=== PATIENT | female | born 1960 | race Caucasian/White ===

== ENCOUNTER 2016-04-29 11:43 | Inpatient (IN) ==
[2016-04-29] MEDS ORDERED: ASPIRIN PO ONE (11:50)
[2016-04-29] MEDS ORDERED: ASPIRIN ONE (11:54)
[2016-04-29 12:12] LABS: MANUAL DIFF NEEDED? NO
[2016-04-29 12:21] LABS: BASO% 0.2 % (0.0-0.8); EOS# 0.16 X1000 (0.0-0.7); HEMATOCRIT 45.3 % (37.0-47.0); HEMOGLOBIN 15.2 g/dL (12.0-16.0); IMM GRAN# 0.02 X1000 (0.0-0.04); IMM GRAN% 0.2 % (0.0-0.5); LYMPH% 28.4 % (20.5-51.1); MCH 27.8 PG (27-31); MCHC 33.6 g/dL (33-37); MONO# 0.71 X1000 (0.11-0.59); MONO% 8.8 % (1.7-9.3); MPV 11.4 FL (7.4-10.4); NEUT% 60.4 % (42.2-75.2); PLT 244 X1000 (130-400); RBC 5.46 XMIL (4.2-5.4)
[2016-04-29 12:32] LABS: CALCIUM 9.3 mg/dL (8.8-10.2); MAGNESIUM 1.9 mg/dL (1.5-2.7); POTASSIUM 3.2 mmol/L (3.5-5.1); TOTAL BILIRUBIN 0.3 mg/dL (0.20-1.00); TOTAL PROTEIN 7.2 g/dL (6.3-8.3)
--- NOTE | 2016-04-29 12:35 | ED EKG INTERP ---
EKG Interpretation - EKG Time of EKG reading by physician:: 11:47 EKG Read and Signed by:: Tio Hoskins EKG Interpretation (*Must complete 3 of following elements*): Normal Rate: 94 Rhythm: normal sinus rhythm Comments: normal ECG Attestation - Scribe Verification/Attestation Scribe:: Julianne Stout Acting as Scribe for:: Tio Hoskins Scribe documention review:: This chart was documented by a scribe and accurately reflects the service the provider performed and the decisions made by the provider.
[2016-04-29 12:51] LABS: INR 1.04 (0.86-1.15); PROTIME 13.9 Seconds (12.1-15.5)
--- NOTE | 2016-04-29 12:53 | EKG Report ---
Test Performed on : 04/29/2016 11:47:05 AM Test Reason : chest Blood Pressure : / mmHG Vent. Rate : 094 BPM Atrial Rate : 094 BPM P-R Int : 136 ms QRS Dur : 082 ms QT Int : 362 ms P-R-T Axes : 048 006 028 degrees QTc Int : 452 ms Normal sinus rhythm. Normal ECG When compared with ECG of 28-JUN-2015 22:50, ST elevation now present in Lateral leads Unconfirmed Result
--- NOTE | 2016-04-29 13:09 | PROVIDER DOCUMENTATION ---
Addendum entered and electronically signed by Julianne Stout Scribe 04/29/16 18:05 : Progress - CONSULTS/PCP/HOSPITALIST Notification #1 *Consult/PCP/Hospitalist*: Dr. Shepard Time Discussed: 18:00 (Dr. Shepard states will consulted for cardiology ) Reason/Comments: Dr. Hoskins consulted with Dr. Shepard about Pt Consult Disposition: other (Dr. Shepard states consult with hospitialist about admit of Pt. Dr. Shepard states make PT NPO at midnight and will cath tomorrow.) #2 Consult: Brenda Lora Hospitalist Time Discussed: 18:02 (Hospitalist accepted admit ) Reason/Comments: Dr. Hoskins consults with Brenda Lora Hospitalist about admit of PT Consult Disposition: Admit Addendum entered and electronically signed by Julianne Stout Scribe 04/29/16 17:47 : EKG Interpretation - EKG Time of EKG reading by physician:: 17:17 EKG Read and Signed by:: Tio Hoskisn EKG Interpretation (*Must complete 3 of following elements*): Abnormal Rate: 85 Rhythm: normal sinus rhythm Comments: nonspecific ST and T wave abnormality Addendum entered and electronically signed by Tio Hoskins MD 04/29/16 16:48: Physician Attestation - Physician Attestation I, the provider, attest to the following statement:: Tio Hoskins Physician documentation Attestation:: This documentation recorded by the scribe accurately reflects the service I personally performed and the decisions made by me. Original Note: HPI-Chest Pain - General Source: patient, family - History of Present Illness-CP Location: reports: central Chest Pain Radiation: reports: arms (R armpit), neck (anterior) Quality of Pain: reports: pressure Severity in ED: mild Onset/Duration: this morning (1000) Timing: still present, improving Context/Activities at Onset: reports: light activity Modifying Factors: improves with: nothing Associated Symptoms: reports: diaphoresis, headache, nausea, shortness of breath , weakness. denies: abdominal pain, back pain, dizziness, edema, fatigue, fever /chills, heartburn, rash, swelling/lump in chest, syncope, vomiting Nitro Today/Relief: no nitro taken today Aspirin Treatment Today: no aspirin today Prior Chest Pain/Cardiac Workup: reports: cardiac cath Similar Symptoms Previously?: Yes Recently Seen Here or By Another Healthcare Provider: No <Julianne Stout - Last Filed: 04/29/16 16:14> <Tio Hoskins - Last Filed: 04/29/16 16:47> - General Chief Complaint: Chest Pain Stated Complaint: CHEST PAIN Time Seen by Provider: 04/29/16 11:58 Allergies/Adverse Reactions: Patient Allergies Allergy/AdvReac Type Severity Reaction Status Date / Time codeine Allergy HIVES Verified 11/10/14 00:20 Home Medications: Home Medication List Medication Instructions Recorded Confirmed Last Taken Type Levothyroxine Sodium [Synthroid] 150 microgm PO DAILY 09/03/13 06/28/15 07:00 History Lisinopril 20 mg PO BID 09/03/13 06/28/15 11/09/14 08:00 History Sitagliptin [Januvia] 50 mg PO DAILY 09/03/13 06/28/15 11/09/14 08:00 History Cyclosporine 0.05% Oph Drops 1 each BOTH EYES BID 11/10/14 06/28/15 11/09/14 20: 00 History [Restasis 0.05% Oph Drops] Gatifloxacin 0.3% Oph Soln [Zymar 1 drop BOTH EYES BID 11/10/14 06/28/15 20:00 History 0.3% Oph Soln] Morphine VEGETABLE VENDOR 30 mg IV DIRECTED 11/10/14 06/28/15 Unknown History Pantoprazole [Protonix] 40 mg PO DAILY@0700 #30 tablet 11/10/14 06/28/15 Unknown Rx Hydrocodone/APAP 5 mg/325 mg 1 tab PO PRN PRN 06/28/15 06/28/15 Unknown History [Weston-5] Promethazine [Phenergan] 25 mg PO Q6H PRN PRN #60 tablet 06/30/15 Unknown Rx Sucralfate [Carafate] 1 gm PO 4XDAY #180 tablet 06/30/15 Unknown Rx - History of Present Illness-CP Nature of Presenting Problem: Pt is 55 y/o F presents to the ED with chest pain. Pt states CP started at 1000 this am. Pt states she was just sitting in a doctors office when pain started. Pt states then going to PCP's walk in clinic and then decided to come to the ED. Pt states CP feels like someone is putting bricks on her chest. Pt states having SOB. Pt states mild MARMOLEJO. Pt states heart feels like it is racing. Pt states pain radiates to anterior neck and R armpit. Pt states recently having a stomach virus and could not hold anything down but water until last night. Pt states both parents of a [place]. Pt states having a cardiac cath done 8 years ago. (Julianne Stout) Review of Systems - Adult - REVIEW OF SYSTEMS - ADULT Constitutional: denies: chills, fever Eyes: denies: blurred vision, double vision Ears, Nose, Mouth & Throat: denies: ear pain, nose pain, throat pain Cardiovascular: reports: chest pain (central). denies: heart murmur, irregular heart rate Respiratory: reports: shortness of breath. denies: cough, wheezing Gastrointestinal: reports: nausea. denies: abdominal pain, diarrhea, vomiting Genitourinary: denies: dysuria, hematuria Musculoskeletal: reports: neck pain (anterior), other (R armpit). denies: bone pain, joint pain Integumentary: denies: hives, itching Neurological: reports: headache/migraines (MARMOLEJO). denies: dizziness/vertigo Psychiatric: reports: no symptoms reported Endocrine: reports: no symptoms reported Hematologic/Lymphatic: reports: no symptoms reported Allergic/Immunologic: reports: no symptoms reported All Other Systems: Reviewed and Negative <Julianne Stout - Last Filed: 04/29/16 16:14> Past History - Adult - PAST MEDICAL HISTORY-ADULT Review of Records: reports: Nursing Assessment Review, Medications Reviewed, Social history reviewed & non-contributory. Major Childhood Illnesses: reports: denies history Cardiovascular: reports: HTN Respiratory: reports: denies history Gastrointestinal: reports: denies history Obstetrical/Gynecological: reports: denies history Genitourinary: reports: denies history Musculoskeletal: reports: chronic pain Neurological: reports: denies history Endocrine/Immune: reports: Diabetes, thyroid disorder Other Conditions: reports: denies history - PRIOR SURGERIES/PROCEDURES Surgical/Procedure History: reports: BTL, back/neck (4 times ), other (internal pain pump) - PRIOR HOSPITALIZATIONS Prior Hospitalizations: reports: none - IMMUNIZATION STATUS Childhood Immunizations: See Nurse Assessment Flu Vaccine: See Nurse Assessment - FAMILY HISTORY Family History: CAD under 55yo - SOCIAL HISTORY Smoking: denies Substance Use: denies Living Situation: family <Julianne Stout - Last Filed: 04/29/16 16:14> Physical Exam-General - PHYSICAL EXAM-ADULT Initial Vital Signs Reviewed: Yes - CONSTITUTIONAL General Appearance: appears well, alert, no apparent distress, anxious - EYES Eyes: PERRL/EOMI, pink conjunctivae, fundi clear, no AV nicking - HEAD, EARS, NOSE, MOUTH & THROAT HENMT: normocephalic/atraumatic, moist mucous membranes, normal ENT inspection, TMs normal, pharynx normal - NECK Neck: non-tender, full range of motion, supple, normal inspection - RESPIRATORY Respiratory: chest non-tender, lungs clear, normal breath sounds, no pleuratic chest pain, no respiratory distress, no accessory muscle use - CARDIOVASCULAR Cardiovascular: normal peripheral pulses, regular rate, rhythm, no edema, no gallop, no JVD, no murmur - GASTROINTESTINAL (ABDOMEN) Abdominal Exam: normal bowel sounds, soft, no organomegaly, no pulsatile mass, tenderness (RUQ and epigastric) - LYMPHATIC Lymphatic: no adenopathy - MUSCULOSKELETAL Back Exam: normal inspection, no CVA tenderness, no vertebral tenderness Extremity: normal range of motion, non-tender, normal gait, normal inspection, no pedal edema, no calf tenderness, normal capillary refill - SKIN Integumentary: normal color, normal turgor, warm/dry - NEUROLOGIC Neurologic: grossly normal - PSYCHIATRIC Psych/Mental Status: normal mood/affect, oriented x 3 <Bradley Stouti - Last Filed: 04/29/16 16:14> Progress - XRAY 1 XRAY: Bilateral XRAY Study: Chest Impression: Normal XRAY Interpretation: no acute disease - CT/MRI 1 CT Study: Angiogram Impression: Abnormal ( ARTIS ground glass opacity, possible minimal pneumonia) CT Results: no pe, LAD calcifications. - CONSULTS/PCP/HOSPITALIST Notification #1 *Consult/PCP/Hospitalist*: Dr. Crow Time Discussed: 16:15 (Dr. Crow accepted admit ) Reason/Comments: Dr. Hoskins consulted with Dr. Crow about admit of PT Consult Disposition: Admit <GirishJulianne - Last Filed: 04/29/16 16:14> <Tio Hoskins - Last Filed: 04/29/16 16:47> - PLAN OF CARE/RESULTS Progress/Plan/Lab Results: Laboratory Tests 04/29/16 04/29/16 04/29/16 12:06 12:06 12:06 WBC RBC Hgb Hct MCV MCH MCHC RDW Std Deviation Plt Count MPV Immature Gran % (Auto) Neut % (Auto) Lymph % (Auto) Drew % (Auto) Eos % (Auto) Baso % (Auto) Immature Gran # (Auto) Neut # (Auto) Lymph # (Auto) Drew # (Auto) Eos # (Auto) Baso # (Auto) PT INR D-Dimer Sodium 139 Potassium 3.2 L Chloride 103 Carbon Dioxide 24 L Anion Gap 12 BUN 20 Creatinine 1.1 H Estimated GFR/1.73 m2 51 BUN/Creatinine Ratio 18 Glucose 186 H Calculated Osmolality 285 Calcium 9.3 Magnesium 1.9 Total Bilirubin 0.30 AST 57 H ALT 68 H Alkaline Phosphatase 71 Creatine Kinase 74 Troponin T 0.064 Adw-Q-Xdxlmtsdjrd Pept 301 H Total Protein 7.2 Albumin 4.0 Globulin 3.0 Albumin/Globulin Ratio 1.0 04/29/16 04/29/16 12:06 12:06 WBC 8.11 RBC 5.46 H Hgb 15.2 Hct 45.3 MCV 83.0 MCH 27.8 MCHC 33.6 RDW Std Deviation 13.7 Plt Count 244 MPV 11.4 H Immature Gran % (Auto) 0.2 Neut % (Auto) 60.4 Lymph % (Auto) 28.4 Drew % (Auto) 8.8 Eos % (Auto) 2.0 Baso % (Auto) 0.2 Immature Gran # (Auto) 0.02 Neut # (Auto) 4.90 Lymph # (Auto) 2.30 Drew # (Auto) 0.71 H Eos # (Auto) 0.16 Baso # (Auto) 0.02 PT 13.9 INR 1.04 D-Dimer 1.03 H Sodium Potassium Chloride Carbon Dioxide Anion Gap BUN Creatinine Estimated GFR/1.73 m2 BUN/Creatinine Ratio Glucose Calculated Osmolality Calcium Magnesium Total Bilirubin AST ALT Alkaline Phosphatase Creatine Kinase Troponin T Yda-L-Ojebtrzhtra Pept Total Protein Albumin Globulin Albumin/Globulin Ratio Orders Category Date Time Status Cardiac Monitoring DIRECTED Care 04/29/16 11:50 Active CHEST-2 VIEWS [RAD] Stat Exams 04/29/16 11:[address] THORAX W/CONTRAST [CT] Stat Exams 04/29/16 13:05 Ordered CBC WITH DIFF [HEME] Stat Lab 04/29/16 12:06 Completed CK PROFILE [SP CHEM] Stat Lab 04/29/16 12:06 Completed COMPREHENSIVE METABOLIC PANEL [CHEM] Stat Lab 04/29/16 12:06 Com[address] D-DIMER [address] [COAG] Stat Lab 04/29/16 12:06 Completed MAGNESIUM [CHEM] Stat Lab 04/29/16 12:06 Completed PRO B-NATRIURETIC PEPTIDE Stat Lab 04/29/16 12:06 Completed [address]IME WITH INR PL [COAG] Stat Lab 04/29/16 12:06 Completed TROPONIN T Stat Lab 04/29/16 12:06 Completed Aspirin Med 04/29/16 11:54 Discontinued 325 mg .ROUTE .STK-MED ONE Aspirin Med 04/29/16 11:50 Discontinued 325 mg PO NOW ONE EKG [EKG] Stat Ther 04/29/16 11:51 Draft Vital Signs - 24 hr 04/29/16 04/29/16 11:44 12:46 Temperature 98 F Pulse Rate 98 H 86 Respiratory 18 18 Rate Blood Pressure 166/103 137/99 O2 Sat by Pulse 99 98 Oximetry (Julianne Stout) Departure <Julianne Stout - Last Filed: 04/29/16 16:14> - Departure Time of Disposition Order: 16:41 Certified Medical Emergency: Emergent <Tio Hoskins - Last Filed: 04/29/16 16:47> - Departure DIAGNOSIS: Chest pain Qualifiers: Chest pain type: precordial pain Qualified Code(s): R07.2 - Precordial pain Disposition: ADMITTED INPATIENT 09 Condition: Good Additional Instructions: ED Follow Up Instructions: You have been treated by a care provider in the Emergency Department. These instructions are being provided to you so you can have an understanding of how to care for yourself upon discharge. Upon discharge from the Emergency Department, you are responsible for making arrangements for follow-up care by a physician of your choice. Take all prescribed medications as directed. Return to the Emergency Department immediately for any new or worsening symptoms. You may call the Physician Referral phone number at [phone] to obtain a list of Physicians who are taking new patients. Referrals: Irving Crow MD [Primary Care Provider] - Attestation - Scribe Verification/Attestation Scribe:: Julianne Stout Acting as Scribe for:: Tio Hoskins Scribe documention review:: This chart was documented by a scribe and accurately reflects the service the provider performed and the decisions made by the provider. <Julianne Stout - Last Filed: 04/29/16 16:14> Physician Attestation
--- NOTE | 2016-04-29 13:11 | Diag Imaging Result Document ---
PROCEDURE NAME: CHEST-2 VIEWS - 04/29/2016 CHEST X-RAY, 2 VIEWS: COMPARISON: 06/28/2015. FINDINGS: Stable right hemidiaphragm elevation. No focal infiltrates, pneumothorax, or pleural effusion. Heart size is normal. IMPRESSION: No acute disease or change from prior.
--- NOTE | 2016-04-29 15:29 | Diag Imaging Result Document ---
PROCEDURE NAME: ANGIOGRAM/PULMONARY ARTERIES - 04/29/2016 CT OF THE CHEST WITH INTRAVENOUS CONTRAST AND CLARITY: FINDINGS: There are no filling defects in the pulmonary arteries. The aorta is not distended and there is no evidence of aortic dissection. There are calcifications in the left anterior descending artery. There is some atelectasis or fibrosis in the left posterior costophrenic sulcus. There are some patchy ground-glass opacities present in the left upper lobe particularly around image 64. There are no previous studies. There is no evidence of significant adenopathy or abnormal fluid collections. IMPRESSION: 1. Coronary calcification in the left anterior descending artery. 2. No evidence of pulmonary emboli. 3. Minimal pneumonia left upper lobe.
[2016-04-29] MEDS ORDERED: ZOFRAN IV ONE (15:45)
[2016-04-29] MEDS ORDERED: MORPHINE IV PRN (16:50)
[2016-04-29] MEDS ORDERED: TYLENOL PO PRN ×2 (16:50→21:54)
[2016-04-29] MEDS ORDERED: ZOFRAN PO PRN (16:50)
[2016-04-29] MEDS ORDERED: NS 1,000 ML IV SCH ×2 (17:00→22:00)
[2016-04-29] MEDS ORDERED: NITROGLYCERIN TOP SCH (17:00)
[2016-04-29] MEDS ORDERED: ZOFRAN ODT PO PRN (17:18)
--- NOTE | 2016-04-29 17:34 | EKG Report ---
Test Performed on : 04/29/2016 5:17:23 PM Test Reason : serial for CP Blood Pressure : / mmHG Vent. Rate : 085 BPM Atrial Rate : 085 BPM P-R Int : 140 ms QRS Dur : 078 ms QT Int : 370 ms P-R-T Axes : 055 052 057 degrees QTc Int : 440 ms Normal sinus rhythm. Nonspecific ST and T wave abnormality Abnormal ECG When compared with ECG of 29-APR-2016 11:47, (Unconfirmed) ST elevation now present in Inferior leads Nonspecific T wave abnormality now evident in Lateral leads Unconfirmed Result
[2016-04-29] MEDS ORDERED: LOVENOX 1 MG/KG SUBQ ONE (17:59)
[2016-04-29] MEDS ORDERED: LOVENOX SUBQ ONE (18:15)
[2016-04-29] MEDS ORDERED: LOVENOX ONE (18:19)
[2016-04-29] MEDS ORDERED: LOVENOX 1 MG/KG SUBQ SCH (18:30)
[2016-04-29] MEDS: MORPHINE IV PRN ×3 (19:40→23:33)
[2016-04-29] MEDS ORDERED: HUMULIN R DOSE (PARKWAY) SUBQ SCH (21:00)
[2016-04-29] MEDS ORDERED: TOPROL XL PO ONE (21:00)
[2016-04-29 21:18] LABS: CK INDEX 12.3 (0.0-2.5); CK-MB 21.75 ng/mL (0.0-5.0)
--- NOTE | 2016-04-29 22:11 | HISTORY AND PHYSICAL ---
CHIEF COMPLAINT: Chest pain. HISTORY OF PRESENT ILLNESS: The patient is a 55-year-old female who notes that she has not had a stress test in multiple years. She was at home in her usual state of health and started having sudden onset of chest pain that continued to worsen. It began to make her nervous and, therefore, she came to the emergency department. She notes that she was having some shortness of breath. It almost felt like an elephant was sitting on her chest. She denies any previous coronary disease history. She states the pain started in her left mid chest and went to her right armpit and then to her left neck and left arm. She denied any abdominal pain or nausea. She denied any dysuria or frequency. She did have some shortness of breath and felt sweaty with the pain. ALLERGIES: Codeine. 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 REVIEW OF SYSTEMS: As noted above. Denies any fevers, chills. Denies any current nausea. Denies any vomiting. She states the pain started abruptly at 10 a.m. this morning. She was sitting in my office actually waiting for an appointment. She noted that the pain became so severe that she left and immediately went to the ER. She felt as though someone was putting bricks on her chest. She also felt that at times her heart was racing. She notes that she recently had a stomach virus and has not been able to hold anything down. She became very concerned noting that both parents of SC's. She denies any fevers, chills. Denies any dysuria, frequency, or urgency. Denies any hesitancy, polyuria, polydipsia. Denies any skin rashes, weight loss, weight gain. PAST MEDICAL HISTORY: Hypertension, chronic pain, diabetes, hypothyroidism. She had a BTL, neck and back surgery x4. She had internal pain pump placement. FAMILY HISTORY: Both parents passed of coronary artery disease and MIs. SOCIAL HISTORY: Patient lives at home. Does not smoke or drink. She is . PHYSICAL EXAMINATION: VITAL SIGNS: Reviewed. Temperature 98 degrees, pulse 98, respiratory BP 166/103, current 137/98, sat 90% on room air. GENERAL: Patient is well-developed, well-nourished. She is an overweight female who is currently in no real respiratory distress. She is awake, alert. NECK: Supple. CARDIOVASCULAR: Regular rate. CHEST: Relatively clear. ABDOMEN: Soft. EXTREMITIES: Moves all extremities. NEUROLOGIC: No changes. LABS: CBC normal. Potassium 3.2. First set of cardiac enzymes were negative. Troponin on her 2nd set however went from 0.064 to 0.411. ASSESSMENT: 1. Chest pain with acute elevation of her troponin certainly makes this more likely to be cardiac given her family history as well as her current risk factors of female, overweight, high blood pressure, diabetes. 2. Diabetes. 3. Hypothyroidism. 4. Chronic pain. PLAN: We will admit patient to the hospital. Dr. Shepard, Cardiology, has been consulted and desires that she be transferred over to [facility] for further evaluation and treatment. We will transfer her over to [facility]. We will continue Lovenox, nitroglycerin, aspirin. We will add Toprol as her heart rate and blood pressure both are elevated. Otherwise we will continue to follow. We will hold her MANSI inhibitor currently. We will continue her Synthroid. Continue her pain pump.
[2016-04-29] MEDS ORDERED: PATIENT'S OWN MED INJ SCH (22:15)
[2016-04-29] MEDS ORDERED: D50W SYRINGE IV PRN (22:17)
[2016-04-29] MEDS ORDERED: LOPRESSOR PO ONE (23:07)
[2016-04-29] MEDS ORDERED: MAGNESIUM SULFATE 2 GM/S.W.I. 50 ML IV ONE (23:07)
[2016-04-29] MEDS: NS 1,000 ML IV SCH (23:22)
[2016-04-29] MEDS: PROTONIX IV SCH (23:33)
[2016-04-29] MEDS: SODIUM CHLORIDE 0.9% INJ SCH (23:33)
[2016-04-29] MEDS: POTASSIUM CHLORIDE 20 MEQ/SWI 100 ML IV SCH (23:34)
--- NOTE | 2016-04-29 23:49 | HISTORY AND PHYSICAL ---
CHIEF COMPLAINT: Chest pain. HISTORY OF PRESENT ILLNESS: This is a 55-year-old female with history of hypertension, diabetes, hypothyroidism, presenting with chest pain starting around 10 o'clock this morning. Patient was pressure-like on the left side of her chest radiating to her back associated with shortness of breath, palpitations. Also radiated to the neck and armpit mostly on the right side. The patient recently had a gut bug and could not hold anything down up until yesterday. Patient does report family history of CAD. She has had a cardiac catheterization previously. She was waiting to see Dr. Crow and then I think was sent over to the ER for evaluation. EKG showed normal sinus, nonspecific ST changes but her cardiac markers are positive consistent with a [id number] myocardial infarction and she was admitted as such. PAST MEDICAL HISTORY: 1. Hypertension. 2. Diabetes. 3. Hypothyroidism. 4. Chronic pain disorder. PAST SURGICAL HISTORY: Reviewed and noncontributory. SOCIAL HISTORY: No tobacco or ethanol. FAMILY HISTORY: CAD in mother and father. Mother had her OH at 48, father at 62. ALLERGIES: Codeine. MEDICATIONS: She takes Januvia 100 daily, Synthroid 150 daily, morphine TURNER MACHINE, Jardiance 10 daily, lisinopril/hydrochlorothiazide 20/12.5 daily, and Victoza 1.2 mg subcu daily. REVIEW OF SYSTEMS: Otherwise negative times a 10 point review of systems. PHYSICAL EXAMINATION: VITAL SIGNS: Blood pressure 154/117, heart rate of 95, respiratory rate of 19, temperature 97.6 degrees, 96% saturation on 2 L. CARDIOVASCULAR: Regular rate and rhythm. No murmurs, gallops, or rubs. GENERAL: A well-developed female in no acute distress. HEAD: Normocephalic, atraumatic. EYES: Pupils equal, round, reactive to light. Extraocular movements were intact. EAR/NOSE/THROAT: She had moist mucous membranes. NECK: Supple. PULMONARY: Bilateral breath sounds. Clear to auscultation. GASTROINTESTINAL: Soft, nontender, nondistended. Bowel sounds are positive. EXTREMITIES: No clubbing or cyanosis. LYMPHATICS: No peripheral edema. NEUROLOGICAL: Nonfocal. LABORATORY DATA: Initial troponin 0.064, repeat was 0.485 with a positive MB. Repeat after that was 0.428 which has come down. PROBLEM LIST: 1. Pdi-[id number] myocardial infarction. We will continue to trend enzymes. She is on aspirin and Lovenox. Cardiology is been consulted. Anticipate cardiac cath tomorrow. We will make NPO. Defer to Cardiology about echo. 2. Hypothyroidism. Continue her thyroid medications. Follow TSH. 3. Hypokalemia. We will supplement. 4. Diabetes. Follow blood sugars closely. On sliding scale insulin. Check hemoglobin A1c.
[2016-04-30] MEDS ORDERED: LOPRESSOR PO SCH (02:00)
[2016-04-30] MEDS: MORPHINE IV PRN ×5 (02:31→23:59)
[2016-04-30] MEDS: POTASSIUM CHLORIDE 20 MEQ/SWI 100 ML IV SCH (03:20)
[2016-04-30] MEDS: NITROGLYCERIN TOP SCH ×4 (03:23→21:53)
[2016-04-30] MEDS ORDERED: NITROGLYCERIN TOP SCH (03:30)
[2016-04-30 03:47] LABS: HEMATOCRIT 40.1 % (37.0-47.0); HEMOGLOBIN 13.5 g/dL (12.0-16.0); MCH 28.4 PG (27-31); MCHC 33.7 g/dL (33-37); MCV 84.4 FL (81-99); MPV 11.4 FL (7.4-10.4); RBC 4.75 XMIL (4.2-5.4)
[2016-04-30] MEDS ORDERED: LOVENOX SUBQ SCH ×2 (06:00)
[2016-04-30] MEDS: HUMULIN R SUBQ SCH ×4 (06:27→21:56)
--- NOTE | 2016-04-30 07:03 | EKG Report ---
Test Performed on : 04/30/2016 06:28:20 AM Test Reason : serial for CP Blood Pressure : / mmHG Vent. Rate : 070 BPM Atrial Rate : 070 BPM P-R Int : 152 ms QRS Dur : 078 ms QT Int : 432 ms P-R-T Axes : 026 043 -01 degrees QTc Int : 466 ms Normal sinus rhythm. Nonspecific T wave abnormality Abnormal ECG When compared with ECG of 29-APR-2016 17:17, (Unconfirmed) Nonspecific T wave abnormality now evident in Inferior leads Confirmed by [place], Jose Ramon Larsen ([id number]) on 04/30/2016 9:31:30 AM
[2016-04-30] MEDS: SYNTHROID PO SCH (08:59)
[2016-04-30] MEDS: TOPROL XL PO SCH (08:59)
[2016-04-30] MEDS: ASPIRIN PO SCH (08:59)
[2016-04-30] MEDS ORDERED: SYNTHROID PO SCH (09:00)
[2016-04-30] MEDS ORDERED: ASPIRIN PO SCH (09:00)
--- NOTE | 2016-04-30 09:01 | CONSULTATION ---
DATE OF CONSULTATION: 04/30/2016 IMPRESSION: 1. Acute coronary syndrome. 2. Hypertension. 3. Type 2 diabetes mellitus. 4. Hypothyroidism. RECOMMENDATIONS: 1. Left heart catheterization, selective coronary angiography and possible coronary intervention to follow. Rationale for this approach along with potential hazards were reviewed with the patient, and she wished to proceed. 2. Reassess lipid profile. HISTORY: This 55-year-old white female with a past history of hypertension, type 2 diabetes mellitus, and hypothyroidism was admitted to the emergency room at [facility] for further evaluation of acute coronary syndrome. She has been under a lot of emotional stress of late, as her 38-year- old son who has what sounds like alcoholism has moved back into the home with her and her . She was seeing a counselor yesterday in regards to this and was under a lot of emotional stress. She started to experience progressive chest pressure that ultimately intensified and felt like a fist in her chest. She left the counselor's office, and after seeing her primary care physician's office not available, she went to the urgent care center. Her chest discomfort was ongoing and progressively intensifying. She started to get shortness of breath and a sensation that her throat was closing in. She also started to feel cold and clammy. She left the urgent care center and drove herself to the emergency room at [facility]. Her chest symptoms were relieved after treatment in the emergency room and lasted perhaps an hour. She has not had recurrence. ECG was nonspecific, and troponin was abnormal. She was subsequently given subcutaneous Lovenox and aspirin and transferred here for further care. She has not had any recurrence of chest discomfort. She recalls a previous cardiac catheterization about [address] Villarreal that was negative for any significant blockage. She has not had any chest symptoms of this nature prior to yesterday. She did have a "stomach bug" 4 days ago consisting of nausea and some vomiting in the evening. PAST MEDICAL HISTORY: 1. Hypertension. 2. Type 2 diabetes mellitus. 3. Hypothyroidism. 4. History of previous negative coronary angiography 8 years ago. 5. She is allergic or intolerant to codeine. MEDICATIONS PRIOR TO ADMISSION: As listed. SOCIAL HISTORY: Her first committed suicide. She has remarried. She is under a fair amount of stress related to her son who has what sounds like alcoholism who has returned to the home. She does not smoke or use alcohol. FAMILY HISTORY: Family history is positive for premature coronary disease. Her mother at age 48 from myocardial infarction. Her father also suffered a myocardial infarction and at age 64. REVIEW OF SYSTEMS: Pulmonary: Negative beyond history of present illness. Gastrointestinal: Negative beyond history of present illness. Negative. Constitutional: Negative beyond history of present illness. Remainder of review of systems negative beyond history of present illness with 14 total systems reviewed. PHYSICAL EXAMINATION: General: The patient is an overweight middle-aged female in no distress. Vital signs: Blood pressure 116/88, heart rate 72 and regular. HEENT: Extraocular movements appear intact. Mucous membranes are moist. Neck: Supple without jugular venous distention. There are no carotid bruits. Chest: Clear to auscultation bilaterally. Cardiac: Exam reveals a regular rate and rhythm without appreciable murmur or gallop. Abdomen: Soft, nontender. Bowel sounds are normal. Extremities: Without edema. Neurologic: Exam reveals her to be alert and fully oriented. Speech is fluent. She moves all 4 extremities equally well. Skin: Warm and dry. Psychiatric: Exam reveals her mood to be appropriate. ECG: ECG demonstrates sinus rhythm and nonspecific T-wave abnormality. LABORATORY DATA: Remarkable for a troponin of 0.428 peak.
[2016-04-30 09:16] LABS: AGAP 11; BUN 16 mg/dL (8-22); CALCIUM 8.2 mg/dL (8.8-10.2); CHLORIDE 105 mmol/L (98-107); COSMO 282; HDL 19 mg/dL (45-65); LDL 69 mg/dL; POTASSIUM 3.9 mmol/L (3.5-5.1); SODIUM 139 mmol/L (136-145); TCO2 23 mmol/L (25-35); TRIGLYCERIDES 129 mg/dL (35-135); VLDL 26 mg/dL
[2016-04-30] MEDS: ZOFRAN ODT PO PRN (10:51)
--- NOTE | 2016-04-30 11:05 | PROGRESS NOTE ---
DATE: 04/30/2016 SUBJECTIVE: This patient states that she is feeling better. She is still complaining of mild chest discomfort but otherwise she is fine. She denies nausea, vomiting, diarrhea, constipation. No fever. No chills. She feels anxious because of the procedure that will be done today. OBJECTIVE: Vital Signs: Temperature 97.8 degrees, pulse 74, respiratory rate 19, blood pressure 88/56, oxygen saturation of 96 on room air. HEENT: Head normocephalic. No trauma. PERRLA. Neck: Supple. No JVD. No masses. Central trachea. Chest: Clear to auscultation. No wheezing. No rales. Cardiovascular: RRR. No murmurs. Abdomen: Soft, nondistended. No hepatosplenomegaly. Obese. Extremities: No edema. No clubbing. No cyanosis. Neurological Examination: The patient is alert and oriented x3. No focal neurological deficits. Laboratory: WBC 9.5, hemoglobin 13.5, hematocrit 40.1, platelets 245,000. Sodium 139, potassium 3.9, chloride 105, bicarbonate 23, BUN 16, creatinine 0.9, glucose 156, hemoglobin A1c is 7, calcium 8.2. Troponins 0.485, 0.28, 0.302, 0.242. ASSESSMENT AND PLAN: 1. Chest pain, likely related to acute coronary syndrome/non-ST elevation myocardial infarction. This patient is not complaining of severe chest pain at this moment, just mild discomfort. She will have a left heart catheterization today. We will continue with the same treatment and anticoagulation. 2. Hypothyroidism. TSH is elevated. I asked for a T4. For now, we will continue with the same management. 3. Hypokalemia, resolved. 4. Type 2 diabetes. Her hemoglobin A1c is around 7. Glucose is 156. We will continue to monitor. CRITICAL CARE TIME: 35 minutes.
[2016-04-30] MEDS ORDERED: SODIUM CHLORIDE 0.9% 20 ML ONE (11:38)
[2016-04-30] MEDS ORDERED: NITROGLYCERIN ONE (11:38)
[2016-04-30] MEDS ORDERED: HEPARIN 1000 UNITS/NS 1,000 ML ONE (11:38)
[2016-04-30] MEDS ORDERED: VERSED ONE (13:04)
[2016-04-30] MEDS ORDERED: DILAUDID ONE (13:04)
[2016-04-30] MEDS: NS 1,000 ML IV SCH (14:17)
--- NOTE | 2016-04-30 14:18 | CARDIAC CATH REPORT ---
PROCEDURE NAME: - INDICATION FOR THE PROCEDURE: Patient with a troponin elevation consistent with non-ST elevation NV as well as symptoms concerning for angina. PROCEDURES PERFORMED: 1. Left heart catheterization. 2. Selective coronary angiography. 3. Left ventriculogram. PROCEDURE IN DETAIL: Ms. Orellana was brought to the catheterization laboratory in fasting state. Informed consent was obtained. Prepped in usual fashion. She was anesthetized over the right radial artery after Jose Ramon's test was proved adequate. A 5-Lithuanian sheath was placed via true Seldinger technique. Radial cocktail was administered. Catheters were introduced. Hemodynamic measurements made in the ascending thoracic aorta. Coronary angiography was performed in multiple views using a 4.5 radial T catheter for the left. We were unable to gauge the right coronary with this and used a 4-Lithuanian JR4. Left heart catheterization and left ventriculogram were performed using the JR4. At conclusion of procedure, all sheaths and catheters were removed. TR band was left inflated at 8 mL of air with good hemostasis. Good capillary refill. No apparent complications. There was 5 mL of blood loss. FINDINGS: 1. The left main originates from left coronary cusp. It appears normal. 2. Left anterior descending originates from the left main. It appears to have scant luminal irregularities in the proximal vessel but the remainder of the vessel appears normal. 3. Circumflex originates from the left main. It appears normal throughout its course. 4. Right coronary is a dominant vessel and originates from the right coronary cusp. There is 30% proximal lesion as well as a 20-30% midvessel lesion. Distal minor luminal irregularities. 5. Aortic blood pressure is 106/57 with a left ventricle pressure 105/10 with an LVEDP of 14. 6. Left ventriculogram was difficult secondary to using a 4-Lithuanian catheter. The estimated EF is around 25%. There did appear to be basilar hyperkinesis with hypokinesis of the more distal segments diffusely. ASSESSMENT: Ms. Orellana is a 55-year-old white female who presented with symptoms concerning for ACS. She had a troponin elevation consistent with non-ST elevation NV. PLAN: She does not have any flow-limiting coronary lesions to identify a potential culprit lesion. Her left ventriculogram as well as her clinical history seem most consistent with a takotsubo type cardiomyopathy. At this point, we would recommend continued medical therapy of her reduced ejection fraction. She will return to the ICU for usual postprocedure convalescence. I have conveyed the results of this test to her primary die sizer, Dr. Shepard.
[2016-04-30] MEDS: SODIUM CHLORIDE 0.9% INJ SCH (23:55)
[2016-04-30] MEDS: PROTONIX IV SCH (23:55)
[2016-05-01] MEDS: MORPHINE IV PRN ×5 (05:36→21:33)
[2016-05-01] MEDS: NITROGLYCERIN TOP SCH ×3 (05:41→15:33)
[2016-05-01] MEDS: HUMULIN R SUBQ SCH ×4 (06:19→21:32)
[2016-05-01] MEDS: SYNTHROID PO SCH (08:00)
[2016-05-01] MEDS: TOPROL XL PO SCH (08:00)
[2016-05-01] MEDS: ASPIRIN PO SCH (08:00)
[2016-05-01] MEDS: ZOFRAN ODT PO PRN (08:52)
[2016-05-01 08:57] LABS: MANUAL DIFF NEEDED? NO
[2016-05-01 09:02] LABS: BASO% 0.7 % (0.0-0.8); EOS# 0.21 X1000 (0.0-0.7); EOS% 2.4 % (0.0-10.0); HEMATOCRIT 40.2 % (37.0-47.0); HEMOGLOBIN 13.5 g/dL (12.0-16.0); IMM GRAN# 0.03 X1000 (0.0-0.04); IMM GRAN% 0.3 % (0.0-0.5); LYMPH# 2.04 X1000 (1.2-3.4); LYMPH% 23.5 % (20.5-51.1); MCH 28.4 PG (27-31); MCHC 33.6 g/dL (33-37); MCV 84.5 FL (81-99); MONO# 0.66 X1000 (0.11-0.59); MONO% 7.6 % (1.7-9.3); MPV 11.5 FL (7.4-10.4); NEUT% 65.5 % (42.2-75.2); PLT 214 X1000 (130-400); RBC 4.76 XMIL (4.2-5.4)
[2016-05-01 09:31] LABS: AGAP 8; ALKALINE PHOSPHATASE 54 U/L (32-104); BUN 12 mg/dL (8-22); CHLORIDE 101 mmol/L (98-107); COSMO 276; GOT 24 U/L (10-30); GPT 32 U/L (10-36); HDL 24 mg/dL (45-65); LDL 76 mg/dL; POTASSIUM 3.6 mmol/L (3.5-5.1); SODIUM 137 mmol/L (136-145); TCO2 28 mmol/L (25-35); TOTAL BILIRUBIN 0.53 mg/dL (0.20-1.00); TOTAL PROTEIN 5.9 g/dL (6.3-8.3); TRIGLYCERIDES 102 mg/dL (35-135); VLDL 20 mg/dL
--- NOTE | 2016-05-01 15:19 | PROGRESS NOTE ---
DATE: 05/01/2016 SUBJECTIVE: This patient states that she is feeling better. She is not complaining of chest pain today, she is complaining of back pain. OBJECTIVE: Vital Signs: Temperature 98.0 degrees, pulse 79, respiratory rate 16, blood pressure 131/80, O2 saturation 97% on room air. HEENT: Head normocephalic. No trauma. PERRLA. Neck: Supple. No JVD. No masses. Central trachea. Chest: Clear to auscultation. No wheezing. No rales. Cardiovascular: RRR. No murmurs. No gallops. No rubs. Abdomen: Soft, nontender, nondistended. No hepatosplenomegaly. Extremities: No edema. No clubbing. No cyanosis. Neurological: Patient is alert and oriented x3. No focal neurological deficits. LABORATORY: WBC 8.6, hemoglobin 13.5, hematocrit 40.2, platelets 214,000. Sodium 137, potassium 3.6, chloride 101, bicarbonate 28, BUN 12, creatinine 0.7, glucose 144, calcium 8, albumin 3. ASSESSMENT AND PLAN: 1. Chest pain. This patient had a left heart catheterization that is consistent with takotsubo type cardiomyopathy, she has been transferred from the ICU to the medical floor and this patient has been placed on metoprolol succinate 25 mg p.o. daily, and we will continue with telemetry. Hopefully tomorrow we will be able to discharge this patient home. 2. Hypothyroidism. TSH is elevated but T4 is normal. In the future we need to ask for a new TSH and T4 as an outpatient. 3. Type 2 diabetes. The hemoglobin A1c is 7. We will continue with the same treatment and monitoring. 4. Hypokalemia. Resolved.
--- NOTE | 2016-05-01 17:04 | ECHO REPORT ---
ORDER DATE: 04/30/2016 INTERPRETING PHYSICIAN: Dr. Fernandez REQUESTING PHYSICIAN: CLINICAL INDICATIONS: This is a 55-year-old female with takotsubo syndrome, morbidly obese. M-MODE MEASUREMENTS: Right ventricle: 2.3 cm. Left ventricle end diastole: 4.4 cm. Left ventricle end systole: 2.8 cm. Posterior wall: 1.2 cm. Interventricular septum: 1.1 cm. Left atrium: 4.3 cm. Aortic root: 3.1 cm. SUMMARY OF 2-DIMENSIONAL IMAGIN. The left ventricular chamber appears to be mildly enlarged. 2. There is significant impairment of the distal interventricular septum, distal inferior wall, distal anterior wall, distal lateral wall and apex of the left ventricle consistent with a clinical suspicion of takotsubo cardiomyopathy. 3. The basal segments showed hyperdynamic contractility. 4. The global ejection fraction appears to be somewhere in the range of 45% to 50%. 5. This study is somewhat difficult. 6. The right ventricle is normal. 7. Pulmonic valve shows mild degree of regurgitation. 8. The tricuspid valve shows also mild degree of regurgitation. 9. The pulmonary pressure is somewhere in the range of 32 to 37 mmHg. 10.Mitral valve shows mild to moderate degree of regurgitation. 11.The pulse wave Doppler of mitral inflow is normal. 12.Tissue Doppler of septal and lateral mitral annulus averages 9 cm. 13.The pulmonary venous flow shows normal pattern. 14.The aortic valve looks normal. Color flow mapping is unremarkable. 15.There is no pericardial effusion, masses or thrombus. CONCLUSIONS: 1. Mildly enlarged left ventricle with significant impairment of the mid to apical segments of all the kraft including the septum, the lateral wall, the inferior wall, the anterior wall and the true apex, consistent with a clinical suspicion of takotsubo cardiomyopathy. The global ejection fraction appears to be in the range of 45% to 50%. 2. Mild to moderate degree of mitral regurgitation. 3. No diastolic dysfunction. 4. Pulmonary pressure in the range of 32 to 37 mmHg. Clinical correlation is recommended.
[2016-05-01] MEDS ORDERED: VASOTEC PO ONE (18:40)
[2016-05-01] MEDS: SODIUM CHLORIDE 0.9% INJ SCH (21:33)
[2016-05-01] MEDS: PROTONIX IV SCH (21:33)
[2016-05-02] MEDS: MORPHINE IV PRN ×3 (03:29→10:20)
[2016-05-02] MEDS: HUMULIN R SUBQ SCH ×2 (06:43→11:45)
[2016-05-02 07:32] LABS: AGAP 12; BUN 11 mg/dL (8-22); CALCIUM 8.5 mg/dL (8.8-10.2); CHLORIDE 102 mmol/L (98-107); COSMO 279; POTASSIUM 3.2 mmol/L (3.5-5.1); SODIUM 138 mmol/L (136-145); TCO2 24 mmol/L (25-35)
[2016-05-02] MEDS ORDERED: KLOR-CON PO ONE (08:04)
[2016-05-02] MEDS ORDERED: VASOTEC PO SCH (09:00)
[2016-05-02] MEDS: SYNTHROID PO SCH (09:57)
[2016-05-02] MEDS: ASPIRIN PO SCH (09:57)
[2016-05-02] MEDS: TOPROL XL PO SCH ×2 (09:57→10:00)
[2016-05-02 11:19] VITALS: BP 117/72
[2016-05-02] MEDS ORDERED: MIRALAX PO ONE (12:03)
--- NOTE | 2016-05-03 07:51 | DISCHARGE SUMMARY ---
ADMISSION DATE: 04/29/2016 DISCHARGE DATE: 05/02/2016 DISCHARGE DIAGNOSES: 1. Chest pain related with Takotsubo type cardiomyopathy. 2. Hypothyroidism. 3. Type 2 diabetes. 4. Systolic heart failure with an ejection fraction of 25%. CONSULTS: Cardiology department. PROCEDURES PERFORMED: CT angiogram of the thorax. Impression: Coronary calcification in the left anterior descending artery, no evidence of pulmonary emboli, minimal pneumonia of the left upper lobe. Cardiac catheterization dated 04/30/2016. Findings: Estimated ejection fraction is around 25% and left ventriculogram as well as her clinical history seem most consistent with a Takotsubo type cardiomyopathy. Echocardiogram dated 04/30/2016. Conclusion: Mild enlargement of the left ventricular area with significant impairment of the mid to apical segment. The ejection fraction appears to be 45%. Mild to moderate mitral regurgitation. No diastolic dysfunction. HOSPITAL COURSE: A 55-year-old female with a history of hypertension, diabetes, and hypothyroidism who presented with chest pain. It started on 04/29/2016, starting around 10 a.m. that day. She described the chest pain as pressure-like on the left side of her chest, radiating to the back and neck, and associated with shortness of breath and palpitations. This patient has a strong family history of coronary artery disease and actually apparently she has had a cardiac catheterization previously. This patient was evaluated at [facility] and they decided to transfer this patient to for further evaluation by cardiology. We decided to go ahead and do a cardiac catheterization that showed an ejection fraction of 25 and also changes consistent with Takotsubo type cardiomyopathy. This patient was improving on a daily basis. No obstructions were found during the procedure. Today, 05/02/2016, this patient has no complaints. This patient is feeling much better. This is why we decided to discharge this patient with strict followup by her primary care doctor and also by Dr. Paul Shepard. PHYSICAL EXAMINATION: Vital Signs: Temperature 98.4 degrees, pulse 75, respiratory rate 20, blood pressure 117/72, oxygen saturation 98 on room air. HEENT: Head normocephalic. No trauma. PERRLA. Neck: Supple. No JVD. No masses. Central trachea. Cardiovascular: RRR. No murmurs. Chest: Clear to auscultation. No wheezing. No rales. Abdomen: Soft, nontender, nondistended. No hepatosplenomegaly. Extremities: No edema. No clubbing. No cyanosis. Neurological Examination: Patient is alert and oriented x3. No focal neurological deficits. LABORATORY DATA: Sodium 138, potassium 3.2, chloride 102, bicarbonate 24, BUN 11, creatinine 0.7, glucose 173, calcium 8.5. FOLLOWUP: Followup by her primary care physician in 1 week and also followup by Dr. Paul Shepard, she needs to call next Wednesday to set up an appointment. DISCHARGE MEDICATION: Victoza 1.2 mg subcutaneous daily, Januvia 100 mg p.o. daily, morphine [employer] 30 mg IV as directed, levothyroxine 150 mcg p.o. daily, Jardiance 10 mg p.o. daily, metoprolol succinate ER 25 mg p.o. daily, enalapril 2.5 mg p.o. daily, aspirin 81 mg p.o. daily.
== END 2016-05-02 15:18 | disposition home or self-care (01) | DRG 287 ==
LOC: P.ED 11:43 → P.MEDSURG 11:44 → ICU 21:04 → 4N 05-01 11:47
PROVIDERS: ATTEND Internal Medicine
PROC: 4A023N7 Measurement of Cardiac Sampling and Pressure, Left Heart, Percutaneous Approach (ICD-10-PCS; principal; 2016-04-29)
PROC: B2111ZZ Fluoroscopy of Multiple Coronary Arteries using Low Osmolar Contrast (ICD-10-PCS; 2016-04-29)
PROC: B2151ZZ Fluoroscopy of Left Heart using Low Osmolar Contrast (ICD-10-PCS; 2016-04-29)
DX: I51.81 Takotsubo syndrome (principal); I50.20 Unspecified systolic (congestive) heart failure; I24.9 Acute ischemic heart disease, unspecified; E11.9 Type 2 diabetes mellitus without complications; Z82.49 Family history of ischemic heart disease and other diseases of the circulatory system; E66.3 Overweight; G89.4 Chronic pain syndrome; E87.6 Hypokalemia; E03.9 Hypothyroidism, unspecified; I34.0 Nonrheumatic mitral (valve) insufficiency; I10 Essential (primary) hypertension; Z79.891 Long term (current) use of opiate analgesic; Z79.84 Long term (current) use of oral hypoglycemic drugs; Z79.899 Other long term (current) drug therapy
CPT/HCPCS: 36415; 71020; 71275; 80048; 80053; 80061; 82550; 82553; 82948; 83036; 83735; 83880; 84439; 84443; 84484; 85025; 85027; 85379; 85610; 93005; 93010; 93306; 93458; 96372; 96374; 96375; C9113; J1170; J1644; J1650; J2250; J2270; J2405; J3475; J3480; J7030; Q9967; S0164

== ENCOUNTER 2019-02-02 19:40 | Inpatient (IN) ==
[2019-02-02] MEDS ORDERED: TORADOL IV ONE (21:25)
[2019-02-02] MEDS ORDERED: NS 1,000 ML IV ONE (21:26)
[2019-02-02 23:34] LABS: BASO# 0.04 X1000 (0.0-0.2); BASO% 0.2 % (0.0-0.8); EOS# 0.05 X1000 (0.0-0.7); EOS% 0.2 % (0.0-10.0); HEMATOCRIT 47.9 % (37.0-47.0); HEMOGLOBIN 15.7 g/dL (12.0-16.0); IMM GRAN# 0.07 X1000 (0.0-0.04); IMM GRAN% 0.3 % (0.0-0.5); LYMPH# 2.89 X1000 (1.2-3.4); LYMPH% 13.3 % (20.5-51.1); MCH 27.9 PG (27-31); MCHC 32.8 g/dL (33-37); MCV 85.2 FL (81-99); MONO# 1.38 X1000 (0.11-0.59); MONO% 6.3 % (1.7-9.3); MPV 12.1 FL (7.4-10.4); NEUT# 17.36 X1000 (1.4-6.5); NEUT% 79.7 % (42.2-75.2); PLT 274 X1000 (130-400); RBC 5.62 XMIL (4.2-5.4); WBC 21.79 X1000 (4.8-10.8)
[2019-02-02 23:41] LABS: AGAP 14; ALB/GLOB RATIO 1.2; ALBUMIN 3.7 g/dL (3.5-5.0); ALKALINE PHOSPHATASE 105 U/L (32-104); BUN 10 mg/dL (8-22); CALCIUM 9.3 mg/dL (8.8-10.2); CHLORIDE 94 mmol/L (98-107); COSMO 270; CREATININE 0.8 mg/dL (0.5-0.9); ESTIMATED GFR > 60; GLUCOSE 182 mg/dL (70-104); GOT 28 U/L (10-30); GPT 50 U/L (10-36); POTASSIUM 3.8 mmol/L (3.5-5.1); SODIUM 133 mmol/L (136-145); TCO2 25 mmol/L (25-35); TOTAL BILIRUBIN 1.06 mg/dL (0.20-1.00); TOTAL PROTEIN 6.9 g/dL (6.3-8.3)
[2019-02-03] MEDS ORDERED: ZOFRAN IV ONE (00:06)
--- NOTE | 2019-02-03 00:08 | PROVIDER DOCUMENTATION ---
HPI-Abdominal Pain/GI Problem - General Chief Complaint: Return/Recheck Stated Complaint: FOR INFUSION Time Seen by Provider: 02/02/19 20:43 Source: patient, family Allergies/Adverse Reactions: Patient Allergies Allergy/AdvReac Type Severity Reaction Status Date / Time codeine Allergy HIVES Verified 02/02/19 21:51 Home Medications: Home Medication List Medication Instructions Recorded Confirmed Last Taken Type Levothyroxine Sodium [Synthroid] 150 microgm PO DAILY 09/03/13 02/03/19 02/17/18 History Sitagliptin [Januvia] 100 mg PO DAILY 09/03/13 02/03/19 02/17/18 History Empagliflozin [Jardiance] 10 mg PO DAILY 04/29/16 02/03/19 02/17/18 History Liraglutide [Victoza] 1.2 mg SQ DAILY 04/29/16 02/03/19 02/17/18 History Aspirin 81 mg PO DAILY #0 chewtab 05/02/16 02/03/19 02/17/18 Rx ENALApril [Vasotec] 2.5 mg PO DAILY #90 tablet 05/02/16 02/03/19 02/17/18 Rx Metoprolol Succinate E.r. [Toprol 25 mg PO DAILY #90 tablet 05/02/16 02/03/19 02/17/18 Rx Xl] Levofloxacin [Levaquin] 750 mg PO DAILY #4 tab 02/03/19 Unknown Rx Polyethylene Glycol 3350 [Miralax] 17 gm PO DAILY powder, packet 02/03/19 Unknown Rx - History of Present Illness-ABD Nature of Presenting Problems: Patient was evaluated here in the ED yesterday for lower abdominal pain. She has elevated wbc and ct revealed diverticulosis and constipation. Patient followed up with pcp today who gave her a short of abx at the clinic and discharged pt home on levaquine. Patient got a call from the ER regard a postive blood cx g rowing gram pos cocci. She presently reports moderate and persistent lower abdominal pain. No vomiting or diarrhea,. Abdominal Pain Onset Location: reports: RLQ, LLQ Pain Radiation: reports: no radiation Quality of Pain: reports: throbbing Timing: reports: still present Activities at Onset: reports: none Modifying Factors: improves with: nothing Associated Symptoms: reports: denies symptoms Last BM: unsure Review of Systems - Adult - REVIEW OF SYSTEMS - ADULT Constitutional: reports: no symptoms reported Eyes: reports: no symptoms reported Ears, Nose, Mouth & Throat: reports: no symptoms reported Cardiovascular: reports: no symptoms reported Respiratory: reports: no symptoms reported Gastrointestinal: reports: see HPI Genitourinary: reports: no symptoms reported Musculoskeletal: reports: no symptoms reported Integumentary: reports: no symptoms reported Neurological: reports: no symptoms reported Psychiatric: reports: no symptoms reported Endocrine: reports: no symptoms reported Hematologic/Lymphatic: reports: no symptoms reported Past History - Adult - PAST MEDICAL HISTORY-ADULT Review of Records: reports: Nursing Assessment Review, Medications Reviewed, Social history reviewed & non-contributory. Major Childhood Illnesses: reports: denies history Cardiovascular: reports: HTN, hyperlipidemia, DC Respiratory: reports: denies history Gastrointestinal: reports: denies history Obstetrical/Gynecological: reports: denies history Genitourinary: reports: denies history Musculoskeletal: reports: chronic pain Neurological: reports: denies history Endocrine/Immune: reports: Diabetes, thyroid disorder Other Conditions: reports: denies history - PRIOR SURGERIES/PROCEDURES Surgical/Procedure History: reports: BTL, back/neck (4 times ), other (internal pain pump) - PRIOR HOSPITALIZATIONS Prior Hospitalizations: reports: none - IMMUNIZATION STATUS Childhood Immunizations: See Nurse Assessment Flu Vaccine: See Nurse Assessment - FAMILY HISTORY Family History: CAD under 55yo - SOCIAL HISTORY Smoking: denies Substance Use: none/never Alcohol Use Frequency: never Living Situation: family Physical Exam-General - PHYSICAL EXAM-ADULT Initial Vital Signs Reviewed: Yes - CONSTITUTIONAL General Appearance: appears well, alert, moderate distress (due to pain) - EYES Eyes: PERRL/EOMI - HEAD, EARS, NOSE, MOUTH & THROAT HENMT: normocephalic/atraumatic, moist mucous membranes - NECK Neck: non-tender, full range of motion, supple - RESPIRATORY Respiratory: chest non-tender, lungs clear, normal breath sounds - CARDIOVASCULAR Cardiovascular: regular rate, rhythm, no edema - GASTROINTESTINAL (ABDOMEN) Abdominal Exam: tenderness (lower abd without guarding or rigidity) - MUSCULOSKELETAL Back Exam: normal inspection, no CVA tenderness Extremity: normal range of motion, non-tender - SKIN Integumentary: normal color - NEUROLOGIC Neurologic: no motor/sensory deficits - PSYCHIATRIC Psych/Mental Status: oriented x 3 Progress - PLAN OF CARE/RESULTS Progress/Plan/Lab Results: Vital Signs - 8 hr 02/02/19 19:43 Temperature 97.5 F L Pulse Rate 104 H Respiratory Rate 18 Blood Pressure 127/86 O2 Sat by Pulse Oximetry 96 Laboratory Results - last 24 hr 02/02/19 02/02/19 22:38 22:38 WBC 21.79 H RBC 5.62 H Hgb 15.7 Hct 47.9 H MCV 85.2 MCH 27.9 MCHC 32.8 L RDW Std Deviation 14.0 Plt Count 274 MPV 12.1 H Immature Gran % (Auto) 0.3 Neut % (Auto) 79.7 H Lymph % (Auto) 13.3 L [place] % (Auto) 6.3 Eos % (Auto) 0.2 Baso % (Auto) 0.2 Immature Gran # (Auto) 0.07 H Neut # (Auto) 17.36 H Lymph # (Auto) 2.89 [place] # (Auto) 1.38 H Eos # (Auto) 0.05 Baso # (Auto) 0.04 Sodium 133 L Potassium 3.8 Chloride 94 L Carbon Dioxide 25 Anion Gap 14 BUN 10 Creatinine 0.8 Estimated GFR/1.73 m2 > 60 BUN/Creatinine Ratio 13 Glucose 182 H Calculated Osmolality 270 Calcium 9.3 Total Bilirubin 1.06 H AST 28 ALT 50 H Alkaline Phosphatase 105 H Total Protein 6.9 Albumin 3.7 Globulin 3.2 Albumin/Globulin Ratio 1.2 Orders Category Date Time Status CBC WITH DIFF [HEME] Stat Lab 02/02/19 22:38 Completed CMP [COMPREHENSIVE METABOLIC PANEL] [CHEM] Stat Lab 02/02/19 22:38 Completed UA [URINALYSIS W/POSS RFLX CULT] [URINALYSIS] Stat Lab 02/03/19 00:05 Uncollected 0.9% Sodium Chloride Inj [Ns] 1,000 ml Med 02/02/19 21:26 Discontinued IV 999 mls/hr Ketorolac [Toradol] Med 02/02/19 21:25 Discontinued 30 mg IV NOW ONE Ondansetron [Zofran] Med 02/03/19 00:06 Once 4 mg IV NOW ONE Result Diagrams: 02/03/19 11:40 02/03/19 11:40 Departure - Departure Date of Disposition Decision: 02/03/19 Time of Disposition Decision: 00:07 DIAGNOSIS: Diverticulitis Constipation Qualifiers: Constipation type: other constipation type Qualified Code(s): K59.09 - Other constipation Leukocytosis Qualifiers: Leukocytosis type: unspecified Qualified Code(s): D72.829 - Elevated white blood cell count, unspecified Disposition: ADMITTED INPATIENT 09 Certified Medical Emergency: Emergent Condition: Stable - Critical Care Note This patient required my direct & personal management of CC.: No Attestation - Physician/ ANG Attestation Patient care was provided by Advanced Practice Provider:: No The physician spent face to face time with patient:: Yes Advanced Practice Provider documentation review:: Supervising physician onsite and consulted in the evaluation and care of this patient. The physician did have a face to face encounter with the patient.
[2019-02-03] MEDS ORDERED: MORPHINE IV ONE ×2 (01:35→06:34)
[2019-02-03 04:34] LABS: URINE SOURCE CLEAN CATCH
[2019-02-03 04:41] LABS: BILIRUBIN URINE NEGATIVE (NEGATIVE); BLOOD URINE LARGE (NEGATIVE); COLOR ORANGE; GLUCOSE URINE >1000 mg/dL (NEGATIVE); KETONE URINE 60 mg/dL (NEGATIVE); LEUKOCYTES URINE LARGE (NEGATIVE); NITRITE URINE NEGATIVE (NEGATIVE); PROTEIN URINE 50 mg/dL (NEGATIVE); TURBIDITY URINE TURBID (CLEAR); UR EPITHELIAL CELLS >10 /HPF (<10); URINE BACTERIA NEGATIVE /HPF; URINE RBC TNTC /HPF (<10); URINE WBC TNTC /HPF (<10); UROBILINOGEN URINE 2 mg/dL (NORMAL)
[2019-02-03 04:41] LABS: INR 1.3; PROTIME 16.4 Seconds (11.0-16.0)
[2019-02-03 04:42] LABS: PTT 31.8 Seconds (22.3-41.8)
[2019-02-03] MEDS ORDERED: VANCOMYCIN IV PER PHARMACY MISC SCH (06:15)
--- NOTE | 2019-02-03 07:20 | Diag Imaging Result Doc PS360 ---
EXAM: CHEST-PORTABLE HISTORY: Chest Pain TECHNIQUE: Single view COMPARISON: 01/31/2019 FINDINGS: The lungs are well expanded. The heart is not enlarged. The vessels are not distended. There are no infiltrates. No effusion identified. There is a left lower granuloma. IMPRESSION: Negative exam. Electronically signed by Cheng Mtathew 02/03/2019 7:18 AM
--- NOTE | 2019-02-03 07:34 | EKG Report ---
Test Performed on : 02/03/2019 06:53:45 AM Test Reason : Chest Pain Blood Pressure : / mmHG Vent. Rate : 090 BPM Atrial Rate : 090 BPM P-R Int : 128 ms QRS Dur : 082 ms QT Int : 378 ms P-R-T Axes : 018 004 021 degrees QTc Int : 462 ms Normal sinus rhythm. Normal ECG When compared with ECG of 31-JAN-2019 18:22, Previous ECG has undetermined rhythm, needs review T wave inversion no longer evident in Anterolateral leads Unconfirmed Result
[2019-02-03] MEDS ORDERED: VANCOMYCIN 2 GM in NS 500 ML IV ONE (08:00)
[2019-02-03] MEDS ORDERED: ZOFRAN IV PRN (09:41)
[2019-02-03] MEDS ORDERED: COLACE PO SCH (09:45)
[2019-02-03] MEDS ORDERED: MIRALAX PO SCH (09:45)
[2019-02-03] MEDS ORDERED: LEVAQUIN 750 MG in NS 150 ML IV SCH (09:45)
[2019-02-03] MEDS ORDERED: TYLENOL PO PRN (10:14)
[2019-02-03] MEDS ORDERED: HUMULIN R SUBQ SCH (11:00)
[2019-02-03 11:33] VITALS: BP 141/68
[2019-02-03] MEDS ORDERED: NS 1,000 ML IV ONE ×2 (12:00→12:15)
[2019-02-03 12:04] LABS: BASO# 0.03 X1000 (0.0-0.2); BASO% 0.2 % (0.0-0.8); EOS# 0.06 X1000 (0.0-0.7); EOS% 0.3 % (0.0-10.0); HEMATOCRIT 44.9 % (37.0-47.0); HEMOGLOBIN 14.6 g/dL (12.0-16.0); IMM GRAN# 0.05 X1000 (0.0-0.04); IMM GRAN% 0.3 % (0.0-0.5); LYMPH% 11.5 % (20.5-51.1); MCH 28.5 PG (27-31); MCHC 32.5 g/dL (33-37); MCV 87.5 FL (81-99); MONO# 0.78 X1000 (0.11-0.59); MONO% 4.5 % (1.7-9.3); MPV 12.3 FL (7.4-10.4); NEUT# 14.49 X1000 (1.4-6.5); NEUT% 83.2 % (42.2-75.2); PLT 216 X1000 (130-400); RBC 5.13 XMIL (4.2-5.4); RDW 14.5 % (11.5-14.5); WBC 17.41 X1000 (4.8-10.8)
[2019-02-03 12:34] LABS: AGAP 15; BUN 11 mg/dL (8-22); CALCIUM 8.7 mg/dL (8.8-10.2); CHLORIDE 98 mmol/L (98-107); COSMO 279; CREATININE 0.8 mg/dL (0.5-0.9); ESTIMATED GFR > 60; GLUCOSE 235 mg/dL (70-104); POTASSIUM 4.2 mmol/L (3.5-5.1); SODIUM 136 mmol/L (136-145); TCO2 23 mmol/L (25-35)
[2019-02-04] MEDS ORDERED: VANCOMYCIN 2 GM in NS 500 ML IV SCH (08:00)
--- NOTE | 2019-02-04 10:01 | HISTORY AND PHYSICAL ---
PRIMARY CARE PROVIDER: Dr. Hinson. DATE AND TIME: 02/03/2019 at 0500. CHIEF COMPLAINT: Abdominal pain and return recheck. HISTORY OF PRESENT ILLNESS: Ms Orellana is a 58-year-old female who was seen in the ER previously 2 days ago on January 31. She at that time was reporting chest pain and had also been reporting some lower abdominal pain as well. They did perform a chest x- ray which did not show any acute abnormalities. They also performed a CT abdomen and pelvis without contrast which showed constipation, colonic diverticulosis, though no evidence of diverticulitis. They did perform 2 sets of cardiac enzymes which were both noted to be negative. At that time, they did do a urinalysis. It did show ketones and moderate blood though was negative for nitrites, leukocytes, or bacteria. The patient was discharged home. She did go home though she reports that her chest pain has improved, it only intermittently hurts occasionally when her abdominal pain becomes worse. She is denying any type chest pain like she was feeling when she was seen in the ER 2 days ago, though she has reported that she has had continued lower abdominal pain and is still having some dysuria. She did present to Dr. Hinson's office. They did recheck a urine urinalysis and she was told that she had a urinary tract infection and if she did not feel better, to come to the ER for further treatment and possible fluids. The patient states that she went home, still had not really felt better, though was contacted by the ER at [facility] and was told that she needed to come back to the hospital for possible IV antibiotics. At that time, the patient had results of 2 separate sets of blood cultures that were positive for gram-positive cocci. She did present back to the ER. Though she still is having leukocytosis that was present on January 31 as well, her white blood cell count had slightly increased. It was [id number], is now [id number]. Though she is not reporting any fever, body aches, or chills. Her electrolytes today are within normal limits. Her glucose was slightly elevated at 182, though given that she still reported that she had occasionally had an episode or 2 at home of chest pain when her abdominal pain became worse, we did go ahead and do another set of cardiac enzymes which were negative. CK was 56. Troponin was less than 0.01. Her urinalysis today though did show large blood, large leukocytes, too numerous to count white blood cells, and she was reporting dysuria as well and does have leukocytosis. Given that she did just have a CT abdomen and pelvis 2 days ago and was negative for any acute abnormalities other than constipation, we did not repeat this at this time. We will go ahead and admit her and treat her for her urinary tract infection as well as her positive blood cultures. We are awaiting a sensitivity at this time. We have gone ahead and repeated a set of blood cultures as well to rule out any possible contamination. At this time, she is denying any headache, dizziness, shortness of breath or cough. She is reporting the lower abdominal pain that is a pressure-type soreness in nature that is constant. She has reported some nausea though denies any vomiting. She reports that she had her last bowel movement yesterday morning. She denies any hematochezia or melena. She did report that the chest pain that she has had a few times when her abdominal pain has become worse is left center in her chest and is a dull type pain. She denies any other pain, numbness, tingling, or swelling in extremities. The patient does have chronic back pain due to having 4 previous back surgeries. She has have an implanted continuous morphine pump, though she could not remember the basal rate at this time. She will be admitted to the medical floor for further treatment and evaluation. REVIEW OF SYSTEMS: A 14 point review of systems was conducted with the patient and all were negative except for pertinent positives mentioned in the above HPI. PAST MEDICAL HISTORY: 1. Hypertension. 2. Diabetes mellitus. 3. Hyperlipidemia. 4. Hypothyroidism. 5. Chronic pain disorder secondary to back pain. 6. Restless legs syndrome. 7. History of history of takotsubo cardiomyopathy. At that time in 2016, she was noted to have a systolic heart failure with an ejection fraction of 25%, though this has since resolved. The patient's last cardiac study was a myocardial perfusion scan in April 2018, which did show her to have a calculated left ventricular ejection fraction of 70%. The patient states that she has not had any further episodes of heart failure exacerbations. PAST SURGICAL HISTORY: 1. Tubal ligation. 2. Implantation of pain pump. 3. Back surgery x4. SOCIAL HISTORY: The patient has no known history of tobacco, alcohol or illicit drug use. FAMILY HISTORY: Her mother and father both did have a history of coronary artery disease. Her mother at a young age of 48 with a myocardial infarction and her father at age 62 with a myocardial infarction. ALLERGIES: Patient reports allergies to codeine. HOME MEDICATIONS: We are waiting for the patient's home medication list to be updated and verified. Once done so, we will continue appropriate medicines. DIAGNOSTIC DATA/LABORATORY [place]ULTS: [place] [address], hemoglobin 15.7, hematocrit 47.9, platelet count is 274,000. PT 16.4, INR 1.3, PTT is 31.8. Sodium is 133, potassium 3.8, chloride 94, serum bicarbonate is 25, BUN 10, creatinine 0.8 with a GFR greater than 60, glucose 182, calcium 9.3. Magnesium is 2. Total bilirubin is 1.06, AST 28, ALT 50, alkaline phosphatase is 105. CK 56, troponin less than 0.01. Urinalysis was obtained via clean catch, was noted to have protein, greater than 1000 glucose, ketones, large blood, large leukocytes, too numerous to count white blood cells though was negative for nitrites and bacteria. She did have blood cultures that were collected on 01/31/2019, which did have a preliminary result of having gram-positive cocci in both sets. We have collected 2 new blood culture sets as well as we do have a pending urine culture also. IMAGING: She did have a chest x-ray performed which showed no acute abnormalities. She also did have a CT abdomen and pelvis without contrast that was performed on January 31 which showed constipation, colonic diverticulosis, though there was no evidence of diverticulitis or bowel obstruction or abscess. There was no free air either. There was noted to be fatty infiltration of the liver, and the appendix was unremarkable. EKG was performed in the ER at 6:53 a.m. this morning on February 03, showed normal sinus rhythm at a rate of 90 with a QTc of 462. PHYSICAL EXAMINATION: VITAL SIGNS: Temperature 97.5 degrees, heart rate 78, respirations 18, blood pressure 127/82, oxygen saturation is 97% on room air. GENERAL: Ms. Orellana is a pleasant 58-year-old female. She was resting on the ER stretcher. She was in no acute distress. She was awake, alert, and able to answer questions appropriately. HEENT: Head is atraumatic, normocephalic. Pupils are equal, round, reactive to light, were 3 mm bilaterally and brisk. Oral mucosa was moist. Oropharynx is clear. NECK: Supple. Trachea midline. CARDIOVASCULAR: Patient has S1, S2 present. No murmurs, gallops, or rubs appreciated with a regular rate and rhythm. PULMONARY: Patient has symmetrical chest expansion bilaterally. Lung sounds are clear to auscultation in bilateral full colilns. ABDOMEN: Soft. Does not appear to be distended though she has a protuberant abdomen noted. She did report some generalized soreness upon palpation in her right and left lower quadrants though no rebound tenderness noted. In her right lower quadrant, you could palpate her implanted pain pump. Bowel sounds were present. There were slightly hypoactive. EXTREMITIES: No cyanosis or edema noted. Pulse, motor, and sensory were intact in all extremities. Radial and pedal pulses are 2+ bilaterally. INTEGUMENTARY: Skin is pink, warm, and dry. NEUROLOGICAL: Patient is alert and oriented to person, place, time, and situation. She was able move all extremities. There were no focal neurological deficits noted. ASSESSMENT AND PLAN: 1. Urinary tract infection. The patient has had a urine culture obtained. We also have re- collected blood cultures, though 1 her blood cultures sensitivity has come back, it was positive for Staphylococcus epidermidis. This is likely a contaminant. After further discussion with Dr. Salazar, who will be our attending physician, he did recommend to discontinue vancomycin and place the patient with antibiotic of IV Levaquin for treatment of her urinary tract infection. We are awaiting culture results from the second set of the 1st blood cultures as well as the second set of blood cultures and her urine culture. 2. Constipation. We have placed the patient with a bowel regimen of Colace twice daily as well as MiraLAX daily. 3. Abdominal pain. This is likely a combination of her pain from urinary tract infection as well as constipation. We will continue with treatment as mentioned above. The patient does have an implanted pain pump. We did provide her with a total of 2 separate IV pain medicine doses in the ER. We will try to hold off on any additional opioid pain medicines given her constipation. We have placed orders for p.r.n. Tylenol as well. 4. Leukocytosis. This is likely secondary to her urinary tract infection. We will continue treatment as mentioned above for #1. 5. Diabetes mellitus. We are awaiting the patient's home medication list to be verified. We have placed her with a sliding scale insulin per low-dose protocol. We will do pattern fingerstick blood sugars. 6. Chronic pain syndrome secondary to back pain. The patient does have an implanted morphine pain pump. At this time, we are waiting for her to bring to the hospital her list of medicines as well as what her basal rate her morphine is set at. We will continue this once this is obtained. 7. Deep vein thrombosis prophylaxis will be provided with sequential compression devices. She has been placed on the medical floor with telemetry. We will do vital signs q.4 hours, strict intake and output. We will repeat a CBC and BMP later on this morning. Further orders and recommendations pending hospital course, diagnostic studies, and physician evaluation. Dictated by SUDHAKAR Ferrari for Adonis Jewell MD cc: Adonis Jewell MD Patient presenting with abdominal pain. UA shows a picture of possible UTI. 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 Dr. Jewell. DEISY
--- NOTE | 2019-02-04 20:18 | DISCHARGE SUMMARY ---
ADMISSION DATE: 02/02/2019 DISCHARGE DATE: 02/03/2019 Brief Discharge Note: INTERVAL SUMMARY: The patient was called to return to care because of positive blood cultures from her previous admission. At that time, they were showing gram-positive cocci in both bottles. The patient also had UTI symptoms and malaise, which she had just started antibiotics from her PCP for. She did not have fever, chills, chest pain, dyspnea, cough. After laying in hospital bed overnight, the patient had some very low back pain, but no CVA tenderness. After patient's admission, previous blood cultures finalized as Staphylococcus epidermidis which was favored to be a contaminant. The patient had no central lines, no immunocompromising conditions, no recent hardware insertion to suggest a source for a true Staph epidermidis infection. The patient's pain pump was recently refilled, but this was assessed. The site looks good. There is no erythema, induration, fluctuance, or other sign of infection of the pain pump or the immediately adjacent area. The patient had just been started on Levaquin for her UTI by her PCP, which seems appropriate. In the extremely unlikely event that this Staph epidermidis culture represents true infection, it was extremely sensitive to Levaquin as well. Given Levaquin's excellent bioavailability, it should also treat this, but again this is thought to be extremely unlikely to be a true infection. The patient's vitals remains stable with no fever, no tachycardia. The patient did have a bit of a white count at 21, but this was on admission, but this came down to 17 prior to discharge. Lactate was negative. There were no other signs of systemic or uncontrolled infection. Blood culture and urine culture was repeated and was no growth at the time of discharge. She was discharged to continue course of Levaquin for a total of 10 days. The patient was instructed to return to care if she developed fever, chills, mid back pain, or other concerning signs or symptoms. Patient discharged to follow up with her PCP. The patient's other chronic medical conditions were stable over the course of this hospitalization. Chest x-ray on this hospitalization and recent CT abdomen and pelvis showed no acute process. [facility]
== END 2019-02-03 15:50 | disposition home or self-care (01) | DRG 690 ==
LOC: ED 19:40 → 4N 19:41 → SUATTDRO 19:41
PROVIDERS: ATTEND Internal Medicine

== ENCOUNTER 2019-02-13 02:10 | Inpatient (IN) ==
[2019-02-13] MEDS ORDERED: MORPHINE IV ONE (02:26)
[2019-02-13] MEDS ORDERED: NS 1,000 ML IV ONE ×4 (02:26→04:29)
[2019-02-13] MEDS ORDERED: ZOFRAN IV ONE (02:26)
[2019-02-13] MEDS ORDERED: NITROGLYCERIN SL ONE (02:27)
[2019-02-13] MEDS ORDERED: ASPIRIN PO ONE (02:30)
--- NOTE | 2019-02-13 02:38 | PROVIDER DOCUMENTATION ---
HPI-Chest Pain - General Chief Complaint: SEPSIS ALERT - D Stated Complaint: uti Time Seen by Provider: 02/13/19 02:11 Source: patient, EMS Allergies/Adverse Reactions: Patient Allergies Allergy/AdvReac Type Severity Reaction Status Date / Time codeine Allergy HIVES Verified 02/02/19 21:51 Home Medications: Home Medication List Medication Instructions Recorded Confirmed Last Taken Type Sitagliptin [Januvia] 100 mg PO DAILY 09/03/13 02/13/19 02/17/18 History Empagliflozin [Jardiance] 25 mg PO DAILY 04/29/16 02/13/19 02/17/18 History Aspirin 81 mg PO DAILY #0 chewtab 05/02/16 02/13/19 02/17/18 Rx ATORVAstatin [Lipitor] 20 mg PO DAILY 02/13/19 02/13/19 Unknown History ATORVAstatin [Lipitor] 40 mg PO DAILY 02/13/19 02/13/19 Unknown History Ciprofloxacin [Cipro] 500 mg PO DAILY 02/13/19 02/13/19 Unknown History Duloxetine HCl 60 mg PO DAILY 02/13/19 02/13/19 Unknown History Ergocalciferol (Vitamin D2) 1.25 mg PO BID 02/13/19 02/13/19 Unknown History [Vitamin D2] Levothyroxine Sodium [Synthroid] 137 mcg PO EVERY OTHER DAY 02/13/19 02/13/19 Unknown History Levothyroxine [Synthroid] 150 mcg PO EVERY OTHER DAY 02/13/19 02/13/19 Unknown History Losartan Potassium 50 mg PO DAILY 02/13/19 02/13/19 Unknown History Multivitamins/Minerals [Centrum 1 tab PO DAILY 02/13/19 02/13/19 Unknown History Silver] Pantoprazole Sodium 40 mg PO DAILY 02/13/19 02/13/19 Unknown History Pramipexole Di-HCl [Pramipexole 0.5 mg PO DAILY 02/13/19 02/13/19 Unknown History Dihydrochloride] - History of Present Illness-CP Nature of Presenting Problem: Patient was said to have had a UTI infection for weeks now. she could not tolerate levaquine, bactrim that much and she was started on cipro x 2 weeks . She does have fews pills left but has been having suprapubic pain in spite of treatment . Also having progressive fatigue. Report chest pain x 3 days but now radiating to the jaw without sob. Admits to nausea with few episodes of emesis and also subjective fever. Location: reports: other (retrosternal) Chest Pain Radiation: reports: no radiation Quality of Pain: reports: sharp Severity in ED: mild, moderate Onset/Duration: 3 days ago (getting worse) Timing: still present Context/Activities at Onset: reports: none Modifying Factors: improves with: nothing Associated Symptoms: reports: fatigue Nitro Today/Relief: no nitro taken today Aspirin Treatment Today: 81 mg x 1 Prior Chest Pain/Cardiac Workup: reports: no prior chest pain Review of Systems - Adult - REVIEW OF SYSTEMS - ADULT Constitutional: reports: fever (sunjective), fatique Eyes: reports: no symptoms reported Ears, Nose, Mouth & Throat: reports: no symptoms reported Cardiovascular: reports: chest pain Respiratory: reports: no symptoms reported Gastrointestinal: reports: see HPI, nausea Genitourinary: reports: see HPI Musculoskeletal: reports: no symptoms reported Integumentary: reports: no symptoms reported Neurological: reports: no symptoms reported Psychiatric: reports: no symptoms reported Endocrine: reports: no symptoms reported Hematologic/Lymphatic: reports: no symptoms reported Allergic/Immunologic: reports: no symptoms reported All Other Systems: Reviewed and Negative Past History - Adult - PAST MEDICAL HISTORY-ADULT Review of Records: reports: Nursing Assessment Review, Medications Reviewed, Social history reviewed & non-contributory. Major Childhood Illnesses: reports: denies history Cardiovascular: reports: HTN, hyperlipidemia, [place] Respiratory: reports: denies history Gastrointestinal: reports: denies history Obstetrical/Gynecological: reports: denies history Genitourinary: reports: denies history Musculoskeletal: reports: chronic pain Neurological: reports: denies history Endocrine/Immune: reports: Diabetes, thyroid disorder Other Conditions: reports: denies history - PRIOR SURGERIES/PROCEDURES Surgical/Procedure History: reports: BTL, back/neck (4 times ), other (internal pain pump) - PRIOR HOSPITALIZATIONS Prior Hospitalizations: reports: none - IMMUNIZATION STATUS Childhood Immunizations: See Nurse Assessment Flu Vaccine: See Nurse Assessment - FAMILY HISTORY Family History: CAD under 55yo Physical Exam-General - PHYSICAL EXAM-ADULT Initial Vital Signs Reviewed: Yes - CONSTITUTIONAL General Appearance: mild distress, lethargic - EYES Eyes: PERRL/EOMI - HEAD, EARS, NOSE, MOUTH & THROAT HENMT: normocephalic/atraumatic, moist mucous membranes, other (dry oral mucosa) - NECK Neck: non-tender, full range of motion, supple - RESPIRATORY Respiratory: chest non-tender, lungs clear, normal breath sounds - CARDIOVASCULAR Cardiovascular: tachycardia, other (skip beats) - GASTROINTESTINAL (ABDOMEN) Abdominal Exam: normal bowel sounds, soft, no organomegaly, no pulsatile mass, tenderness (suprapubic) - LYMPHATIC Lymphatic: no adenopathy - MUSCULOSKELETAL Back Exam: normal inspection, no vertebral tenderness Extremity: non-tender, no pedal edema - SKIN Integumentary: normal color, normal turgor - NEUROLOGIC Neurologic: entry level chemist II-XII nml as tested, grossly normal, no motor/sensory deficits - PSYCHIATRIC Psych/Mental Status: oriented x 3 - HEART Score HEART Score: History: Slightly Suspicious HEART Score: ECG: Non-Specific Repolarization Disturbance/LBBB/PM HEART Score: Age: 45-65 Years HEART Score: Risk Factors for Atherosclerotic Disease: > or = 3 Risk Factors or History of Atherosclerotic Disease HEART Score: Troponin: < or = Normal Limit Total HEART Score:: 4 Progress - PLAN OF CARE/RESULTS Progress/Plan/Lab Results: Vital Signs - 8 hr 02/13/19 02:15 02/13/19 03:06 02/13/19 04:00 Temperature 98.5 F Pulse Rate 126 H Respiratory Rate 18 Blood Pressure 152/96 152/96 O2 Sat by Pulse Oximetry 94 L 95 90 L Laboratory Results - last 24 hr 02/13/19 02/13/19 02/13/19 02:20 02:20 02:20 WBC 22.14 H RBC 5.50 H Hgb 15.4 Hct 46.3 MCV 84.2 MCH 28.0 MCHC 33.3 RDW Std Deviation 14.2 Plt Count 309 MPV 11.5 H Immature Gran % (Auto) 0.4 Neut % (Auto) 96.4 H Lymph % (Auto) 2.6 L [place] % (Auto) 0.5 L Eos % (Auto) 0.0 Baso % (Auto) 0.1 Immature Gran # (Auto) 0.08 H Neut # (Auto) 21.35 H Lymph # (Auto) 0.57 L [place] # (Auto) 0.12 Eos # (Auto) 0.00 Baso # (Auto) 0.02 PT 15.8 INR 1.24 PTT (Actin FS) 27.8 Sodium 132 L Potassium 3.7 Chloride 91 L Carbon Dioxide 20 L Anion Gap 21 BUN 12 Creatinine 1.0 H Estimated GFR/1.73 m2 57 BUN/Creatinine Ratio 12 Glucose 340 H POC Glucose Calculated Osmolality 278 Calcium 9.3 Total Bilirubin 0.73 AST 41 H ALT 39 H Alkaline Phosphatase 189 H Creatine Kinase 47 Troponin T Total Protein 6.8 Albumin 3.6 Globulin 3.2 Albumin/Globulin Ratio 1.1 Plasma Lactate Urine Source Urine Color Urine Turbidity Urine pH Ur Specific [place] Urine Protein Ur Glucose (Stick) Ur Ketones (Stick) Urine Blood Urine Nitrite Urine Bilirubin Urobilinogen Dipstick Urine Leukocytes Urine WBC (Auto) Urine RBC (Auto) U Epithel Cells (Auto) Urine Bacteria (Auto) 02/13/19 02/13/19 02/13/19 02:20 02:20 02:25 WBC RBC Hgb Hct MCV MCH MCHC RDW Std Deviation Plt Count MPV Immature Gran % (Auto) Neut % (Auto) Lymph % (Auto) [place] % (Auto) Eos % (Auto) Baso % (Auto) Immature Gran # (Auto) Neut # (Auto) Lymph # (Auto) [place] # (Auto) Eos # (Auto) Baso # (Auto) PT INR PTT (Actin FS) Sodium Potassium Chloride Carbon Dioxide Anion Gap BUN Creatinine Estimated GFR/1.73 m2 BUN/Creatinine Ratio Glucose POC Glucose 303 H D Calculated Osmolality Calcium Total Bilirubin AST ALT Alkaline Phosphatase Creatine Kinase Troponin T < 0.010 Total Protein Albumin Globulin Albumin/Globulin Ratio Plasma Lactate 4.0 H* Urine Source Urine Color Urine Turbidity Urine pH Ur Specific [place] Urine Protein Ur Glucose (Stick) Ur Ketones (Stick) Urine Blood Urine Nitrite Urine Bilirubin Urobilinogen Dipstick Urine Leukocytes Urine WBC (Auto) Urine RBC (Auto) U Epithel Cells (Auto) Urine Bacteria (Auto) 02/13/19 02/13/19 02/13/19 02:41 04:41 05:02 WBC RBC Hgb Hct MCV MCH MCHC RDW Std Deviation Plt Count MPV Immature Gran % (Auto) Neut % (Auto) Lymph % (Auto) [place] % (Auto) Eos % (Auto) Baso % (Auto) Immature Gran # (Auto) Neut # (Auto) Lymph # (Auto) [place] # (Auto) Eos # (Auto) Baso # (Auto) PT INR PTT (Actin FS) Sodium Potassium Chloride Carbon Dioxide Anion Gap BUN Creatinine Estimated GFR/1.73 m2 BUN/Creatinine Ratio Glucose POC Glucose 274 H Calculated Osmolality Calcium Total Bilirubin AST ALT Alkaline Phosphatase Creatine Kinase Troponin T Total Protein Albumin Globulin Albumin/Globulin Ratio Plasma Lactate 2.4 H Urine Source CLEAN CATCH Urine Color STRAW Urine Turbidity CLEAR Urine pH 6.0 Ur Specific [place] 1.022 Urine Protein TRACE A Ur Glucose (Stick) >1000 A Ur Ketones (Stick) TRACE A Urine Blood LARGE A Urine Nitrite NEGATIVE Urine Bilirubin NEGATIVE Urobilinogen Dipstick NORMAL Urine Leukocytes TRACE A Urine WBC (Auto) 20-40 A Urine RBC (Auto) TNTC A U Epithel Cells (Auto) <10 Urine Bacteria (Auto) 1+ 02/13/19 05:39 WBC RBC Hgb Hct MCV MCH MCHC RDW Std Deviation Plt Count MPV Immature Gran % (Auto) Neut % (Auto) Lymph % (Auto) [place] % (Auto) Eos % (Auto) Baso % (Auto) Immature Gran # (Auto) Neut # (Auto) Lymph # (Auto) [place] # (Auto) Eos # (Auto) Baso # (Auto) PT INR PTT (Actin FS) Sodium Potassium Chloride Carbon Dioxide Anion Gap BUN Creatinine Estimated GFR/1.73 m2 BUN/Creatinine Ratio Glucose POC Glucose 259 H Calculated Osmolality Calcium Total Bilirubin AST ALT Alkaline Phosphatase Creatine Kinase Troponin T Total Protein Albumin Globulin Albumin/Globulin Ratio Plasma Lactate Urine Source Urine Color Urine Turbidity Urine pH Ur Specific [place] Urine Protein Ur Glucose (Stick) Ur Ketones (Stick) Urine Blood Urine Nitrite Urine Bilirubin Urobilinogen Dipstick Urine Leukocytes Urine WBC (Auto) Urine RBC (Auto) U Epithel Cells (Auto) Urine Bacteria (Auto) Orders Category Date Time Status Cardiac Monitoring DIRECTED Care 02/13/19 02:14 Active IV Insertion ORDERED Care 02/13/19 02:14 Completed Notify MD of + Sepsis Screen NOW Care 02/13/19 02:14 Active Notify Physician As Ordered Care 02/13/19 02:14 Active CHEST-1 VIEW [RAD] Stat Exams 02/13/19 02:[address] ABD/PELVIS W/IV CONT ONLY [CT] Stat Exams 02/13/19 05:55 Ordered BLOOD CULTURE [BLDCUL] Stat Lab 02/13/19 02:20 Results CBC WITH DIFF [HEME] Stat Lab 02/13/19 02:20 Completed CK PROFILE [SP CHEM] Stat Lab 02/13/19 02:20 Completed COMPREHENSIVE METABOLIC PANEL [CHEM] Stat Lab 02/13/19 02:20 Completed LACTATE, PLASMA [CHEM] Lab 02/13/19 05:02 Completed LACTATE, PLASMA [CHEM] Lab 02/13/19 08:15 Uncollected LACTATE, PLASMA [CHEM] Q3H Lab 02/13/19 02:20 Completed PROTIME WITH INR [COAG] Stat Lab 02/13/19 02:20 Completed PTT [COAG] Stat Lab 02/13/19 02:20 Completed TROPONIN T Stat Lab 02/13/19 02:20 Completed UA [URINALYSIS W/POSS RFLX CULT] [URINALYSIS] Stat Lab 02/13/19 02:41 Completed URINE CULTURE [RM] Routine Lab 02/13/19 05:48 Ordered 0.9% Sodium Chloride Inj [Ns] 1,000 ml Med 02/13/19 04:29 Active IV 125 mls/hr 0.9% Sodium Chloride Inj [Ns] 1,000 ml Med 02/13/19 02:26 Discontinued IV 999 mls/hr 0.9% Sodium Chloride Inj [Ns] 1,000 ml Med 02/13/19 03:20 Discontinued IV 999 mls/hr 0.9% Sodium Chloride Inj [Ns] 1,000 ml Med 02/13/19 04:28 Discontinued IV 999 mls/hr 0.9% Sodium Chloride Inj [Ns] 250 ml Med 02/13/19 04:30 Active IV 125 mls/hr 0.9% Sodium Chloride Inj [Ns] 250 ml Med 02/13/19 04:28 Discontinued IV 999 mls/hr Aspirin Med 02/13/19 02:30 Discontinued 81 mg PO NOW ONE Hydromorphone [Dilaudid] Med 02/13/19 05:15 Discontinued 0.5 mg IV NOW ONE Insulin Human Regular [Humulin R] Med 02/13/19 04:27 Discontinued 10 unit IV NOW ONE Morphine Med 02/13/19 02:26 Discontinued 4 mg IV NOW ONE Nitroglycerin Sl [Nitroglycerin] Med 02/13/19 02:27 Discontinued 0.4 mg SL NOW ONE Ondansetron [Zofran] Med 02/13/19 02:26 Discontinued 8 mg IV NOW ONE Piperacillin/Tazobactam [Zosyn] 3.375 gm Med 02/13/19 03:18 Discontinued 0.9% Sodium Chloride Inj [Ns] 50 ml IV NOW Oxygen Device Stat Oth 02/13/19 02:14 Active Result Diagrams: 02/13/19 02:20 02/13/19 02:20 - CONSULTS/PCP/HOSPITALIST Notification #1 *Consult/PCP/Hospitalist*: Dr Esteban Time Discussed: 06:05 Consult Disposition: Will see in ED, Admit Departure - Departure Date of Disposition Decision: 02/13/19 Time of Disposition Decision: 06:23 DIAGNOSIS: Chest pain, Leukocytosis, Hypokalemia, UTI (urinary tract infection), Uncontr olled diabetes mellitus, Sepsis Disposition: ADMITTED INPATIENT 09 Certified Medical Emergency: Emergent Condition: Fair Referrals and Follow-Ups: Maame Hinson MD [Primary Care Provider] - - Critical Care Note This patient required my direct & personal management of CC.: No Attestation - Physician/ ANG Attestation Patient care was provided by Advanced Practice Provider:: No The physician spent face to face time with patient:: Yes Advanced Practice Provider documentation review:: Supervising physician onsite and consulted in the evaluation and care of this patient. The physician did have a face to face encounter with the patient. Sepsis: Tissue Perfusion Assmt - Physical Exam Assessment Date: 02/13/19 Time Assessment Initialized: 04:19 Vital Signs: Last Vital Signs Temp 98.5 F 02/13/19 03:06 Pulse 126 H 02/13/19 03:06 Resp 18 02/13/19 03:06 BP 152/96 02/13/19 03:06 Pulse Ox 90 L 02/13/19 04:00 Height 5 ft 3 in Weight 104.326 kg 02/13/19 04:19 See chart Lung Sounds:: lungs clear Heart Sounds:: Regular Capillary Refill Time: Less Than 2 Seconds Peripheral Pulse Evaluation:: radial (R): 4+, radial (L): 4+, dorsalis-pedis (R): 4+, dorsalis-pedis (L): 4+ Skin Exam:: flushed - Impression Impression:: Tissue Perfusion Adequate - Plan Plan:: See Orders
[2019-02-13 02:50] LABS: BASO# 0.02 X1000 (0.0-0.2); BASO% 0.1 % (0.0-0.8); HEMATOCRIT 46.3 % (37.0-47.0); HEMOGLOBIN 15.4 g/dL (12.0-16.0); IMM GRAN# 0.08 X1000 (0.0-0.04); IMM GRAN% 0.4 % (0.0-0.5); LYMPH# 0.57 X1000 (1.2-3.4); LYMPH% 2.6 % (20.5-51.1); MCHC 33.3 g/dL (33-37); MCV 84.2 FL (81-99); MONO# 0.12 X1000 (0.11-0.59); MONO% 0.5 % (1.7-9.3); MPV 11.5 FL (7.4-10.4); NEUT# 21.35 X1000 (1.4-6.5); NEUT% 96.4 % (42.2-75.2); PLT 309 X1000 (130-400); RDW 14.2 % (11.5-14.5); WBC 22.14 X1000 (4.8-10.8)
[2019-02-13 03:18] LABS: URINE SOURCE CLEAN CATCH
[2019-02-13] MEDS ORDERED: ZOSYN 3.375 GM in NS 50 ML IV ONE (03:18)
[2019-02-13 03:20] LABS: BILIRUBIN URINE NEGATIVE (NEGATIVE); BLOOD URINE LARGE (NEGATIVE); COLOR STRAW; GLUCOSE URINE >1000 mg/dL (NEGATIVE); KETONE URINE TRACE mg/dL (NEGATIVE); LEUKOCYTES URINE TRACE (NEGATIVE); NITRITE URINE NEGATIVE (NEGATIVE); PROTEIN URINE TRACE mg/dL (NEGATIVE); SP GRAVITY URINE 1.022; TURBIDITY URINE CLEAR (CLEAR); UROBILINOGEN URINE NORMAL (NORMAL)
[2019-02-13 03:21] LABS: ALB/GLOB RATIO 1.1; ALBUMIN 3.6 g/dL (3.5-5.0); CALCIUM 9.3 mg/dL (8.8-10.2); INR 1.24; POTASSIUM 3.7 mmol/L (3.5-5.1); PROTIME 15.8 Seconds (11.0-16.0); PTT 27.8 Seconds (22.3-41.8); TOTAL BILIRUBIN 0.73 mg/dL (0.20-1.00); TOTAL PROTEIN 6.8 g/dL (6.3-8.3)
[2019-02-13 03:21] LABS: UR EPITHELIAL CELLS <10 /HPF (<10); URINE BACTERIA 1+ /HPF; URINE RBC TNTC /HPF (<10); URINE WBC 20-40 /HPF (<10)
[2019-02-13] MEDS ORDERED: HUMULIN R IV ONE (04:27)
[2019-02-13] MEDS ORDERED: NS 250 ML IV ONE ×2 (04:28→04:30)
[2019-02-13] MEDS ORDERED: DILAUDID IV ONE (05:15)
--- NOTE | 2019-02-13 06:49 | Diag Imaging Result Doc PS360 ---
CT ABD/PELVIS W/IV CONT ONLY - 02/13/2019 INDICATION: abdo pain, sepsis COMPARISON: 01/31/2019 FINDINGS: The lung bases are clear and the heart size is normal. There is stable fatty change of the liver. The gallbladder, pancreas, spleen, adrenals, and kidneys are normal. There is some wall thickening of the sigmoid colon in a region of numerous diverticula. There is a very small air-fluid collection the left pelvic side wall in this region. This measures 2.4 cm. No free air or free fluid. Urinary bladder, uterus, and rectum are normal. Stable implanted device in the right pelvis. Stable surgical changes to the lumbar spine. No acute bony lesions. IMPRESSION: Acute diverticulitis of the sigmoid colon. Very small adjacent abscess at the left pelvic sidewall. This exam was performed using automated exposure control, adjustment of mA or kV according to patient size, and/or use of iterative reconstruction technique Electronically signed by Vikram Herman 02/13/2019 6:47 AM
--- NOTE | 2019-02-13 06:53 | Diag Imaging Result Doc PS360 ---
CHEST-1 VIEW - 02/13/2019 INDICATION: possible sepsis COMPARISON: 02/03/2019 FINDINGS: The lungs are normally expanded and clear. Heart size and mediastinal contours are normal. No pneumothorax or pleural effusion. Stable calcified granuloma in the left lung base. IMPRESSION: Negative exam. Electronically signed by Vikram Herman 02/13/2019 6:51 AM
--- NOTE | 2019-02-13 07:08 | EKG Report ---
Test Performed on : 02/13/2019 02:22:26 AM Test Reason : UTI Blood Pressure : / mmHG Vent. Rate : 136 BPM Atrial Rate : 136 BPM P-R Int : 124 ms QRS Dur : 074 ms QT Int : 292 ms P-R-T Axes : 072 -02 085 degrees QTc Int : 439 ms Sinus tachycardia. with occasional premature ventricular complexes. Nonspecific ST abnormality Abnormal ECG When compared with ECG of 03-FEB-2019 06:53, (Unconfirmed) premature ventricular complexes. are now present Vent. rate has increased BY [address] now depressed in Lateral leads Nonspecific T wave abnormality no longer evident in Inferior leads Unconfirmed Result
[2019-02-13] MEDS ORDERED: ROCEPHIN 1 GM in NS 50 ML IV SCH (08:00)
[2019-02-13] MEDS ORDERED: FLAGYL 500 MG/NS 500 MG/100 ML IVPB IV SCH (08:00)
[2019-02-13 08:58] LABS: AGAP 16; ALB/GLOB RATIO 0.9; ALBUMIN 2.9 g/dL (3.5-5.0); ALKALINE PHOSPHATASE 96 U/L (32-104); BUN 10 mg/dL (8-22); CALCIUM 8.2 mg/dL (8.8-10.2); CHLORIDE 95 mmol/L (98-107); COSMO 276; CREATININE 0.9 mg/dL (0.5-0.9); ESTIMATED GFR > 60; GLUCOSE 323 mg/dL (70-104); GOT 31 U/L (10-30); GPT 33 U/L (10-36); MAGNESIUM 1.6 mg/dL (1.5-2.7); PHOSPHORUS 3.3 mg/dL (2.7-4.5); POTASSIUM 3.7 mmol/L (3.5-5.1); SODIUM 132 mmol/L (136-145); TCO2 21 mmol/L (25-35); TOTAL BILIRUBIN 0.65 mg/dL (0.20-1.00); TOTAL PROTEIN 6.1 g/dL (6.3-8.3)
[2019-02-13] MEDS: DIFLUCAN 100 MG/NS 100 MG/50 ML IVPB IV SCH (09:46)
[2019-02-13] MEDS ORDERED: SODIUM CHLORIDE 0.9% INJ SCH (10:17)
[2019-02-13] MEDS: PROTONIX IV SCH (10:35)
[2019-02-13] MEDS: DILAUDID IV PRN ×4 (10:40→22:59)
[2019-02-13] MEDS ORDERED: HUMALOG SUBQ SCH (11:00)
[2019-02-13] MEDS: ZOSYN 3.375 GM in NS 50 ML IV SCH ×2 (11:10→16:05)
[2019-02-13] MEDS: ZOFRAN IV PRN ×2 (12:45→21:16)
[2019-02-13] MEDS: HUMALOG SUBQ SCH ×3 (12:45→21:16)
--- NOTE | 2019-02-13 13:07 | GENERAL SURGERY CONSULTATION ---
DATE: 02/13/2019 HISTORY OF PRESENT ILLNESS: She is a pleasant, 58-year-old, who has really been sick for about 5 weeks. Last week, she seemed to worsen, contacted Dr. Hinson's office. He tried Levaquin on her as an outpatient. She could not take it. She got worse, came to the hospital Wednesday, was admitted overnight, and got apparently an IV antibiotic, was discharged again, and then simply was worse today, and came back in this morning because she has had a fever and a chill last night. PAST MEDICAL HISTORY: Chronic low back pain, for which she really has had a pain pump for 15 years. She also has a history of hypertension, hyperlipidemia, possible myocardial infarction in the past. She reports some diabetes and thyroid disorders as well. PAST SURGICAL HISTORY: Previous surgery includes tubal ligation, back surgery multiple times. HOME MEDICATIONS: Include Januvia 100 mg daily, Jardiance 25 mg daily, aspirin 81 mg daily, Lipitor 20 mg daily, she was sent on Cipro at home, duloxetine 60 mg daily, vitamin D2 at 1.25 mg p.o. b.i.d., Synthroid 137 mcg every other day alternating with 150 mcg, losartan 50 mg daily, multivitamins 1 daily, Protonix 40 mg daily, and pramipexole 0.5 mg daily. ALLERGIES: She is allergic to codeine, which causes hives. SOCIAL HISTORY: Denies alcohol or tobacco usage. FAMILY HISTORY: Pertinent for coronary artery disease. PHYSICAL EXAMINATION: Vital Signs: She is afebrile, heart rate 105, respiratory rate 18, blood pressure 144/74. Neck: No cervical adenopathy. No carotid bruits. Lungs: Bilateral breath sounds. Heart: Regular rate and rhythm. Abdomen: Soft. Pain pump was noted on the right. She is mildly tender in the lower abdomen just to the left of the midline. Extremities: No peripheral edema. Neurologic: She is awake and alert. IMAGING AND LABORATORY DATA: White count was noted to be 22,000, hemoglobin 15.4, hematocrit is 46.3, glucose 323. CT scan shows some acute diverticulitis with a small abscess by the pelvic wall. PLAN: The plan will be to treat her with IV antibiotic therapy in hopes that we can get her prepared for a bowel prep and possible resection electively. We would like to avoid any immediate intervention which would necessitate a colostomy. I will follow along. cc: Cristo Sanchez MD
[2019-02-13] MEDS: ZYVOX 600 MG/D5W 600 MG/300 ML IVPB IV SCH (13:54)
--- NOTE | 2019-02-13 14:58 | HISTORY AND PHYSICAL ---
ADDENDUM: Patient seen and examined by me [id number]. All the laboratory, vital signs, and images were reviewed. The patient was recently discharged on 02/03/2019, and I checked her blood culture at that time from 01/31/2019 and it showed Staphylococcus epidermidis. A new set of blood cultures were repeated on 02/03/2019, and they have been negative. She was discharged on levofloxacin, but she could not tolerate that. Then, her primary care doctor gave her an oral medication, but she could not also tolerate this medication. Now, she is coming back, and we did a CT scan that showed acute diverticulitis of the sigmoid colon, and very small adjacent abscess of the left pelvic sidewall. Surgery Department has evaluated this patient. She has been placed on a liquid diet. We will monitor this patient closely. Continue with antibiotics. I will add Zyvox. I agree with the rest of the nurse practitioner's assessment and plan. cc: Janes Leigh MD
--- NOTE | 2019-02-13 15:19 | HISTORY AND PHYSICAL ---
CHIEF COMPLAINT: UTI, suprapubic pain. HISTORY OF PRESENT ILLNESS: This is a 58-year-old female with a history of hypertension, diabetes mellitus, hypothyroid, and chronic pain. She presented to the emergency room with her complaining of abdominal pain, elevated blood sugar, chest pain, and a UTI. Ms. Orellana presented to the emergency room on January 31, complaining of low abdominal pain and chest pain. Blood cultures were obtained at this visit. One culture was initially reported out as gram-positive cocci. Therefore, she was called on the and informed she need to come back to the emergency room for IV antibiotics. This ultimately grew out coagulase-negative staph and she was discharged on February 03 . At this time, both bottles were growing gram- positive cocci. Blood cultures finalized as Staphylococcus epidermidis which was favored to be a contaminant. During this time she complained of urinary tract infection symptoms and malaise. She had been started on Levaquin prior to presenting to the emergency room for a UTI by her primary care physician and she was discharged home with instructions to continue this. The patient reports today that she was unable to tolerate the Levaquin. After informing her primary care physician of this she states he gave her Bactrim which she was unable to take, so "I just gave up and did not take any antibiotics." She returned to the emergency room complaining of progressive fatigue with chest pain, abdominal pain, and dysuria. She was found to have a white count of 22, blood sugars that were in the 270 to 340 range, elevated LFTs, and a lactate of 4. Blood cultures and urine culture were obtained. She was given Zosyn in the emergency room and admitted for further evaluation and treatment. PAST MEDICAL HISTORY: 1. Hypertension. 2. Chronic back pain with a morphine pump. 3. Hypothyroid. 4. Diabetes mellitus. 5. Obesity. 6. Restless leg syndrome. 7. History of takotsubo cardiomyopathy with an EF of 25% in 2017 and an EF of 70% in April of 2018. PAST SURGICAL HISTORY: Multiple back surgeries, tubal ligation, and implantation of a pain pump. SOCIAL HISTORY: She denies alcohol, tobacco, or illicit drug use. ALLERGIES: Codeine. SOCIAL HISTORY: She denies alcohol, tobacco, or illicit drug use. FAMILY HISTORY: Her mother had coronary artery disease, passing away at the age of 48 with an IA and her father at age 62 from an IA. REVIEW OF SYSTEMS: Discussed with patient with pertinent positives stated in the HPI. She denied any syncope or dizziness, any palpitations, any fevers or chills, a productive cough, PND, orthopnea, any nausea, vomiting, diarrhea, constipation, black or bloody vomitus or stools, any hematuria. PHYSICAL EXAMINATION: GENERAL: This is a 58-year-old female who is sitting up on the stretcher in the emergency room in no distress. VITAL SIGNS: Blood pressure is 130/70, with a heart rate of 100, respirations are 20, temperature is 98.4 degrees oral, with room air saturations that are 98%. EYES: Pupils equal, round, react to light. EOMs are intact. Sclerae are anicteric. HENT: Head is normocephalic, atraumatic. Mucous membranes are moist. NECK: Supple with trachea midline. CARDIOVASCULAR: Regular rate and rhythm. S1 and S2 appreciated. She has no lower extremity edema. Calves are nontender bilateral with peripheral pulses palpable x4 extremities. PULMONARY: Breath sounds are clear with no increased work of breathing noted. Chest rises and falls symmetrically with respiration. Chest wall is nontender to palpation. GASTROINTESTINAL: Abdomen is soft, nontender, nondistended, with bowel sounds in all 4 quadrants. GENITOURINARY: She has no CVA tenderness. She has positive suprapubic tenderness. NEUROLOGIC: She is alert and oriented x3. SKIN: Warm and dry. LABS: WBC is 22.1, with hemoglobin 15.4, hematocrit 46.3, platelets 309,000. INR is 1.24. Sodium 132, potassium 3.7, BUN 12, creatinine 1, with a glucose of 340. Blood sugars range from 274 to 340. AST 41, ALT 39, and alkaline phosphatase 189. Lactate is 4. Blood cultures and urine culture are pending. Chest x-ray revealed negative exam. CT of the abdomen and pelvis revealed acute diverticulitis of the sigmoid colon with a very small adjacent abscess at the left pelvic sidewall measuring 2.4 cm. There is no free air or free fluid. ASSESSMENT AND PLAN: 1. Acute diverticulitis. 2. A 2.4 cm pelvic wall abscess. 3. Leukocytosis. 4. Hyponatremia. 5. Diabetes mellitus type 2 with hyperglycemia. 6. Hypokalemia. 7. Sepsis. 8. Urinary tract infection with a positive urine culture of yeast on 02/03/2019. 9. Chronic pain with an implanted morphine pump. 10. Hypothyroid. 11. History of takotsubo cardiomyopathy. PLAN: The patient will be admitted to PVC unit. She will be placed on telemetry. We will have her n.p.o. until she is evaluated by Dr. Sanchez, General Surgery. We will continue with IV hydration, antibiotic coverage of Zosyn, q.4 hours blood sugars with sliding scale insulin. We will consult Dr. Sanchez, General Surgery. Check a CBC and CMP in the morning. Start fluconazole for yeast urinary tract infection. We will identify her home medications and continue as appropriate. We will give Dilaudid 0.5 mg IV q.4 hours p.r.n. I did discuss with the patient that in light of her having an implanted morphine pain pump that we will give no further pain medication as we do not want to depress her respiratory system. Plan was discussed with Dr. Alejandra. Further treatments pending hospital course. We will get an echocardiogram. We will check an acetone to assure she is not in DKA. Dictated by SUDHAKAR Floyd for Janes Leigh MD cc: SUDHAKAR Floyd MD [facility]
[2019-02-13] MEDS: TYLENOL PO PRN ×2 (16:32→23:08)
[2019-02-14] MEDS: ZOSYN 3.375 GM in NS 50 ML IV SCH ×4 (00:18→18:06)
[2019-02-14] MEDS: HUMALOG SUBQ SCH ×6 (00:18→21:02)
[2019-02-14] MEDS: ZYVOX 600 MG/D5W 600 MG/300 ML IVPB IV SCH ×2 (00:21→12:26)
[2019-02-14] MEDS: DILAUDID IV PRN ×4 (03:20→21:02)
[2019-02-14] MEDS: TYLENOL PO PRN ×3 (06:23→18:16)
[2019-02-14 06:37] LABS: BASO# 0.02 X1000 (0.0-0.2); BASO% 0.2 % (0.0-0.8); EOS# 0.19 X1000 (0.0-0.7); EOS% 1.4 % (0.0-10.0); HEMATOCRIT 42.7 % (37.0-47.0); HEMOGLOBIN 13.7 g/dL (12.0-16.0); IMM GRAN# 0.02 X1000 (0.0-0.04); IMM GRAN% 0.2 % (0.0-0.5); LYMPH# 1.36 X1000 (1.2-3.4); LYMPH% 10.3 % (20.5-51.1); MCHC 32.1 g/dL (33-37); MCV 87.1 FL (81-99); MONO# 0.55 X1000 (0.11-0.59); MONO% 4.2 % (1.7-9.3); MPV 11.7 FL (7.4-10.4); NEUT% 83.7 % (42.2-75.2); PLT 233 X1000 (130-400); RDW 14.3 % (11.5-14.5); WBC 13.24 X1000 (4.8-10.8)
[2019-02-14 06:53] LABS: HEMOGLOBIN A1C 8.7 % (4.8-6.0)
[2019-02-14 07:12] LABS: AGAP 12; ALB/GLOB RATIO 1.2; ALBUMIN 3.2 g/dL (3.5-5.0); ALKALINE PHOSPHATASE 88 U/L (32-104); BUN 11 mg/dL (8-22); CALCIUM 8.4 mg/dL (8.8-10.2); CHLORIDE 100 mmol/L (98-107); COSMO 277; CREATININE 0.9 mg/dL (0.5-0.9); ESTIMATED GFR > 60; GLUCOSE 230 mg/dL (70-104); GOT 35 U/L (10-30); GPT 36 U/L (10-36); POTASSIUM 3.5 mmol/L (3.5-5.1); SODIUM 135 mmol/L (136-145); TCO2 23 mmol/L (25-35); TOTAL BILIRUBIN 0.37 mg/dL (0.20-1.00); TOTAL PROTEIN 5.9 g/dL (6.3-8.3)
[2019-02-14] MEDS: PROTONIX IV SCH (08:24)
[2019-02-14] MEDS: DIFLUCAN 100 MG/NS 100 MG/50 ML IVPB IV SCH (09:37)
[2019-02-14] MEDS: ZOFRAN IV PRN (11:33)
--- NOTE | 2019-02-14 15:55 | PROGRESS NOTE ---
DATE: 02/14/2019 SUBJECTIVE: This patient is significantly better. She has some mild abdominal pain/discomfort. She is hungry. I will advance her diet to a full liquid diet. I will continue with antibiotics. WBC trending down. Surgery Department on board. For now we will continue with medical management. OBJECTIVE: Vital Signs: Temperature 98.2 degrees, pulse 78, respiratory rate 16, blood pressure 140/77, oxygen saturation 97% on room air. HEENT: Head normocephalic, no trauma. PERRLA. Neck: Supple. No JVD. No masses. Central trachea. Chest: Clear to auscultation. No wheezing. No rales. Abdomen: Soft. Some tenderness to palpation at the level of the lower abdomen. No signs of peritoneal irritation. Positive bowel sounds. Extremities: No edema, no clubbing, no cyanosis. Neurological: The patient is alert, awake and oriented x3. No focal deficits. LABORATORY: WBC 13.2, hemoglobin 13.7, platelets 233,000. Sodium 135, potassium 3.5, chloride 100, bicarbonate 23, BUN 11, creatinine 0.9, glucose 230. Calcium 8.4, AST 35, ALT 36, alkaline phosphatase 88, albumin 32. ASSESSMENT AND PLAN: 1. Sepsis due to diverticulitis with a 2.4 cm pelvic wall abscess. This patient has been placed on antibiotics. Continue with the same management. She is feeling much better. She is tolerating p.o. I will advance the diet to a full liquid diet to see how she does. 2. Hyponatremia, better compared with yesterday. Continue with IV fluids. 3. Mild acute kidney injury, resolved. 4. Type 2 diabetes with hyperglycemia. Hemoglobin A1c is 8.7. As per the patient, it used to be more than 10. I will continue with same management for now and probably tomorrow we will start this patient on her medications. She has been placed on Januvia and Jardiance. Since this patient is basically eating just a clear diet/full liquid diet, I will start with those medications in the morning and monitor. 5. Hypokalemia, resolved. 6. Likely urinary tract infection with possible urine culture of yeast on 02/03/2019. 7. Chronic pain with an implanted morphine pump, aware. 8. Hypothyroidism. Continue with same management. 9. History of takotsubo cardiomyopathy, aware. cc: Janes Leigh MD
--- NOTE | 2019-02-14 16:16 | GENERAL SURGERY PROGRESS NOTE ---
DATE: 02/14/2019 Ms. Orellana Feels better, she even feels like getting up. She is afebrile with stable hemodynamics. Her white count has fallen to 13,000. The plan will be to continue antibiotic therapy. I will re-scan her on , February 16, and then we will consider her for operative intervention on Wednesday, that being a sigmoid resection with drainage of the abscess and reanastomosis if possible. cc: Cristo Sanchez MD
[2019-02-15] MEDS: ZOFRAN IV PRN ×2 (00:02→18:16)
[2019-02-15] MEDS: HUMALOG SUBQ SCH ×6 (00:10→21:16)
[2019-02-15] MEDS: ZOSYN 3.375 GM in NS 50 ML IV SCH ×5 (00:10→23:08)
[2019-02-15] MEDS: ZYVOX 600 MG/D5W 600 MG/300 ML IVPB IV SCH ×2 (00:10→12:16)
[2019-02-15] MEDS: DILAUDID IV PRN ×5 (02:39→19:37)
[2019-02-15] MEDS: IMODIUM PO PRN ×3 (05:10→10:33)
[2019-02-15] MEDS: TYLENOL PO PRN ×2 (05:56→14:05)
[2019-02-15 08:18] LABS: BASO# 0.04 X1000 (0.0-0.2); BASO% 0.4 % (0.0-0.8); EOS# 0.29 X1000 (0.0-0.7); HEMATOCRIT 44.1 % (37.0-47.0); HEMOGLOBIN 14.4 g/dL (12.0-16.0); LYMPH# 3.09 X1000 (1.2-3.4); LYMPH% 31.8 % (20.5-51.1); MCH 28.3 PG (27-31); MCHC 32.7 g/dL (33-37); MCV 86.6 FL (81-99); MONO# 0.54 X1000 (0.11-0.59); MONO% 5.6 % (1.7-9.3); MPV 11.5 FL (7.4-10.4); NEUT# 5.76 X1000 (1.4-6.5); NEUT% 59.2 % (42.2-75.2); PLT 256 X1000 (130-400); RBC 5.09 XMIL (4.2-5.4); RDW 14.1 % (11.5-14.5); WBC 9.72 X1000 (4.8-10.8)
[2019-02-15] MEDS: DIFLUCAN 100 MG/NS 100 MG/50 ML IVPB IV SCH (08:28)
[2019-02-15] MEDS: PROTONIX IV SCH (08:29)
[2019-02-15] MEDS: JANUVIA PO SCH (08:31)
[2019-02-15 08:42] LABS: AGAP 10; BUN 7 mg/dL (8-22); CALCIUM 8.8 mg/dL (8.8-10.2); CHLORIDE 99 mmol/L (98-107); COSMO 271; CREATININE 0.8 mg/dL (0.5-0.9); ESTIMATED GFR > 60; GLUCOSE 218 mg/dL (70-104); POTASSIUM 3.7 mmol/L (3.5-5.1); SODIUM 133 mmol/L (136-145); TCO2 24 mmol/L (25-35)
[2019-02-15] MEDS: CULTURELLE PO SCH ×2 (09:04→21:03)
--- NOTE | 2019-02-15 09:20 | PROGRESS NOTE ---
DATE: 02/15/2019 SUBJECTIVE: This patient is better. She is still complaining of some abdominal discomfort at the level of the lower abdomen. No signs of peritoneal irritation. I will continue with a full liquid diet. I will continue with antibiotics. White blood cell count normalized. Surgery department on board. Probably we are going to repeat some images tomorrow to see the abscess evolution. We will monitor. OBJECTIVE: Vital Signs: Temperature 97.9 degrees, pulse 77, respiratory rate 16, blood pressure 178/89, oxygen saturation 99 on room air. HEENT: Head normocephalic. No trauma. PERRLA. Neck: Supple. No JVD. No masses. Central trachea. Chest: Clear to auscultation. No wheezing. No rales. Abdomen: Soft. Some tenderness to palpation at the level of the lower abdomen. No signs of peritoneal irritation. Positive bowel sounds. Extremities: No edema. No clubbing. No cyanosis. Neurological: The patient is alert, awake, and oriented x3. No focal deficits. LABORATORY: WBC 9.7, hemoglobin 14.4, hematocrit 44.1, platelets 256,000. Glucose 191. Pending BMP. ASSESSMENT AND PLAN: 1. Sepsis due to diverticulitis with a 2.4 cm pelvic wall abscess. This patient has been placed on antibiotics. White blood cell count normalized. She is feeling much better. She is tolerating p.o. Probably she will get some images done tomorrow to evaluate the abscess again. Surgery on board. 2. Hyponatremia. Pending lab work. Getting better. 3. Mild acute kidney injury. Resolved. 4. Type 2 diabetes with hyperglycemia. Hemoglobin A1c is 8.7. As per the patient, it used to be higher than that, around 10 or more. I will continue with same management for now. I have started this patient back on her medications. 5. Hypokalemia. Resolved, but pending new lab work. 6. Likely urinary tract infection with urine showing yeast. Continue with the same management. 7. Chronic pain with an implanted morphine pump, aware. 8. Hypothyroidism. Continue with same management. 9. History of takotsubo cardiomyopathy, aware. No chest pain or shortness of breath at this moment. 10. Diarrhea. Clostridium difficile colitis is negative. I will continue with the same management. We will add probiotics as well. She is getting Imodium as needed. We will monitor for now. cc: Janes Leigh MD
[2019-02-15] MEDS: JARDIANCE PO SCH (09:49)
--- NOTE | 2019-02-15 10:09 | GENERAL SURGERY PROGRESS NOTE ---
DATE: 02/15/2019 SUBJECTIVE: She is sitting up. She feels much better. She is afebrile. Heart rate 77, blood pressure 178/89. She is really minimally tender. White count is down to 9700. PLAN: To continue antibiotic therapy. We will get a CAT scan of abdomen and pelvis in the morning of the , and then decide about intervention after that. The options being bowel prep and then sigmoid resection on Wednesday versus no intervention at all and continued antibiotic therapy at home. cc: Cristo Sanchez MD
[2019-02-16] MEDS: DILAUDID IV PRN ×6 (00:36→23:22)
[2019-02-16] MEDS: ZOFRAN IV PRN ×3 (00:36→18:59)
[2019-02-16] MEDS: ZYVOX 600 MG/D5W 600 MG/300 ML IVPB IV SCH ×2 (00:37→13:26)
[2019-02-16] MEDS: HUMALOG SUBQ SCH ×6 (00:37→21:14)
[2019-02-16] MEDS: IMODIUM PO PRN ×3 (05:35→18:48)
[2019-02-16] MEDS: ZOSYN 3.375 GM in NS 50 ML IV SCH ×4 (05:35→23:22)
[2019-02-16 07:04] LABS: BASO# 0.04 X1000 (0.0-0.2); BASO% 0.4 % (0.0-0.8); EOS# 0.27 X1000 (0.0-0.7); EOS% 2.9 % (0.0-10.0); HEMATOCRIT 42.8 % (37.0-47.0); HEMOGLOBIN 13.8 g/dL (12.0-16.0); IMM GRAN# 0.02 X1000 (0.0-0.04); IMM GRAN% 0.2 % (0.0-0.5); LYMPH# 2.46 X1000 (1.2-3.4); LYMPH% 26.4 % (20.5-51.1); MCH 27.8 PG (27-31); MCHC 32.2 g/dL (33-37); MCV 86.1 FL (81-99); MONO# 0.55 X1000 (0.11-0.59); MONO% 5.9 % (1.7-9.3); MPV 11.7 FL (7.4-10.4); NEUT# 5.98 X1000 (1.4-6.5); NEUT% 64.2 % (42.2-75.2); PLT 255 X1000 (130-400); RBC 4.97 XMIL (4.2-5.4); WBC 9.32 X1000 (4.8-10.8)
[2019-02-16 07:20] LABS: AGAP 19; BUN 7 mg/dL (8-22); CHLORIDE 99 mmol/L (98-107); COSMO 279; CREATININE 0.8 mg/dL (0.5-0.9); ESTIMATED GFR > 60; GLUCOSE 153 mg/dL (70-104); POTASSIUM 3.6 mmol/L (3.5-5.1); SODIUM 139 mmol/L (136-145); TCO2 21 mmol/L (25-35)
[2019-02-16] MEDS: PROTONIX IV SCH (10:31)
--- NOTE | 2019-02-16 11:15 | Diag Imaging Result Doc PS360 ---
EXAM: CT ABD/PELVIS W/PO AND IV CON HISTORY: evaluate diverticular abscess TECHNIQUE: CT abdomen and pelvis with intravenous and oral contrast COMPARISON: 02/13/2019 FINDINGS: There is pronounced fatty infiltration of the liver. The gallbladder is distended. No calcified stones or adjacent inflammation. Normal spleen and adrenal glands. No inflammation about the pancreas. Normal enhancement of the kidneys. No hydronephrosis. No aortic aneurysm. No bowel obstruction. There are scattered colonic diverticula. Interval decrease in the size of the small abscess adjacent to the proximal sigmoid colon. This measures approximately 1.8 x 2.2 x 2.5 cm on the current exam. Previously this measured approximately 2.7 x 3.4 x 3.5 cm. The urinary bladder is moderately distended and is normal. Normal uterus. IMPRESSION: Interval improvement with decrease in the size of the small abscess adjacent to the sigmoid colon. This exam was performed using automated exposure control, adjustment of mA or kV according to patient size, and/or use of iterative reconstruction technique. Electronically signed by Cheng Matthew 02/16/2019 11:13 AM
[2019-02-16] MEDS: DIFLUCAN 100 MG/NS 100 MG/50 ML IVPB IV SCH (11:28)
[2019-02-16] MEDS: CULTURELLE PO SCH ×2 (13:26→21:14)
[2019-02-16] MEDS: JARDIANCE PO SCH (13:26)
[2019-02-16] MEDS: JANUVIA PO SCH (13:26)
--- NOTE | 2019-02-16 14:16 | PROGRESS NOTE ---
DATE: 02/16/2019 SUBJECTIVE: The patient is feeling better, her abdominal pain is much better. She is tolerating p.o. without any problems. No nausea, no vomiting. We did a new abdomen and pelvis CT scan that showed an interval improvement with decrease in size of the small abscess adjacent to the sigmoid colon, pending Surgery Department evaluation and recommendations. OBJECTIVE: Vital Signs: Temperature 98.3 degrees, pulse 90, respiratory rate 16, blood pressure 144/89, oxygen saturation 97% on room air. HEENT: Head normocephalic, no trauma. PERRLA. Neck: Supple. No JVD. No masses. Central trachea. Chest: Clear to auscultation. No wheezing. No rales. Abdomen: Soft, nontender, nondistended. No hepatosplenomegaly. Extremities: No clubbing, no cyanosis. Neurological: The patient is alert, awake and oriented x3. No focal deficits. LABORATORY: WBC 9.3, hemoglobin 13.8, hematocrit 42.8, platelets 255,000. Sodium 139, potassium 3.6, chloride 99, bicarbonate 21, BUN 7, creatinine 0.8, glucose 153, calcium 9. ASSESSMENT AND PLAN: 1. Sepsis due to diverticulitis with a small pelvic wall abscess, CT scan of the abdomen and pelvis showed an interval improvement of that abscess and actually smaller, I will wait for Surgery Department evaluation and recommendations. 2. Hyponatremia. Resolved. 3. Mild acute kidney injury. Resolved. 4. Type 2 diabetes with hyperglycemia. Hemoglobin A1c 8.7, but as per the patient, it has been more than 10 recently, we will continue to monitor. Stable. 5. Hypokalemia, resolved. 6. Likely urinary tract infection with urine showing yeast, continue with same treatment. 7. Chronic pain with an implanted morphine pump. Aware. 8. Hypothyroidism. Continue with same management. 9. History of takotsubo cardiomyopathy, aware. No chest pain at this moment. 10. Diarrhea, Clostridium difficile toxin and antigen are negative. Diarrhea is better. Continue with same management. 11. Disposition. I will wait for Surgery Department to evaluate this patient and recommend final management. cc: Janes Leigh MD
--- NOTE | 2019-02-16 19:52 | GENERAL SURGERY PROGRESS NOTE ---
DATE: 02/16/2019 Ms. Orellana continues improved. She is afebrile. White count is normal. CT scan shows significant improvement, even decrease in the size of the abscess. I think we can treat her conservatively for now and send her home on Cipro and Flagyl to follow up with a repeat scan in a couple of weeks. If at any point she deteriorates, we can proceed with surgery, but at this point, with her improvement and improvement in the CT findings, I think it is safe to send her home on p.o. antibiotics. She agrees with that. cc: Cristo Sanchez MD
[2019-02-17] MEDS: TYLENOL PO PRN (00:42)
[2019-02-17] MEDS: HUMALOG SUBQ SCH ×4 (00:46→11:48)
[2019-02-17] MEDS: ZYVOX 600 MG/D5W 600 MG/300 ML IVPB IV SCH (02:34)
[2019-02-17] MEDS: IMODIUM PO PRN ×2 (03:22→09:35)
[2019-02-17] MEDS: DILAUDID IV PRN ×3 (03:56→12:26)
[2019-02-17] MEDS: ZOSYN 3.375 GM in NS 50 ML IV SCH ×2 (04:47→11:47)
[2019-02-17 07:28] LABS: AGAP 11; BUN 13 mg/dL (8-22); CALCIUM 8.5 mg/dL (8.8-10.2); CHLORIDE 100 mmol/L (98-107); COSMO 278; CREATININE 0.8 mg/dL (0.5-0.9); ESTIMATED GFR > 60; GLUCOSE 179 mg/dL (70-104); POTASSIUM 3.5 mmol/L (3.5-5.1); SODIUM 137 mmol/L (136-145); TCO2 26 mmol/L (25-35)
[2019-02-17] MEDS: JANUVIA PO SCH (08:09)
[2019-02-17] MEDS: CULTURELLE PO SCH (08:09)
[2019-02-17] MEDS: PROTONIX IV SCH (08:10)
[2019-02-17] MEDS: JARDIANCE PO SCH (08:10)
[2019-02-17] MEDS: ZOFRAN IV PRN ×2 (08:10→12:26)
[2019-02-17 11:05] VITALS: BP 153/92
[2019-02-17] MEDS: DIFLUCAN 100 MG/NS 100 MG/50 ML IVPB IV SCH (11:15)
--- NOTE | 2019-02-17 16:56 | DISCHARGE SUMMARY ---
ADMISSION DATE: 02/13/2019 DISCHARGE DATE: 02/17/2019 DISCHARGE DIAGNOSES: 1. Sepsis due to diverticulitis with a small pelvic wall abscess. 2. Hyponatremia, resolved. 3. Mild acute kidney injury, resolved. 4. Type 2 diabetes. 5. Hypokalemia, resolved. 6. Chronic pain with an implanted morphine pump. 7. Hypothyroidism. 8. History of takotsubo cardiomyopathy. PROCEDURES PERFORMED: 1. Chest x-ray dated 02/13/2019--Impression: Negative exam. 2. Abdomen and pelvis CT scan dated 02/13/2019--Impression: Acute diverticulitis of the sigmoid colon, very small adjacent abscess at the left pelvic sidewall measuring 2.4 cm. 3. Abdomen and pelvis CT scan dated 02/16/2019--Impression: Interval improvement and decrease in size of the small abscess adjacent to the sigmoid colon, measuring 1.8 x 2.2 x 2.5 cm, and previously measuring 2.7 x 3.4 x 3.5 cm. CONSULTS: Surgery Department, Dr. Sanchez. HISTORY OF PRESENT ILLNESS: A 58-year-old female with a past medical history of hypertension, diabetes, hypothyroidism and chronic pain, who presented to the emergency department with her complaining of abdominal pain, elevated blood sugar, chest pain. Actually, she also presented on January 31 complaining of low abdominal pain and chest pain. Blood cultures were obtained at that visit and reported initially gram-positive cocci, therefore, she was called on February 02 and informed that she needs to come back to the emergency department for IV antibiotics, but then grew out coagulase-negative Staph and she was discharged on February 03 because of those culture results. At this time, she was started apparently as an outpatient with Levaquin for a possible urinary tract infection by her primary care physician, but she was unable to tolerate Levaquin, so the primary care doctor started this patient on Bactrim, but she was unable to take it, so she just gave up taking medications. She came to the emergency department and was admitted on 02/13/2019 with abdominal pain and some urinary discomfort. She was found to have leukocytosis, hyperglycemia, elevated liver function tests and lactate of 4, CT scan showed acute diverticulitis of the sigmoid colon and a small abscess at the left pelvic sidewall. Surgery Department evaluated this patient. She was placed on IV fluids, antibiotics and bowel rest at the beginning and will advance the diet slowly from clear liquid diet to full liquid diet. She was improving on a daily basis and, actually, we repeated the CT scan that is basically showing that the abscess is decreasing in size and she is significantly better; the white blood cell count actually normalized, the blood sugar is better controlled. Surgery Department evaluated this patient and we have decided to discharge this patient home with p.o. antibiotics, ciprofloxacin and Flagyl. Apparently she is able to tolerate these. At the moment of discharge, this patient was tolerating p.o. and she was not complaining of pain, with vital signs that are stable. OBJECTIVE: Vital Signs: Temperature 98.3 degrees, pulse 78, respiratory rate 18, blood pressure 153/92, oxygen saturation 95% on room air. HEENT: Head normocephalic, no trauma, PERRLA. Neck: Supple. No JVD. No masses. Central trachea. Chest: Clear to auscultation. No wheezing. No rales. Abdomen: Soft, nontender, nondistended. No hepatosplenomegaly. Extremities: No edema, no clubbing, no cyanosis. Neurological: The patient is alert and oriented x3. No focal deficits. LABORATORY DATA: CBC from yesterday, white blood cell count 9.3, hemoglobin 13.8, hematocrit 42.8, platelet 255,000. Sodium 137, potassium 3.5, chloride 100, bicarbonate 26, BUN 13, creatinine 0.8, glucose 179, calcium 8.5. DISCHARGE MEDICATIONS: Acetaminophen 650 mg p.o. every 6 hours as needed for fever, aspirin 81 mg p.o. daily, Lipitor 40 mg p.o. daily, Ciprofloxacin 500 mg p.o. every 12 hours, duloxetine 60 mg p.o. daily, Jardiance 25 mg p.o. daily, vitamin D2 1.25 mg p.o. b.i.d., Culturelle 1 tablet p.o. b.i.d., Synthroid 137 mcg every other day combined with 150 mcg every other day, Losartan 50 mg p.o. daily, Flagyl 500 mg p.o. every 8 hours, Centrum Silver 1 tablet p.o. daily, pantoprazole 40 mg p.o. daily, pramipexole 0.5 mg p.o. at bedtime, and Januvia 100 mg p.o. daily. Time discharging this patient was 25 minutes. cc: Janes Leigh MD
== END 2019-02-17 13:19 | disposition home or self-care (01) ==
LOC: ED 02:10 → 2N 02:11 → 4N 02-15 14:45
PROVIDERS: ATTEND Internal Medicine

== ENCOUNTER 2019-02-23 12:40 | Inpatient (IN) ==
[2019-02-23] MEDS: D5 1/2 NS + KCL 20 MEQ 1,000 ML IV SCH (15:37)
[2019-02-23] MEDS ORDERED: MORPHINE IV PRN (15:59)
[2019-02-23 16:20] LABS: HEMATOCRIT 43.2 % (37.0-47.0); MCH 28.1 PG (27-31); MCHC 32.4 g/dL (33-37); MCV 86.7 FL (81-99); RBC 4.98 XMIL (4.2-5.4); RDW 14.7 % (11.5-14.5); WBC 14.27 X1000 (4.8-10.8)
[2019-02-23 16:33] LABS: AGAP 15; BUN 12 mg/dL (8-22); CALCIUM 9.4 mg/dL (8.8-10.2); CHLORIDE 98 mmol/L (98-107); COSMO 281; CREATININE 0.7 mg/dL (0.5-0.9); ESTIMATED GFR > 60; GLUCOSE 199 mg/dL (70-104); POTASSIUM 3.7 mmol/L (3.5-5.1); SODIUM 138 mmol/L (136-145); TCO2 25 mmol/L (25-35)
[2019-02-23] MEDS: ZOSYN IV SCH ×3 (16:44→23:11)
--- NOTE | 2019-02-23 17:00 | Diag Imaging Result Doc PS360 ---
EXAM: CT ABD/PELVIS W/PO AND IV CON INDICATION: ACUTE SIGMOID DIVERTICULITIS TECHNIQUE: This exam was performed using automated exposure control, adjustment of mA or kV according to patient size, and/or use of iterative reconstruction technique. COMPARISON: 02/16/2019 FINDINGS: There is diffuse mild hepatic steatosis. The gallbladder, spleen, pancreas, adrenal glands, kidneys, and urinary bladder are unremarkable. Extensive sigmoid colonic diverticulosis is again noted. The pericolonic abscess in the pelvis on the left related to ruptured diverticulitis is again identified. It appears larger than the previous study measuring 3.3 x 2.0 cm axially (2.3 x 1.6 cm previously, remeasured). No new inflammatory changes are identified in the abdomen or pelvis, otherwise. The remainder of the GI tract is stable and essentially unremarkable. IMPRESSION: Interval increase in size of the pericolonic abscess in the pelvis on the left. Electronically signed by Judd Alex 02/23/2019 4:58 PM
[2019-02-23] MEDS: PHENERGAN IV PRN (17:05)
[2019-02-23] MEDS: MORPHINE IV PRN ×2 (17:05→20:18)
--- NOTE | 2019-02-23 19:28 | HISTORY AND PHYSICAL ---
HISTORY OF PRESENT ILLNESS: Ms. Em Orellana is a 58-year-old overweight white female, patient of Dr. Maame Hinson, who was just hospitalized at [facility] over the holiday with a complicated acute sigmoid diverticulitis. She had a small abscess along her sigmoid colon. She was treated with IV antibiotics and then sent home on p.o. antibiotics. She presented to Dr. Hinson's office today with increasing abdominal pain. I saw her in our outpatient offices and admitted her for repeat CT scan and IV antibiotics for ongoing complicated sigmoid diverticulitis. PAST MEDICAL HISTORY: 1. She has chronic back pain and has a pain pump, anterior abdominal wall. 2. She has a history of hypertension. 3. Hypothyroidism. 4. Diabetes mellitus. 5. Obesity. 6. Restless leg syndrome. 7. History of cardiomyopathy. PAST SURGICAL HISTORY: 1. Multiple back surgeries. 2. Tubal ligation. 3. Implantation of a pain pump. SOCIAL HISTORY: She does not smoke. Her is at the bedside. ALLERGIES: Codeine. MEDICATIONS: Please see her orders. I wrote her home medicines on her orders. FAMILY HISTORY: Coronary artery disease. REVIEW OF SYSTEMS: A 14-point review of systems was performed and except for this history of diverticulitis, it is negative. PHYSICAL EXAMINATION: GENERAL: On exam, Ms. Em Orellana is an overweight, middle-aged white female. She is in obvious abdominal discomfort, but she is in no acute distress. No jaundice. No oral lesions. Satisfactory dentition. No cervical or supraclavicular lymphadenopathy. HEART: Her heart has a regular rate. LUNGS: Lungs are clear to auscultation and percussion bilaterally. ABDOMEN: It is mostly soft. It is tender in the left lower quadrant and suprapubic area. She has no evidence of hernia. She has left-sided costovertebral tenderness. RECTAL AND VAGINAL: Exams are not performed. EXTREMITIES: She does have palpable femoral pulses. She has no significant peripheral edema. NEUROLOGICAL: She is awake, alert, cooperative, pleasant. No focal deficits. A CT scan showed a slight enlargement of the abscess to about 3.5 cm. I have admitted her and placed her on intravenous antibiotics. Her white blood cell count was slightly elevated. We will keep n.p.o. overnight or start clear liquids, with a plan of prepping her bowels with possible resection later next week. If she improves and wants to go home and us try to do this more electively, will think about that also. cc: Jenny Corado MD
[2019-02-23] MEDS: LIPITOR PO SCH (20:18)
[2019-02-23] MEDS: MIRAPEX PO SCH (20:18)
[2019-02-24] MEDS: PHENERGAN IV PRN ×3 (00:09→21:17)
[2019-02-24] MEDS: MORPHINE IV PRN ×5 (00:09→21:18)
[2019-02-24] MEDS: SODIUM CHLORIDE 0.9% INJ PRN ×3 (00:09→21:17)
[2019-02-24] MEDS: ZOSYN IV SCH (04:05)
[2019-02-24] MEDS: D5 1/2 NS + KCL 20 MEQ 1,000 ML IV SCH (04:06)
[2019-02-24] MEDS: PROTONIX PO SCH (06:18)
[2019-02-24] MEDS: SYNTHROID PO SCH (06:18)
[2019-02-24] MEDS: TYLENOL PO PRN (06:20)
[2019-02-24 06:58] LABS: BASO# 0.03 X1000 (0.0-0.2); BASO% 0.3 % (0.0-0.8); EOS% 0.9 % (0.0-10.0); HEMATOCRIT 41.9 % (37.0-47.0); HEMOGLOBIN 13.4 g/dL (12.0-16.0); IMM GRAN# 0.04 X1000 (0.0-0.04); IMM GRAN% 0.3 % (0.0-0.5); LYMPH# 1.78 X1000 (1.2-3.4); LYMPH% 15.4 % (20.5-51.1); MCH 28.2 PG (27-31); MONO# 0.72 X1000 (0.11-0.59); MONO% 6.2 % (1.7-9.3); MPV 11.2 FL (7.4-10.4); NEUT# 8.86 X1000 (1.4-6.5); NEUT% 76.9 % (42.2-75.2); PLT 297 X1000 (130-400); RBC 4.76 XMIL (4.2-5.4); RDW 14.7 % (11.5-14.5); WBC 11.53 X1000 (4.8-10.8)
[2019-02-24] MEDS: JANUVIA PO SCH (11:37)
[2019-02-24] MEDS: JARDIANCE PO SCH (11:37)
[2019-02-24] MEDS: COZAAR PO SCH (11:37)
[2019-02-24] MEDS: CYMBALTA PO SCH (11:37)
[2019-02-24] MEDS: ZOSYN 3.375 GM in NS 50 ML IV SCH ×3 (11:49→21:24)
--- NOTE | 2019-02-24 19:05 | PROGRESS NOTE ---
DATE: 02/24/2019 SUBJECTIVE: Ms. Em Orellana has been readmitted with ongoing complicated sigmoid diverticulitis. She has an abscess measuring about 3.5 cm. Initially, she was hospitalized over Ha week and was treated with IV antibiotics and sent home on p.o. antibiotics but her symptoms worsened. I readmitted her and she has been on IV antibiotics and clinically she has improved. We are just giving her liquids because we wanted a bowel prep her in case she needed surgery. OBJECTIVE: Her heart rate is 86, blood pressure 153/88, O2 saturation 95%. She is afebrile. He is on IV Zosyn and her white blood cell count has gone from 14 to 11. Hematocrit is 42%. ASSESSMENT/PLAN: Clinically she says she feels better. We will advance her diet to full liquids and continue IV Zosyn. cc: Jenny Corado MD
[2019-02-24] MEDS: LIPITOR PO SCH (21:24)
[2019-02-24] MEDS: MIRAPEX PO SCH (21:24)
[2019-02-25] MEDS: ZOSYN 3.375 GM in NS 50 ML IV SCH ×4 (03:22→21:24)
[2019-02-25] MEDS: SODIUM CHLORIDE 0.9% INJ PRN ×3 (03:22→17:11)
[2019-02-25] MEDS: PHENERGAN IV PRN ×3 (03:22→17:11)
[2019-02-25] MEDS: MORPHINE IV PRN ×3 (03:23→17:11)
[2019-02-25] MEDS: SYNTHROID PO SCH (07:28)
[2019-02-25] MEDS: PROTONIX PO SCH (07:28)
[2019-02-25] MEDS: TYLENOL PO PRN ×2 (08:22→21:24)
[2019-02-25] MEDS: COZAAR PO SCH (10:59)
[2019-02-25] MEDS: JANUVIA PO SCH (10:59)
[2019-02-25] MEDS: CYMBALTA PO SCH (10:59)
[2019-02-25] MEDS: JARDIANCE PO SCH (11:00)
--- NOTE | 2019-02-25 14:42 | GENERAL SURGERY PROGRESS NOTE ---
DATE: 02/25/2019 SUBJECTIVE: The patient is feeling better. No significant abdominal pain, nausea, or vomiting overnight. No fevers or chills. OBJECTIVE: She is afebrile. Vital signs are stable.General: She is awake, alert, oriented x3. No acute distress. Gastrointestinal: Soft, nontender, nondistended. LABORATORY: None today. ASSESSMENT AND PLAN: A 58-year-old female with diverticulitis. She is responding to the IV antibiotics. We will advance her diet to a gastrointestinal soft diet and reassess tomorrow. cc: MD Jenny Perez MD
[2019-02-25] MEDS: LIPITOR PO SCH (21:24)
[2019-02-25] MEDS: MIRAPEX PO SCH (21:24)
[2019-02-26] MEDS: PHENERGAN IV PRN ×4 (00:55→23:44)
[2019-02-26] MEDS: MORPHINE IV PRN ×5 (00:55→21:37)
[2019-02-26] MEDS: SODIUM CHLORIDE 0.9% INJ PRN ×3 (00:56→18:05)
[2019-02-26] MEDS: ZOSYN 3.375 GM in NS 50 ML IV SCH ×4 (04:46→21:37)
[2019-02-26] MEDS: PROTONIX PO SCH ×2 (04:58→06:29)
[2019-02-26] MEDS: SYNTHROID PO SCH ×2 (04:58→06:29)
[2019-02-26] MEDS: JARDIANCE PO SCH (09:27)
[2019-02-26] MEDS: JANUVIA PO SCH (09:27)
[2019-02-26] MEDS: CYMBALTA PO SCH (09:27)
[2019-02-26] MEDS: COZAAR PO SCH (09:27)
--- NOTE | 2019-02-26 10:23 | GENERAL SURGERY PROGRESS NOTE ---
DATE: 02/26/2019 SUBJECTIVE: The patient feels better. No abdominal pain, nausea, or vomiting. She is tolerating her diet. OBJECTIVE: Vital signs: She is afebrile. Vital signs stable. General: She is awake, alert, oriented x3 and in no acute distress. Gastrointestinal: Soft, nontender, nondistended. Labs: None today. ASSESSMENT AND PLAN: This is a 58-year-old female with complicated diverticulitis and recent increase in size of pericolonic abscess. However, symptomatically she has improved on IV antibiotics. Dr. Skinner will re-evaluate her tomorrow. She may need a repeat CT scan to check for resolution of the abscess. We will continue her current care and antibiotics. cc: MD Jenny Perez MD
[2019-02-26] MEDS: MIRAPEX PO SCH (21:37)
[2019-02-26] MEDS: LIPITOR PO SCH (21:37)
[2019-02-27] MEDS: MORPHINE IV PRN ×6 (02:30→22:12)
[2019-02-27] MEDS: SYNTHROID PO SCH ×2 (05:15→07:18)
[2019-02-27] MEDS: PROTONIX PO SCH ×2 (05:15→06:38)
[2019-02-27] MEDS: ZOSYN 3.375 GM in NS 50 ML IV SCH ×4 (05:15→22:12)
[2019-02-27] MEDS: PHENERGAN IV PRN ×3 (05:30→18:53)
[2019-02-27] MEDS: JARDIANCE PO SCH (09:08)
[2019-02-27] MEDS: COZAAR PO SCH (09:08)
[2019-02-27] MEDS: CYMBALTA PO SCH (09:08)
[2019-02-27] MEDS: JANUVIA PO SCH (09:08)
--- NOTE | 2019-02-27 13:20 | PROGRESS NOTE ---
DATE: 02/27/2019 SUBJECTIVE: Ms. Em Orellana is a 58-year-old overweight white female diabetic who has been hospitalized on 2 separate occasions for acute complicated sigmoid diverticulitis with a small abscess measuring about 3.5 cm. She is on hospital day 4, and clinically she has improved. She is on a GI soft diet. She is receiving IV Zosyn. PLAN: We are going to continue IV antibiotics because this is her second hospitalization within 2 weeks for acute sigmoid diverticulitis. She wants to try to a have this resection electively. Her heart rate is 70 8 to 103 blood pressure 151/78, O2 saturation 98%. She is afebrile. cc: Jenny Corado MD
[2019-02-27] MEDS: MIRAPEX PO SCH (22:12)
[2019-02-27] MEDS: LIPITOR PO SCH (22:12)
[2019-02-28] MEDS: MORPHINE IV PRN ×3 (01:27→09:44)
[2019-02-28] MEDS: PHENERGAN IV PRN (01:27)
[2019-02-28] MEDS: SODIUM CHLORIDE 0.9% INJ PRN (01:29)
[2019-02-28] MEDS: ZOSYN 3.375 GM in NS 50 ML IV SCH ×2 (04:24→09:44)
[2019-02-28] MEDS: PROTONIX PO SCH (06:07)
[2019-02-28] MEDS: SYNTHROID PO SCH (06:07)
[2019-02-28] MEDS: JANUVIA PO SCH (08:27)
[2019-02-28] MEDS: JARDIANCE PO SCH (08:27)
[2019-02-28] MEDS: COZAAR PO SCH (08:27)
[2019-02-28] MEDS: CYMBALTA PO SCH (08:27)
[2019-02-28 11:02] VITALS: BP 124/83
--- NOTE | 2019-03-01 09:19 | DISCHARGE SUMMARY ---
ADMISSION DATE: 02/23/2019 DISCHARGE DATE: 02/28/2019 ADMITTING DIAGNOSIS: Acute complicated sigmoid diverticulitis with abscess. DISCHARGE DIAGNOSIS: Acute complicated sigmoid diverticulitis with abscess. PRINCIPLE PROCEDURES: 1. Abdominal and pelvic CT scan on 02/23/2019. 2. IV antibiotics. DISCHARGE DIET: Regular. DISCHARGE DISPOSITION: She will return to our outpatient offices in a week. DISCHARGE DISABILITY: Full. DISCHARGE MEDICATIONS: She is going to get Augmentin extended release 1000 mg 2 tablets p.o. q.12 hours for 10 days. HOSPITAL COURSE: Ms. Em Orellana is an overweight 58-year-old white female who is a diabetic. Initially, she presented during the week mas with this complicated acute sigmoid diverticulitis. She was treated with IV antibiotics, and discharged home on p.o. antibiotics. However her pain persisted, and she saw her primary care physician Dr. Hinson and was sent to our outpatient office for further treatment. I readmitted her. She was then placed again on IV antibiotics because she was hesitant to undergo emergency surgery and an ostomy. She clinically improved during the second hospitalization on IV antibiotics. On hospital day 5, she was discharged ambulating in the room. She had no abdominal pain. It was felt safe to discharge her home under the care of her on p.o. Augmentin extended release 1000 mg 2 tablets p.o. q.12 hours. She will return to my outpatient offices in a week for followup. She knows to contact us with any increasing abdominal pain or fever. cc: MD Maame Olsen MD
== END 2019-02-28 12:06 | disposition home or self-care (01) | DRG 392 ==
LOC: DIRADM 12:40 → 4N 13:08
PROVIDERS: ADMIT Surgery; ATTEND Surgery

== ENCOUNTER 2019-03-22 11:06 | Inpatient (IN) ==
[2019-03-22] MEDS ORDERED: INVANZ 1 GM/NS 1 GM/50 ML IVPB ONE (11:37)
[2019-03-22] MEDS ORDERED: PEPCID ONE (11:37)
[2019-03-22] MEDS ORDERED: LR 1,000 ML ONE (11:37)
[2019-03-22] MEDS ORDERED: ENTEREG ONE (11:38)
[2019-03-22] MEDS ORDERED: DIPRIVAN 1% ONE (11:49)
[2019-03-22] MEDS ORDERED: DEMEROL ONE ×5 (11:50→15:08)
[2019-03-22] MEDS ORDERED: VALIUM ONE (11:50)
[2019-03-22] MEDS ORDERED: XYLOCAINE-MPF 2% ONE (11:50)
[2019-03-22] MEDS ORDERED: ZOFRAN ONE (11:54)
[2019-03-22] MEDS ORDERED: QUELICIN (DOSE) ONE (11:54)
[2019-03-22] MEDS ORDERED: ZEMURON ONE (11:54)
[2019-03-22] MEDS ORDERED: DECADRON ONE (11:54)
[2019-03-22] MEDS ORDERED: OFIRMEV 1000 MG/ISOTONIC SOLN 1,000 MG/100 ML BOTTLE ONE (11:54)
[2019-03-22] MEDS ORDERED: FENTANYL ONE (11:54)
[2019-03-22] MEDS ORDERED: ROBINUL ONE (14:43)
[2019-03-22] MEDS ORDERED: NEOSTIGMINE ONE (14:44)
[2019-03-22] MEDS ORDERED: PHENERGAN ONE ×2 (14:49→15:09)
[2019-03-22] MEDS ORDERED: DILAUDID PCA VIAL ONE (14:50)
[2019-03-22 14:56] LABS: URINE SOURCE CATH
[2019-03-22 15:00] LABS: BILIRUBIN URINE NEGATIVE (NEGATIVE); BLOOD URINE MODERATE (NEGATIVE); COLOR YELLOW; GLUCOSE URINE >1000 mg/dL (NEGATIVE); KETONE URINE 100 mg/dL (NEGATIVE); LEUKOCYTES URINE NEGATIVE (NEGATIVE); NITRITE URINE NEGATIVE (NEGATIVE); PH URINE 5.5; PROTEIN URINE 50 mg/dL (NEGATIVE); SP GRAVITY URINE 1.026; TURBIDITY URINE CLEAR (CLEAR); UROBILINOGEN URINE NORMAL (NORMAL)
[2019-03-22 15:01] LABS: UR EPITHELIAL CELLS <10 /HPF (<10); URINE BACTERIA NEGATIVE /HPF; URINE RBC TNTC /HPF (<10); URINE WBC <10 /HPF (<10)
[2019-03-22] MEDS: DILAUDID ONE ×2 (15:15→15:25)
[2019-03-22] MEDS ORDERED: D50W SYRINGE IV PRN (15:30)
[2019-03-22] MEDS ORDERED: BENADRYL IV PRN (15:45)
[2019-03-22] MEDS ORDERED: NARCAN IV PRN (15:45)
[2019-03-22] MEDS ORDERED: D5 1/2 NS + KCL 20 MEQ 1,000 ML ONE (15:56)
[2019-03-22] MEDS ORDERED: DILAUDID ONE (15:59)
[2019-03-22] MEDS: LR 1,000 ML IV SCH (16:45)
[2019-03-22] MEDS: MOTRIN PO SCH (16:46)
[2019-03-22] MEDS: D5 1/2 NS + KCL 20 MEQ 1,000 ML IV SCH (17:50)
[2019-03-22] MEDS: HUMALOG SUBQ SCH ×2 (17:50→22:11)
--- NOTE | 2019-03-22 17:51 | OPERATIVE NOTE ---
PROCEDURE DATE: 03/22/2019 PREOPERATIVE DIAGNOSIS: Acute sigmoid diverticulitis. POSTOPERATIVE DIAGNOSIS: Acute sigmoid diverticulitis. PRINCIPLE PROCEDURE: Open low anterior colon resection. SURGEON: Dr. Corado. INFORMATICS SPEC: Dr. Esteban Craven. ANESTHESIA: General. ESTIMATED BLOOD LOSS: 150 mL. DRAINS: None. INDICATIONS: Ms. Em Orellaan is an overweight 58-year-old white female who recently has been admitted twice to [facility] with acute complicated sigmoid diverticulitis with a abscess along her sigmoid colon. She has been treated with IV antibiotics but even after 2 weeks of p.o. antibiotics after discharge, she continued to have symptoms. It was clear that antibiotics were not curing her ongoing sigmoid diverticulitis and resection was recommended. FINDINGS: She has a pain pump. The pump involved her anterior abdominal wall on the right side her abdomen and the tubing was tunneled in the subcutaneous tissue across the midline to the left side of the abdomen and I had to divide that tubing to do my lower midline incision to perform this procedure. The sigmoid colon continued with acute inflammation. There was abscess along the left ovary which was attached to the sigmoid colon and its mesentery. The entire sigmoid colon appeared to be involved with inflammation. She was able to have a bowel prep prior to surgery. There was no gross intraabdominal purulence and we performed an end-to-end descending to end proximal rectum EEA anastomosis. PROCEDURE: Dr. Esteban Craven was present throughout the case. His presence was necessary for retraction and also help with exposure and division of the bowel and mesentery and also decision making. He also helped with the EEA stapled anastomosis. The patient was able to undergo a bowel prep prior to presenting for surgery. She has been on antibiotics for several weeks. She continued to have symptoms and therefore we have recommended sigmoid colectomy. She was brought to the operating room, received general anesthesia, was intubated. Barnes catheter tube was placed. She was placed in the modified lithotomy position. She received IV Invanz. Her abdomen was prepped and draped in a sterile field. We used an Ioban on the skin. We made a midline incision and within the subcutaneous tissue we came across this catheter from a pain pump in the right lower quadrant of her abdomen. This catheter was in the subcutaneous tissue and is right in the middle of our lower midline incision and I had to divide it. I placed 2 large clips on either side prior to dividing this catheter. It was left in the subcutaneous tissue. The subcutaneous tissue was divided using cautery and I divided the fascia which was thin in the midline and the abdomen was carefully entered. We had to take down some adhesions between the greater omentum and the anterior abdominal wall and the pelvic sidewall. The patient was placed in Trendelenburg and we packed the small bowel up into the abdomen. We began mobilizing the sigmoid colon. We used cautery to incise in the adhesions between the sigmoid colon and left pelvic sidewall. We had to use blunt finger dissection and finger-fracture technique to mobilize the sigmoid colon further off the left pelvic sidewall and the left ovary. The proximal rectum was not involved with any inflammation. We came across the proximal rectum just below the sacral promontory with a 45 mm in length TA blue load stapler. We mobilized the sigmoid colon from distal to proximal. We did use the LigaSure to come across the mesentery. We stayed closer to the bowel than cancer resection to avoid the ureters. We did take the inferior mesenteric artery and probably the vein using the LigaSure. We took the entire length of the sigmoid colon. We mobilized the descending colon by incising the peritoneum laterally using blunt finger dissection to mobilize the sigmoid colon. I used a pursestring instrument to come across the distal descending colon right proximal to the sigmoid colon. I sized the descending colon. We used a 28 mm anvil placed it into the descending colon and tied the pursestring around this anvil. We took some time to debride any the fat involving the anvil and the distal descending colon. We placed 2 stay stitches on either side of the rectum and took some time to dissect any fat along our staple line of the rectum. We had length enough to perform an end-to-end EEA anastomosis with no tension. At this point, I went below. Dr. Craven was above at the abdominal side. I placed the EEA stapler into the rectum after dilating the anus and rectum with dilators. We mated the anvil to our EEA stapler and fired the EEA stapler to create our end-to-end anastomosis. We were happy with our donuts. They were intact. I used a rigid proctoscope and blew air across our anastomosis and there was no evidence of leak from the pelvic side where we had placed warm irrigation. At this point, I went back to the abdomen. We took time to irrigate out the pelvis. We checked our anastomosis. We were happy with it. We placed the bowel back in its anatomically correct position. We placed the greater omentum over the surface of the bowel and I closed the fascia in several layers because of how thinned out it was. I used internal retention sutures. These were 0 Vicryl stitches. I also closed the peritoneum with a running 0 Vicryl stitch and then I closed the fascia in a running fashion with a #1 Maxon stitch and then I tied my 0 Vicryl internal retention sutures once that Maxon stitch was completed. I thoroughly irrigated out the midline incision. I closed the skin with a skin clip kennel aide, Xeroform, followed by dry dressing and Medipore tape was placed. We will leave the Barnes catheter tube in place. We did not use an NG tube. We will have to address her pain pump at a later date. cc: Jenny Corado MD
[2019-03-22] MEDS: ZOFRAN IV PRN (19:26)
[2019-03-22] MEDS: OFIRMEV 1000 MG/ISOTONIC SOLN 1,000 MG/100 ML BOTTLE IV SCH (21:56)
[2019-03-22] MEDS: PERIDEX MT SCH (21:57)
[2019-03-22] MEDS: MIRAPEX PO SCH (22:11)
[2019-03-22] MEDS: LIPITOR PO SCH (22:11)
[2019-03-23] MEDS: OFIRMEV 1000 MG/ISOTONIC SOLN 1,000 MG/100 ML BOTTLE IV SCH ×3 (01:31→13:56)
[2019-03-23] MEDS: D5 1/2 NS + KCL 20 MEQ 1,000 ML IV SCH ×2 (05:20→17:12)
[2019-03-23] MEDS: MOTRIN PO SCH ×4 (06:09→23:59)
[2019-03-23] MEDS: HUMALOG SUBQ SCH ×4 (06:43→20:12)
[2019-03-23] MEDS: LOVENOX SUBQ SCH (06:45)
[2019-03-23 07:57] LABS: AGAP 11; BUN 9 mg/dL (8-22); CALCIUM 8.9 mg/dL (8.8-10.2); CHLORIDE 102 mmol/L (98-107); COSMO 272; CREATININE 0.6 mg/dL (0.5-0.9); ESTIMATED GFR > 60; GLUCOSE 219 mg/dL (70-104); POTASSIUM 4.6 mmol/L (3.5-5.1); SODIUM 133 mmol/L (136-145); TCO2 20 mmol/L (25-35)
[2019-03-23] MEDS: SYNTHROID PO SCH ×2 (08:49→08:54)
[2019-03-23] MEDS: PROTONIX PO SCH (08:54)
[2019-03-23] MEDS: PERIDEX MT SCH ×2 (08:54→20:11)
[2019-03-23] MEDS: CYMBALTA PO SCH (08:55)
[2019-03-23] MEDS: COZAAR PO SCH (08:55)
--- NOTE | 2019-03-23 11:22 | PROGRESS NOTE ---
DATE: 03/23/2019 SUBJECTIVE: Ms. Em Orellana is now postop day 1 from an open low anterior colon resection for ongoing acute complicated sigmoid diverticulitis. We were able to have her undergo a bowel prep and we did a primary anastomosis without diverting ostomy. Of note, during surgery, we had to divide her catheter from a morphine pain pump going to her back because it went across the midline. We have her on a Dilaudid pain pump for that reason. OBJECTIVE: This morning she is awake she is comfortable and is asking about getting out of bed. She has tolerated ice chips and we will advance her diet to a liquid diet. We will leave her Barnes catheter until tomorrow morning. Her heart rate is 92, blood pressure 135/73, O2 saturation 98%. She is afebrile. ASSESSMENT/PLAN: She got IV Invanz prior to surgery. We will obtain a CBC and Chem 7 in the morning. cc: Jenny Corado MD
[2019-03-23] MEDS: SODIUM CHLORIDE 0.9% INJ PRN (14:05)
[2019-03-23] MEDS: PHENERGAN IV PRN ×2 (14:05→20:11)
[2019-03-23] MEDS: LR 1,000 ML IV SCH (16:41)
[2019-03-23] MEDS: LIPITOR PO SCH (20:11)
[2019-03-23] MEDS: MIRAPEX PO SCH (20:11)
[2019-03-24] MEDS: PHENERGAN IV PRN ×3 (02:06→20:15)
[2019-03-24] MEDS: D5 1/2 NS + KCL 20 MEQ 1,000 ML IV SCH ×2 (05:41→16:49)
[2019-03-24] MEDS: LOVENOX SUBQ SCH (05:41)
[2019-03-24] MEDS: HUMALOG SUBQ SCH ×4 (06:58→21:36)
[2019-03-24 07:58] LABS: BASO# 0.03 X1000 (0.0-0.2); BASO% 0.3 % (0.0-0.8); EOS# 0.21 X1000 (0.0-0.7); EOS% 1.8 % (0.0-10.0); HEMATOCRIT 38.3 % (37.0-47.0); HEMOGLOBIN 12.4 g/dL (12.0-16.0); LYMPH# 1.88 X1000 (1.2-3.4); LYMPH% 16.4 % (20.5-51.1); MCH 28.8 PG (27-31); MCHC 32.4 g/dL (33-37); MCV 89.1 FL (81-99); MONO% 6.1 % (1.7-9.3); MPV 11.1 FL (7.4-10.4); NEUT# 8.66 X1000 (1.4-6.5); NEUT% 75.4 % (42.2-75.2); PLT 237 X1000 (130-400); RDW 14.3 % (11.5-14.5); WBC 11.48 X1000 (4.8-10.8)
[2019-03-24 08:49] LABS: AGAP 9; BUN 8 mg/dL (8-22); CALCIUM 8.6 mg/dL (8.8-10.2); CHLORIDE 101 mmol/L (98-107); COSMO 277; CREATININE 0.6 mg/dL (0.5-0.9); ESTIMATED GFR > 60; GLUCOSE 221 mg/dL (70-104); POTASSIUM 3.9 mmol/L (3.5-5.1); SODIUM 136 mmol/L (136-145); TCO2 26 mmol/L (25-35)
[2019-03-24] MEDS: SODIUM CHLORIDE 0.9% INJ PRN (09:46)
[2019-03-24] MEDS: CYMBALTA PO SCH (09:49)
[2019-03-24] MEDS: PERIDEX MT SCH ×2 (09:49→20:10)
[2019-03-24] MEDS: PROTONIX PO SCH (09:50)
[2019-03-24] MEDS: COZAAR PO SCH (09:50)
[2019-03-24] MEDS: MOTRIN PO SCH ×2 (09:50→16:28)
[2019-03-24] MEDS: SYNTHROID PO SCH (10:10)
--- NOTE | 2019-03-24 14:38 | PROGRESS NOTE ---
DATE: 03/24/2019 Ms. Em Orellana is now postop day 2 from an open low anterior colon resection for acute sigmoid diverticulitis with complication of abscess. We were able to do this semi electively, and she underwent a bowel prep so we did an end-to-end stapled anastomosis. She received IV Invanz prior to surgery. I have not placed her on any more antibiotics. She states that she has had some flatus. She has tolerated some clear liquids. We removed her Barnes catheter tube today. It must be noted that she had a pain pump going into her back. I had to divide that catheter because it went across the midline. Therefore, we have been treating her with a pain pump postoperatively. Her heart rate is 98, blood pressure 150/80, and O2 saturation 97%. She is afebrile. Her white blood cell count was 11.5 yesterday. BUN and creatinine are 8 and 0.6. We do not have labs from today. I will plan to check those tomorrow. Her midline incision is dressed. She has been in a chair. I will advance her diet to a heart healthy diet. At discharge, she will need p.o. morphine equivalent. She will need to return to the pain clinic as she heals from this operation. cc: Jenny Corado MD
[2019-03-24] MEDS: LR 1,000 ML IV SCH (15:58)
[2019-03-24] MEDS: LIPITOR PO SCH (20:10)
[2019-03-24] MEDS: MIRAPEX PO SCH (20:10)
[2019-03-25] MEDS: MOTRIN PO SCH ×3 (00:27→17:37)
[2019-03-25] MEDS: PHENERGAN IV PRN ×3 (04:04→18:48)
[2019-03-25] MEDS: D5 1/2 NS + KCL 20 MEQ 1,000 ML IV SCH ×2 (04:06→18:47)
[2019-03-25] MEDS: LOVENOX SUBQ SCH (05:20)
[2019-03-25] MEDS: HUMALOG SUBQ SCH ×4 (06:15→22:25)
[2019-03-25] MEDS: COZAAR PO SCH (08:48)
[2019-03-25] MEDS: SYNTHROID PO SCH (08:49)
[2019-03-25] MEDS: CYMBALTA PO SCH (08:49)
[2019-03-25] MEDS: PROTONIX PO SCH (08:49)
[2019-03-25] MEDS: PERIDEX MT SCH ×2 (08:50→21:27)
[2019-03-25] MEDS: SODIUM CHLORIDE 0.9% INJ PRN ×2 (11:58→18:48)
--- NOTE | 2019-03-25 13:11 | GENERAL SURGERY PROGRESS NOTE ---
DATE: 03/25/2019 Ms. Orellana is now postop day 3 after her sigmoid resection for diverticulitis and abscess. She is doing generally well. She is afebrile with stable hemodynamics. She has passing flatus. She is on solid food which she has tolerated satisfactorily. The primary question is regarding her pain medicine going forward and discussion with her pain doctor is to occur on Wednesday. We will reduce her IV rate. cc: MD Jenny Rosenbaum MD
[2019-03-25] MEDS: LR 1,000 ML IV SCH (15:15)
[2019-03-25] MEDS: DILAUDID PCA VIAL IV PRN (15:38)
[2019-03-25] MEDS: MIRAPEX PO SCH (21:27)
[2019-03-25] MEDS: LIPITOR PO SCH (21:27)
[2019-03-26] MEDS: PHENERGAN IV PRN ×4 (00:14→22:14)
[2019-03-26] MEDS: MOTRIN PO SCH ×3 (00:15→16:15)
[2019-03-26] MEDS: LOVENOX SUBQ SCH (05:30)
[2019-03-26] MEDS: HUMALOG SUBQ SCH ×4 (06:20→22:15)
--- NOTE | 2019-03-26 07:44 | GENERAL SURGERY PROGRESS NOTE ---
DATE: 03/26/2019 She is afebrile, stable hemodynamics. She has passed some flatus. She continues to tolerate diet. Her abdomen is slightly distended with hypoactive bowel sounds. She has been up to the bathroom. We have reduced her fluids to KVO. There will be consultation tomorrow with her pain doctor about going forward with her pain medication. cc: MD Jenny Rosenbaum MD
[2019-03-26] MEDS: SYNTHROID PO SCH (08:28)
[2019-03-26] MEDS: PROTONIX PO SCH (08:29)
[2019-03-26] MEDS: COZAAR PO SCH (08:29)
[2019-03-26] MEDS: CYMBALTA PO SCH (08:29)
[2019-03-26] MEDS: PERIDEX MT SCH ×2 (08:29→21:43)
[2019-03-26] MEDS: SODIUM CHLORIDE 0.9% INJ PRN ×2 (08:36→16:15)
[2019-03-26] MEDS: LR 1,000 ML IV SCH (17:23)
[2019-03-26] MEDS: D5 1/2 NS + KCL 20 MEQ 1,000 ML IV SCH (17:46)
[2019-03-26] MEDS: MIRAPEX PO SCH (21:43)
[2019-03-26] MEDS: LIPITOR PO SCH (21:43)
[2019-03-27] MEDS: MOTRIN PO SCH ×3 (00:05→16:19)
[2019-03-27] MEDS: LOVENOX SUBQ SCH (06:03)
[2019-03-27] MEDS: HUMALOG SUBQ SCH ×4 (06:03→21:12)
[2019-03-27] MEDS: PERIDEX MT SCH ×2 (08:01→21:10)
[2019-03-27] MEDS: COZAAR PO SCH (08:01)
[2019-03-27] MEDS: PROTONIX PO SCH (08:01)
[2019-03-27] MEDS: CYMBALTA PO SCH (08:01)
[2019-03-27] MEDS: SYNTHROID PO SCH (08:01)
[2019-03-27] MEDS: PHENERGAN IV PRN ×2 (12:22→21:10)
[2019-03-27] MEDS: SODIUM CHLORIDE 0.9% INJ PRN ×2 (12:23→21:10)
[2019-03-27] MEDS: D5 1/2 NS + KCL 20 MEQ 1,000 ML IV SCH (16:18)
[2019-03-27] MEDS: DILAUDID PCA VIAL IV PRN (16:44)
--- NOTE | 2019-03-27 18:53 | PROGRESS NOTE ---
DATE: 03/27/2019 SUBJECTIVE: Ms. Em Orellana is now postop day 5 from a low anterior colon resection for diverticulitis. She has been ambulating in the halls. She has less abdominal pain. She has had flatus, but no bowel movement. She is feeling increasingly anxious and nervous and she felt it may be related to her morphine pain pump. She is on chronic pain medicine for her back. Her heart rate is 82, blood pressure 141/69, O2 saturation 98%. She is afebrile. Her midline incision looks like it is healing well without complication. She is on a heart healthy diet. We need to look to increase her activity and I will check labs on her in the morning. We will touch base with her Pain Clinic to see what we can send her home on by mouth. cc: Jenny Corado MD
[2019-03-27] MEDS: LIPITOR PO SCH (21:10)
[2019-03-27] MEDS: MIRAPEX PO SCH (21:10)
[2019-03-28] MEDS: MOTRIN PO SCH ×3 (01:59→16:03)
[2019-03-28] MEDS: PHENERGAN IV PRN (03:18)
[2019-03-28] MEDS: SODIUM CHLORIDE 0.9% INJ PRN (03:18)
[2019-03-28] MEDS: HUMALOG SUBQ SCH ×3 (06:56→16:00)
[2019-03-28] MEDS: LOVENOX SUBQ SCH (07:15)
[2019-03-28 07:32] LABS: BASO# 0.02 X1000 (0.0-0.2); BASO% 0.2 % (0.0-0.8); EOS# 0.44 X1000 (0.0-0.7); EOS% 4.9 % (0.0-10.0); HEMATOCRIT 33.8 % (37.0-47.0); HEMOGLOBIN 10.7 g/dL (12.0-16.0); LYMPH# 1.97 X1000 (1.2-3.4); LYMPH% 21.7 % (20.5-51.1); MCH 28.5 PG (27-31); MCHC 31.7 g/dL (33-37); MCV 89.9 FL (81-99); MONO# 0.77 X1000 (0.11-0.59); MONO% 8.5 % (1.7-9.3); MPV 11.8 FL (7.4-10.4); NEUT# 5.86 X1000 (1.4-6.5); NEUT% 64.7 % (42.2-75.2); PLT 234 X1000 (130-400); RBC 3.76 XMIL (4.2-5.4); RDW 14.2 % (11.5-14.5); WBC 9.06 X1000 (4.8-10.8)
[2019-03-28 07:51] LABS: AGAP 9; BUN 13 mg/dL (8-22); CALCIUM 8.7 mg/dL (8.8-10.2); CHLORIDE 100 mmol/L (98-107); COSMO 278; CREATININE 0.7 mg/dL (0.5-0.9); ESTIMATED GFR > 60; GLUCOSE 247 mg/dL (70-104); POTASSIUM 3.9 mmol/L (3.5-5.1); SODIUM 135 mmol/L (136-145); TCO2 26 mmol/L (25-35)
[2019-03-28] MEDS: CYMBALTA PO SCH (09:35)
[2019-03-28] MEDS: COZAAR PO SCH (09:35)
[2019-03-28] MEDS: PERIDEX MT SCH (09:35)
[2019-03-28] MEDS: PROTONIX PO SCH (09:35)
[2019-03-28] MEDS: SYNTHROID PO SCH (09:35)
[2019-03-28] MEDS: ZOFRAN IV PRN (10:51)
[2019-03-28 12:22] VITALS: BP 100/56
--- NOTE | 2019-03-28 22:05 | DISCHARGE SUMMARY ---
ADMISSION DATE: 03/22/2019 DISCHARGE DATE: 03/28/2019 ADMITTING DIAGNOSIS: Acute complicated sigmoid diverticulitis. DISCHARGE DIAGNOSIS: Acute complicated sigmoid diverticulitis. PRINCIPAL PROCEDURE: Open low anterior colon resection on 03/22/2019. DISCHARGE DISABILITIES: Full. DISCHARGE DISPOSITION: She will return to our outpatient offices next Wednesday for recheck. DISCHARGE MEDICATIONS: She is to return to her home medication and I wrote her MSIR 50 mg p.o. t.i.d. for pain. HOSPITAL COURSE: Ms. Em Orellana is a 58-year-old white female who has been admitted twice over the last several months with sigmoid diverticulitis. P.o. antibiotics were continued as an outpatient but her symptoms never totally went away. She continued to have left-sided abdominal discomfort and so resection of her sigmoid colon was recommended. She underwent a bowel prep at home. She was admitted on the day of surgery and she underwent an open low anterior colon resection with an end descending to end rectum 28 mm EEA stapled anastomosis. We felt the surgery went well. We did not use an NG tube or abdominal drain. She did have a Barnes catheter tube in place. It must be noted that during surgery we had to come across the catheter of her back pain pump. After surgery she went to the recovery room. We put her on a Dilaudid pain pump because of her chronic pain. In 2 days we removed her Barnes catheter tube. We felt that her postoperative convalescence was normal. Her postoperative convalescence was somewhat slowed by her pain pump and her chronic pain as far as getting her activity started. At discharge, she was passing flatus. She had not had a bowel movement. Her midline incision was healing without problems. Her abdomen was soft. She was able to ambulate in the halls. She had a little bit of nausea. She felt she was having some pain medicine withdrawal but on 03/28/2019 I felt safe to discharge her home under the care of her with followup in my outpatient offices this coming Wednesday. At discharge, her heart rate was 87, blood pressure 100/56, O2 saturation 95%. She was afebrile. Her white blood cell count was normal. Hematocrit 34%. Electrolytes were within normal limits. She is to return to her home medicine, take MSIR for pain. She is to see the Pain Clinic in [place] on April [address] Sands. cc: Jenny Corado MD
== END 2019-03-28 16:09 | disposition home or self-care (01) | DRG 331 ==
LOC: SURHOLD 11:06 → 4N 15:50
PROVIDERS: ADMIT Surgery; ATTEND Surgery

== ENCOUNTER 2019-04-15 16:13 | Inpatient (IN) ==
[2019-04-15 17:21] LABS: BASO# 0.07 X1000 (0.0-0.2); BASO% 0.5 % (0.0-0.8); EOS# 0.27 X1000 (0.0-0.7); EOS% 2.1 % (0.0-10.0); HEMATOCRIT 41.1 % (37.0-47.0); HEMOGLOBIN 13.3 g/dL (12.0-16.0); IMM GRAN# 0.02 X1000 (0.0-0.04); IMM GRAN% 0.2 % (0.0-0.5); LYMPH# 3.29 X1000 (1.2-3.4); LYMPH% 25.4 % (20.5-51.1); MCH 27.8 PG (27-31); MCHC 32.4 g/dL (33-37); MONO# 0.85 X1000 (0.11-0.59); MONO% 6.6 % (1.7-9.3); MPV 11.1 FL (7.4-10.4); NEUT# 8.45 X1000 (1.4-6.5); NEUT% 65.2 % (42.2-75.2); PLT 343 X1000 (130-400); RBC 4.78 XMIL (4.2-5.4); RDW 13.5 % (11.5-14.5); WBC 12.95 X1000 (4.8-10.8)
[2019-04-15 17:37] LABS: AGAP 15; ALB/GLOB RATIO 0.9; ALBUMIN 3.7 g/dL (3.5-5.0); ALKALINE PHOSPHATASE 120 U/L (32-104); AMYLASE 37 U/L (20-200); BUN 13 mg/dL (8-22); CALCIUM 9.6 mg/dL (8.8-10.2); CHLORIDE 96 mmol/L (98-107); COSMO 280; CREATININE 0.8 mg/dL (0.5-0.9); ESTIMATED GFR > 60; GLUCOSE 346 mg/dL (70-104); GOT 16 U/L (10-30); GPT 19 U/L (10-36); LIPASE 36 U/L (13-60); SODIUM 133 mmol/L (136-145); TCO2 22 mmol/L (25-35); TOTAL BILIRUBIN 0.33 mg/dL (0.20-1.00); TOTAL PROTEIN 7.8 g/dL (6.3-8.3)
--- NOTE | 2019-04-15 18:37 | PROVIDER DOCUMENTATION ---
HPI-General Adult - General Chief Complaint: Post Op Complaint Stated Complaint: POST OP COMPLAINT Time Seen by Provider: 04/15/19 18:24 Source: patient, family Allergies/Adverse Reactions: Patient Allergies Allergy/AdvReac Type Severity Reaction Status Date / Time adhesive tape Allergy Unknown Verified 04/15/19 22:30 codeine AdvReac Intermediate NAUSEA/VOMI Verified 04/15/19 22:30 TING Home Medications: Home Medication List Medication Instructions Recorded Confirmed Last Taken Type Sitagliptin [Januvia] 100 mg PO DAILY 09/03/13 04/15/19 04/15/19 History Empagliflozin [Jardiance] 25 mg PO DAILY 04/29/16 04/15/19 04/15/19 History Aspirin 81 mg PO DAILY #0 chewtab 05/02/16 04/15/19 04/15/19 Rx ATORVAstatin [Lipitor] 40 mg PO QHS 02/13/19 04/15/19 04/15/19 History Duloxetine HCl 60 mg PO DAILY 02/13/19 04/15/19 04/15/19 History Ergocalciferol (Vitamin D2) 50,000 units PO DIRECTED 02/13/19 04/15/19 04/15/19 History [Vitamin D2] Levothyroxine Sodium [Synthroid] 137 mcg PO EVERY OTHER DAY 02/13/19 04/15/19 04/15/19 History Levothyroxine [Synthroid] 150 mcg PO EVERY OTHER DAY 02/13/19 04/15/19 04/15/19 History Losartan Potassium 50 mg PO DAILY 02/13/19 04/15/19 04/15/19 History Multivitamins/Minerals [Centrum 1 tab PO DAILY 02/13/19 04/15/19 04/15/19 History Silver] Pantoprazole Sodium 40 mg PO DAILY 02/13/19 04/15/19 04/15/19 History Pramipexole Di-HCl [Pramipexole 0.5 mg PO QHS 02/13/19 04/15/19 04/15/19 History Dihydrochloride] Patient's Own Med (Controlled) 1 dose ORDERED PRN PRN 03/16/19 04/15/19 04/15/19 History Promethazine [Phenergan] 25 mg PO Q6H PRN PRN #5 tab 02/06/1104/15/19 04/15/19 Rx Morphine Sulfate 15 mg PO TID PRN 04/15/19 04/15/19 Unknown History - History of Present Illness -Gen Adult Nature of Presenting Problems: This is a 58yo female who presents with CC of abdominal pain. Pt reports surgery on Mar 22 with colon resection for diverticulitis. Pt reports that 3 days ago she noted increased abdominal pain and was given abx by her surgeon, but pain increased and pt was told to come to ED. Pt currently complaining of lower abdominal pain and low grade fever at home. Pain: lower abdomen Provocation/Paliation: worse with movement Quality: sharp Locations/Radiation: lower abdomen, no other pain Symptoms: nausea and low grade fever Onset/Timin days ago, progressive Review of Systems - Adult - REVIEW OF SYSTEMS - ADULT Constitutional: reports: fever Eyes: reports: no symptoms reported. denies: eye pain Ears, Nose, Mouth & Throat: reports: no symptoms reported. denies: throat pain Cardiovascular: reports: no symptoms reported. denies: chest pain Respiratory: reports: shortness of breath Gastrointestinal: reports: abdominal pain, diarrhea Genitourinary: reports: no symptoms reported. denies: flank pain Musculoskeletal: reports: no symptoms reported. denies: back pain Integumentary: reports: other (drainage from incision) Neurological: reports: no symptoms reported. denies: headache/migraines Psychiatric: reports: no symptoms reported. denies: alcohol/drug dependence Endocrine: reports: no symptoms reported Hematologic/Lymphatic: reports: no symptoms reported Allergic/Immunologic: reports: no symptoms reported Past History - Adult - PAST MEDICAL HISTORY-ADULT Review of Records: reports: Old Records Reviewed Major Childhood Illnesses: reports: denies history Cardiovascular: reports: HTN, hyperlipidemia, [place] Respiratory: reports: denies history Gastrointestinal: reports: denies history Obstetrical/Gynecological: reports: denies history Genitourinary: reports: denies history Musculoskeletal: reports: chronic pain Neurological: reports: denies history Endocrine/Immune: reports: Diabetes, thyroid disorder Other Conditions: reports: denies history - PRIOR SURGERIES/PROCEDURES Surgical/Procedure History: reports: BTL, back/neck (4 times ), other (internal pain pump) - PRIOR HOSPITALIZATIONS Prior Hospitalizations: reports: none - IMMUNIZATION STATUS Childhood Immunizations: See Nurse Assessment Flu Vaccine: See Nurse Assessment - FAMILY HISTORY Family History: CAD under 55yo Physical Exam-General - PHYSICAL EXAM-ADULT Initial Vital Signs Reviewed: Yes - CONSTITUTIONAL General Appearance: alert, mild distress - EYES Eyes: negative: conjuctival exudate, photophobia, sclera injected, scleral icterus - HEAD, EARS, NOSE, MOUTH & THROAT HENMT: normocephalic/atraumatic, moist mucous membranes, pharynx normal - NECK Neck: non-tender, supple - RESPIRATORY Respiratory: normal breath sounds, no respiratory distress - CARDIOVASCULAR Cardiovascular: tachycardia. negative: no edema (trace LE edema) - GASTROINTESTINAL (ABDOMEN) Abdominal Exam: tenderness (diffusely tender around incision site.), other (incision with small amount purulent drainage noted and some surrounding erythema.) Progress - PLAN OF CARE/RESULTS Progress/Plan/Lab Results: Vital Signs - 8 hr 04/15/19 16:18 Temperature 98.0 F Pulse Rate 101 H Respiratory Rate 20 Blood Pressure 176/90 O2 Sat by Pulse Oximetry 97 Laboratory Results - last 24 hr 04/15/19 04/15/19 17:13 17:13 WBC 12.95 H RBC 4.78 Hgb 13.3 Hct 41.1 MCV 86.0 MCH 27.8 MCHC 32.4 L RDW Std Deviation 13.5 Plt Count 343 MPV 11.1 H Immature Gran % (Auto) 0.2 Neut % (Auto) 65.2 Lymph % (Auto) 25.4 Patrick % (Auto) 6.6 Eos % (Auto) 2.1 Baso % (Auto) 0.5 Immature Gran # (Auto) 0.02 Neut # (Auto) 8.45 H Lymph # (Auto) 3.29 Patrick # (Auto) 0.85 H Eos # (Auto) 0.27 Baso # (Auto) 0.07 Sodium 133 L Potassium 4.0 Chloride 96 L Carbon Dioxide 22 L Anion Gap 15 BUN 13 Creatinine 0.8 Estimated GFR/1.73 m2 > 60 BUN/Creatinine Ratio 16 Glucose 346 H Calculated Osmolality 280 Calcium 9.6 Total Bilirubin 0.33 AST 16 ALT 19 Alkaline Phosphatase 120 H Total Protein 7.8 Albumin 3.7 Globulin 4.1 Albumin/Globulin Ratio 0.9 Amylase 37 Lipase 36 Orders Category Date Time Status Saline Loc DIRECTED Care 04/15/19 16:26 Active NPO Diet 04/15/19 16:[address] ABD/PELVIS W/IV CONT ONLY [CT] Stat Exams 04/15/19 18:34 Ordered AMYLASE [CHEM] Stat Lab 04/15/19 17:13 Completed CBC WITH ELECTRONIC DIFF [HEME] Stat Lab 04/15/19 17:13 Completed COMPREHENSIVE METABOLIC PANEL [CHEM] Stat Lab 04/15/19 17:13 Completed LIPASE [CHEM] Stat Lab 04/15/19 17:13 Completed URINALYSIS W/POSS RFLX CULT [URINALYSIS] Stat Lab 04/15/19 16:26 Uncollected Result Diagrams: 04/15/19 17:13 04/15/19 17:13 - REASSESSMENT Reassessment #1 Status: other (Discussed case with the patient's surgeon who would like the patient admited to the hospitalist team and started on abx. Discussed the case with the hospitalist team who have accepted the patient.) - CT/MRI 1 CT Study: Abdomen Impression: See EMR Report ( EXAM: CT ABD/PELVIS W/IV CONT ONLY HISTORY: Abdominal Pain TECHNIQUE: CT abdomen and pelvis with intravenous contrast. COMPARISON: 02/23/2019 FINDINGS: There continues to be fatty infiltration of the liver. No calcified gallstones. No adjacent inflammation. Normal spleen, pancreas, adrenal glands, and kidneys. No hydronephrosis. No aortic aneurysm. Normal appendix. No bowel obstruction. There are scattered colonic diverticula. There are sutures noted the rectosigmoid junction. Urinary bladder is distended and normal. Normal uterus and ovaries. There is an irregular fluid collection with adjacent inflammation in the subcutaneous tissues of the anterior pelvis measuring at least 3.5 x 3.8 x 6.6 cm. There is air within this. This is beneath the level of the umbilicus. IMPRESSION: 1.Abscess in the subcutaneous fat of the anterior pelvis 2.Fatty infiltration of the liver 3.No pericolonic abscess on the current exam This exam was performed using automated exposure control, adjustment of mA or kV according to patient size, and/or use of iterative reconstruction technique. Electronically signed by Cheng Matthew 04/15/2019 9:25 PM 04/15/192124 Interpreting Physician: Cheng Matthew MD Dictated Date/Time: 04/15/192119 cc: Anant Gudino MD; Maame Hinson MD) Departure - Departure Date of Disposition Decision: 04/16/19 Time of Disposition Decision: 21:45 DIAGNOSIS: Wound infection after surgery Disposition: ADMITTED INPATIENT 09 Certified Medical Emergency: Emergent Condition: Fair - Critical Care Note This patient required my direct & personal management of CC.: No Attestation - Physician/ ANG Attestation Patient care was provided by Advanced Practice Provider:: No The physician spent face to face time with patient:: Yes Advanced Practice Provider documentation review:: Supervising physician onsite and consulted in the evaluation and care of this patient. The physician did have a face to face encounter with the patient.
[2019-04-15] MEDS ORDERED: MORPHINE IV ONE (20:20)
[2019-04-15] MEDS ORDERED: MORPHINE ONE (20:29)
[2019-04-15] MEDS ORDERED: ZOFRAN IV ONE (20:43)
--- NOTE | 2019-04-15 21:28 | Diag Imaging Result Doc PS360 ---
EXAM: CT ABD/PELVIS W/IV CONT ONLY HISTORY: Abdominal Pain TECHNIQUE: CT abdomen and pelvis with intravenous contrast. COMPARISON: 02/23/2019 FINDINGS: There continues to be fatty infiltration of the liver. No calcified gallstones. No adjacent inflammation. Normal spleen, pancreas, adrenal glands, and kidneys. No hydronephrosis. No aortic aneurysm. Normal appendix. No bowel obstruction. There are scattered colonic diverticula. There are sutures noted the rectosigmoid junction. Urinary bladder is distended and normal. Normal uterus and ovaries. There is an irregular fluid collection with adjacent inflammation in the subcutaneous tissues of the anterior pelvis measuring at least 3.5 x 3.8 x 6.6 cm. There is air within this. This is beneath the level of the umbilicus. IMPRESSION: 1.Abscess in the subcutaneous fat of the anterior pelvis 2.Fatty infiltration of the liver 3.No pericolonic abscess on the current exam This exam was performed using automated exposure control, adjustment of mA or kV according to patient size, and/or use of iterative reconstruction technique. Electronically signed by Cheng Matthew 04/15/2019 9:25 PM
[2019-04-15] MEDS ORDERED: VANCOMYCIN 1 GM/NS 1 GM/250 ML IVPB IV ONE (21:32)
[2019-04-15] MEDS ORDERED: NS 1,000 ML IV ONE (21:34)
[2019-04-15] MEDS: FLAGYL 500 MG/NS 500 MG/100 ML IVPB IV SCH (22:28)
[2019-04-16] MEDS: NS 1,000 ML IV SCH ×3 (00:53→18:18)
[2019-04-16] MEDS: MORPHINE IV PRN ×2 (01:11→04:03)
[2019-04-16] MEDS: MIRAPEX PO SCH ×2 (01:12→21:08)
[2019-04-16] MEDS: ZOFRAN IV PRN ×5 (01:12→22:32)
[2019-04-16] MEDS: CIPRO 400 MG/D5W 400 MG/200 ML IVPB IV SCH ×2 (01:12→13:38)
--- NOTE | 2019-04-16 03:33 | GENERAL SURGERY CONSULTATION ---
DATE: 04/15/2019 REASON FOR CONSULTATION: Pain and drainage from her abdominal wound, low-grade fevers. HISTORY OF PRESENT ILLNESS: This is a 58-year-old female who underwent a sigmoid colectomy by Dr. Corado a couple weeks ago for diverticular abscess. She also had an indwelling pain pump. She was seen by me in the office on Wednesday afternoon and had a large amount of fat necrosis that drained from the inferior wound. She was started on clindamycin. She did not really tolerate the clindamycin and called today with worsening pain, swelling of her incision. She had a large amount of drainage overnight. She came to the ER for further workup at my recommendation. Otherwise, her bowels are functioning. No nausea, vomiting. She just has pain in the lower aspect of her incision. MEDICAL HISTORY: She has chronic pain with an indwelling pain pump, it had to be partially removed at the time of surgery. She also has diabetes, hypertension, hypothyroidism, obesity, restless legs syndrome, and cardiomyopathy. SURGICAL HISTORY: She has had numerous back surgeries, an implanted pain pump, tubal ligation, as well as recent sigmoid colectomy. SOCIAL HISTORY: She does not smoke. She has attentive family. FAMILY HISTORY: Reviewed and noncontributory. REVIEW OF SYSTEMS: Ten-point review of systems negative, other than what is mentioned in HPI. PHYSICAL EXAMINATION: Vital signs: She is afebrile, pulse 101, blood pressure 176/90, oxygen 97%. She is 220 pounds, 5 foot 3 inches. General: She is alert, in no acute distress. HEENT: There is no scleral icterus. Neck: No cervical mass. Cardiovascular: Normal rate. Pulmonary: No increased work of breathing. Abdomen: Obese. It is soft. There is a midline incision. There is some cellulitis inferiorly and there is a wound in the center aspect with a large amount of expressible purulent material. The fascia seems to be intact. Otherwise, she is soft with no peritonitis. Integument: Warm, dry. Psychiatric: Appropriate affect. Neurologic: No gross deficits. She does have lower extremity edema. LABORATORY DATA: White count 12, hematocrit 41, platelets 343,000. Creatinine 0.8. LFTs are normal with the exception of mild elevation in her alkaline phosphatase. Lipase is normal. CT scan is pending. ASSESSMENT AND PLAN: This is a 58-year-old female with wound infection, status post sigmoid colectomy for complicated diverticulitis. I have drained a large amount of purulent material and cultured it at the bedside, but I have recommended operative washout in the OR and wound exploration tomorrow. We need to make a more dependent incision so that this will facilitate drainage as well as most likely placing a passive type drain. She will be admitted to the hospitalist given her comorbid conditions. We will start her on vancomycin, Cipro and Flagyl, I have talked to the ER doctor about this. Otherwise, we will make her n.p.o. at midnight and plan for abdominal wound washout tomorrow. cc: Radha Craven MD
[2019-04-16 03:55] LABS: URINE SOURCE CLEAN CATCH
[2019-04-16 03:57] LABS: BILIRUBIN URINE NEGATIVE (NEGATIVE); BLOOD URINE LARGE (NEGATIVE); COLOR YELLOW; GLUCOSE URINE 1000 mg/dL (NEGATIVE); KETONE URINE TRACE mg/dL (NEGATIVE); LEUKOCYTES URINE NEGATIVE (NEGATIVE); NITRITE URINE NEGATIVE (NEGATIVE); PH URINE 6.5; PROTEIN URINE TRACE mg/dL (NEGATIVE); SP GRAVITY URINE 1.031; TURBIDITY URINE CLEAR (CLEAR); UROBILINOGEN URINE NORMAL (NORMAL)
[2019-04-16 03:58] LABS: UR EPITHELIAL CELLS <10 /HPF (<10); URINE BACTERIA NEGATIVE /HPF; URINE RBC TNTC /HPF (<10); URINE WBC <10 /HPF (<10)
[2019-04-16] MEDS: FLAGYL 500 MG/NS 500 MG/100 ML IVPB IV SCH ×3 (05:08→21:11)
[2019-04-16] MEDS: TYLENOL PO PRN ×2 (05:22→15:49)
--- NOTE | 2019-04-16 05:47 | HISTORY AND PHYSICAL ---
CHIEF COMPLAINT: Abdominal pain for several days. HISTORY OF PRESENT ILLNESS: Ms. Em Orellana is a 58-year-old female, who has a history of diabetes mellitus, hypothyroidism, hypertension, hyperlipidemia, as well as chronic back pain. The patient had colectomy done on 03/22/2019 for diverticulitis. Following that procedure, the patient developed lower abdominal pains as well as fever, along with redness at the surgical site. The patient was seen in the office of her surgeon on 04/14/2019 and some purulent material was expressed from the surgical site. The patient felt some relief, only for her symptoms to recur, and she subsequently presented to the emergency department. She did have a CT scan of the abdomen and pelvis done which showed evidence of abscess in the subcutaneous fat of the anterior pelvis. The patient will be admitted to the floor for further management. PAST MEDICAL HISTORY: 1. Diabetes mellitus. 2. Hypothyroidism. 3. Hypertension. 4. Hyperlipidemia. 5. Chronic back pain. PAST SURGICAL HISTORY: 1. She has had back surgery. 2. Colectomy. 3. She has also had pain pump insertion. SOCIAL HISTORY: No history of cigarette smoking. No alcohol or drug use. ALLERGIES: Patient is allergic to codeine. FAMILY HISTORY: Positive for heart disease. MEDICATIONS: Include the followin. Aspirin 81 mg p.o. daily. 2. Fluoxetine 60 mg p.o. daily. 3. Jardiance 25 mg p.o. once a day. 4. Levothyroxine 150 mcg as directed. 5. Losartan 50 mg p.o. daily. 6. Morphine sulfate 15 mg p.o. 3 times a day. 7. Multivitamin with minerals 1 daily. 8. Pantoprazole 40 mg p.o. daily. 9. Promethazine 25 mg p.o. every 6 hours p.r.n. 10. Januvia 100 mg p.o. daily. 11. Atorvastatin 40 mg p.o. daily. 12. Vitamin D as directed. 13. Pramipexole 0.5 mg p.o. at bedtime. REVIEW OF SYSTEMS: Constitutional: She has fever. She has headaches. Eyes: Uses glasses to drive. ENT: No sinus problems. Cardiovascular: No chest pain. Respiratory: No cough. GI: Has nausea and vomiting. : Has some slight dysuria. Musculoskeletal: Has chronic back pain. Dermatology: No skin lesions. Hematology: No bleeding problems. Endocrinology: Has thyroid disease with diabetes. Psychiatry: Has depression. PHYSICAL EXAMINATION: VITAL SIGNS: Temperature 97.8 degrees, pulse 92, respirations 18, blood pressure is 154/77, oxygen saturation 98%. HEENT: She is atraumatic, normocephalic. She is anicteric. Left pupil looks much larger than the right pupil. No oral lesions noted. NECK: No lymphadenopathy or thyromegaly. CARDIOVASCULAR: S1, S2. RESPIRATORY: Has evidence of good entry bilaterally. ABDOMEN: Soft, nontender. She does have a midline surgical lesion. She does have bloody material draining from the surgical wound. EXTREMITIES: No evidence of edema. CENTRAL NERVOUS SYSTEM: No obvious focal deficits noted. LABORATORY DATA: WBC is 12.95, hematocrit is 41.1, with a platelet count of 343,000. Sodium is 138, potassium 4.0, chloride is 96, bicarbonate 22, BUN is 30, creatinine 0.8. Glucose is 346. UA shows a large amount of blood, less than [address] scan of the abdomen and pelvis shows evidence of abscess in the subcutaneous fat of the anterior pelvis. ASSESSMENT AND PLAN: 1. Abscess in the subcutaneous fat of the anterior pelvis. We will place patient on empiric antibiotics and consult with Surgery for drainage of the abscess. 2. Anterior abdominal wall wound. The patient will require local wound care. 3. Diabetes mellitus. Maintain patient on sliding scale insulin. Monitor blood sugar levels. Check hemoglobin A1c. Place patient on diabetic diet when patient is ready to take orally. 4. Hypertension. Optimize blood pressure control. 5. Hypothyroidism. Check thyroid function tests and maintain patient on levothyroxine. 6. Hyperlipidemia. Continue lipid-lowering agent. 7. Depression. Continue Cymbalta. 8. Chronic pain syndrome. Optimize pain control. 9. Deep vein thrombosis prophylaxis. Sequential compression devices. 10. Gastrointestinal prophylaxis. Proton pump inhibitor. cc: Adonis Jewell MD [facility]
--- NOTE | 2019-04-16 05:49 | EKG Report ---
Test Performed on : 04/16/2019 05:36:28 AM Test Reason : hypertension Blood Pressure : / mmHG Vent. Rate : 082 BPM Atrial Rate : 082 BPM P-R Int : 142 ms QRS Dur : 084 ms QT Int : 392 ms P-R-T Axes : 051 016 034 degrees QTc Int : 457 ms Normal sinus rhythm. Normal ECG When compared with ECG of 13-FEB-2019 02:22, (Unconfirmed) premature ventricular complexes. are no longer present Vent. rate has decreased BY [address] no longer depressed in Lateral leads Confirmed by Tammy Cuellar MD ([id number]) on 04/17/2019 5:29:31 PM
[2019-04-16] MEDS: PRILOSEC PO SCH (06:08)
[2019-04-16] MEDS: DILAUDID IV PRN ×5 (06:09→22:32)
[2019-04-16] MEDS: HUMULIN R SUBQ SCH ×5 (06:30→21:06)
[2019-04-16 07:00] LABS: BASO# 0.04 X1000 (0.0-0.2); BASO% 0.4 % (0.0-0.8); EOS# 0.29 X1000 (0.0-0.7); EOS% 2.8 % (0.0-10.0); HEMATOCRIT 35.5 % (37.0-47.0); HEMOGLOBIN 11.4 g/dL (12.0-16.0); IMM GRAN# 0.02 X1000 (0.0-0.04); IMM GRAN% 0.2 % (0.0-0.5); LYMPH# 3.03 X1000 (1.2-3.4); LYMPH% 29.4 % (20.5-51.1); MCH 27.7 PG (27-31); MCHC 32.1 g/dL (33-37); MCV 86.4 FL (81-99); MONO# 0.82 X1000 (0.11-0.59); MONO% 7.9 % (1.7-9.3); MPV 11.4 FL (7.4-10.4); NEUT# 6.12 X1000 (1.4-6.5); NEUT% 59.3 % (42.2-75.2); PLT 292 X1000 (130-400); RBC 4.11 XMIL (4.2-5.4); RDW 13.4 % (11.5-14.5); WBC 10.32 X1000 (4.8-10.8)
[2019-04-16 07:36] LABS: AGAP 12; ALB/GLOB RATIO 0.9; ALBUMIN 3.1 g/dL (3.5-5.0); ALKALINE PHOSPHATASE 88 U/L (32-104); BUN 9 mg/dL (8-22); CALCIUM 8.6 mg/dL (8.8-10.2); CHLORIDE 98 mmol/L (98-107); COSMO 275; CREATININE 0.6 mg/dL (0.5-0.9); ESTIMATED GFR > 60; GLUCOSE 279 mg/dL (70-104); GOT 21 U/L (10-30); GPT 19 U/L (10-36); POTASSIUM 3.6 mmol/L (3.5-5.1); SODIUM 133 mmol/L (136-145); TCO2 23 mmol/L (25-35); TOTAL BILIRUBIN 0.38 mg/dL (0.20-1.00); TOTAL PROTEIN 6.6 g/dL (6.3-8.3)
[2019-04-16 08:14] LABS: HEMOGLOBIN A1C 8.9 % (4.8-6.0)
[2019-04-16] MEDS ORDERED: DIPRIVAN 1% ONE (08:52)
[2019-04-16] MEDS ORDERED: XYLOCAINE-MPF 2% ONE (08:52)
[2019-04-16] MEDS ORDERED: NORCURON ONE (08:58)
[2019-04-16] MEDS ORDERED: STERILE WATER INJ. ONE (08:58)
[2019-04-16] MEDS ORDERED: FENTANYL ONE (11:04)
[2019-04-16] MEDS: DILAUDID ONE ×4 (11:54→12:15)
[2019-04-16] MEDS ORDERED: PHENERGAN ONE (11:54)
[2019-04-16] MEDS: CYMBALTA PO SCH (13:36)
[2019-04-16] MEDS: CENTRUM SILVER PO SCH (13:37)
[2019-04-16] MEDS: VITAMIN D PO SCH (13:37)
[2019-04-16] MEDS: COZAAR PO SCH (13:37)
--- NOTE | 2019-04-16 13:58 | PROGRESS NOTE ---
DATE: 04/16/2019 SUBJECTIVE: This patient seems to be stable. She is complaining of some abdominal discomfort at the level of the wound. The wound is covered but it has a defect in the middle of the incision with some pus coming out from it, no blood. PHYSICAL EXAMINATION: Vital Signs: Temperature 97.8 degrees, pulse 82, respiratory rate 11, blood pressure 138/68, oxygen saturation 98 on room air. HEENT: Head normocephalic. No trauma. PERRLA. Neck: Supple. No JVD. No masses. Central trachea. Chest: Clear to auscultation. No wheezing. No rales. Abdomen: Soft. She has a midline surgical scar with erythema around it. In the middle of the incision, there is an opening with some pus coming out. It is tender to palpation. Neurological Examination: The patient is awake and alert. She is oriented x3. No focal deficits. Lower Extremities: No edema, no clubbing, no cyanosis. Laboratory: WBC 10.3, hemoglobin 11.4, hematocrit 35.5, platelets 292,000. Sodium 133, potassium 3.6, chloride 98, bicarbonate 23, BUN 9, creatinine 0.6, glucose 279, hemoglobin A1c 8.9, calcium 8.6, albumin 3.1. ASSESSMENT AND PLAN: 1. Abscess in the subcutaneous fat tissue of the anterior pelvis, related to previous surgery. Continue with antibiotics. Surgery department on board. Likely, this abscess is going to be drained today. She has been placed on ciprofloxacin and Flagyl. I will wait for the cultures. White blood cell count seems to be stabilizing. No fever. 2. Anterior abdominal wall wound which is draining some pus. Aware. 3. Type 2 diabetes. Hemoglobin A1c is 8.9. We will continue with the same management, sliding scale insulin and pattern of blood sugar. I will continue with her Januvia as well. 4. Hypertension. Continue with the same treatment. 5. Hypothyroidism. Continue with levothyroxine. 6. Depression. Continue with Cymbalta. 7. Hyperlipidemia. Continue with the same treatment. 8. Chronic pain. Aware. 9. Deep vein thrombosis prophylaxis with sequential compression devices. 10. Gastrointestinal prophylaxis with proton pump inhibitors. cc: Janes Leigh MD
--- NOTE | 2019-04-16 16:13 | OPERATIVE NOTE ---
PROCEDURE DATE: 04/16/2019 ADMITTING DIAGNOSES: 1. Surgical site infection. 2. History of perforated diverticulitis. POSTOPERATIVE DIAGNOSES: 1. Surgical site infection. 2. History of perforated diverticulitis. PROCEDURE PERFORMED: Midline wound exploration, incision and drainage with washout and placement Clinton drain. ESTIMATED BLOOD LOSS: 10 mL. SPECIMENS: Wound cultures. ANESTHESIA: General. INDICATIONS: A 58-year-old female with obesity, diabetes, and chronic pain with indwelling pain pump who developed a fluid collection in a lower midline wound that was ineffectively drained at the bedside and needed further operative drainage. OPERATIVE FINDINGS: In the lower midline wound there was a large pocket of purulent material. Fascia was intact. OPERATIVE NOTE: Risks, benefits and alternatives were discussed with the patient. She consented to the procedure. She was seen preoperatively. Surgical site was confirmed. Taken to operating room, placed supine position, general anesthesia induced. Her abdomen was prepped with Betadine and draped in the usual fashion. After time-out, we made an incision in the lower midline and probed down and the pocket of pus was encountered. We cultured this and suctioned it until clear. The fascia was intact. There were no palpable foreign bodies within the wound. We then extended more superficial wound and copiously irrigated with lavage solution through the wound and then tunneled the Clinton drain through this, secured with silk sutures. Tolerated well. ABD tape dressing was applied. She was awoken and transferred to recovery. I spoke with her . cc: Radha Craven MD
[2019-04-16] MEDS ORDERED: NS 500 ML IV ONE (18:05)
[2019-04-16] MEDS: VANCOMYCIN 1 GM/NS 1 GM/250 ML IVPB IV SCH (19:34)
[2019-04-16] MEDS ORDERED: MIRAPEX PO SCH (21:00)
[2019-04-16] MEDS: LIPITOR PO SCH (21:09)
[2019-04-17] MEDS: NS 1,000 ML IV SCH ×2 (00:43→14:46)
[2019-04-17] MEDS: CIPRO 400 MG/D5W 400 MG/200 ML IVPB IV SCH (01:15)
[2019-04-17] MEDS: DILAUDID IV PRN ×6 (02:43→22:02)
[2019-04-17] MEDS: ZOFRAN IV PRN ×6 (02:43→22:02)
[2019-04-17] MEDS: FLAGYL 500 MG/NS 500 MG/100 ML IVPB IV SCH (04:48)
[2019-04-17] MEDS: VANCOMYCIN 1 GM/NS 1 GM/250 ML IVPB IV SCH ×2 (06:07→17:54)
[2019-04-17] MEDS: PRILOSEC PO SCH (06:12)
[2019-04-17] MEDS: TYLENOL PO PRN (06:28)
[2019-04-17] MEDS: HUMULIN R SUBQ SCH ×4 (06:30→22:09)
[2019-04-17 07:04] LABS: BASO# 0.03 X1000 (0.0-0.2); BASO% 0.4 % (0.0-0.8); EOS# 0.28 X1000 (0.0-0.7); EOS% 3.9 % (0.0-10.0); HEMATOCRIT 35.8 % (37.0-47.0); HEMOGLOBIN 11.2 g/dL (12.0-16.0); LYMPH# 1.83 X1000 (1.2-3.4); LYMPH% 25.4 % (20.5-51.1); MCH 27.3 PG (27-31); MCHC 31.3 g/dL (33-37); MCV 87.1 FL (81-99); MONO# 0.55 X1000 (0.11-0.59); MONO% 7.6 % (1.7-9.3); MPV 11.3 FL (7.4-10.4); NEUT# 4.52 X1000 (1.4-6.5); NEUT% 62.7 % (42.2-75.2); PLT 287 X1000 (130-400); RBC 4.11 XMIL (4.2-5.4); RDW 13.2 % (11.5-14.5); WBC 7.21 X1000 (4.8-10.8)
[2019-04-17 07:23] LABS: AGAP 11; BUN 8 mg/dL (8-22); CALCIUM 8.6 mg/dL (8.8-10.2); CHLORIDE 100 mmol/L (98-107); COSMO 280; CREATININE 0.6 mg/dL (0.5-0.9); ESTIMATED GFR > 60; GLUCOSE 233 mg/dL (70-104); SODIUM 137 mmol/L (136-145); TCO2 26 mmol/L (25-35)
--- NOTE | 2019-04-17 08:47 | PROGRESS NOTE ---
DATE: 04/17/2019 SUBJECTIVE: Ms. Em Orellana is a 58-year-old white female, who underwent an open sigmoid colon resection for recurrent complicated sigmoid diverticulitis. She began feeling pressure in her lower midline incision last week and was seen by Dr. Craven Wednesday. The wound was opened and some of her fluid drained, but she began collecting fluid again in the subcutaneous tissue of her wound over the weekend, and he admitted her through the hospitalist on 04/15/2019 and operated on her yesterday, Wednesday afternoon, to clean out a superficial wound infection. He left a Ricky drain. She is about a month out from her colon resection. This morning I changed the dressing. There was no adrienne purulence. Her fascia appears to be intact. The Ricky drain is still in place. She is on IV antibiotics. Her white blood cell count has been normal. Her sugars are slightly elevated. She is on a diabetic diet. Will continue wound care with dressing changes and IV antibiotics, and at discharge we need to arrange wound care, either by her or home health. cc: Jenny Corado MD
[2019-04-17] MEDS: COZAAR PO SCH (09:13)
[2019-04-17] MEDS: CYMBALTA PO SCH (09:13)
[2019-04-17] MEDS: JANUVIA PO SCH (09:13)
[2019-04-17] MEDS: CENTRUM SILVER PO SCH (09:13)
[2019-04-17] MEDS: PERIDEX MT SCH ×2 (09:14→22:01)
[2019-04-17] MEDS: JARDIANCE PO SCH (09:53)
--- NOTE | 2019-04-17 10:48 | PROGRESS NOTE ---
DATE: 04/17/2019 SUBJECTIVE: The patient seems to be resting comfortably in bed. She is complaining of some discomfort at the level of the wound in the abdominal area. We have a positive culture from the abdominal wound that showed gram-positive cocci. I will stop the antibiotics except the vancomycin. Her hemoglobin A1c is 8.9. I will continue with her home medications. OBJECTIVE: Vital Signs: Temperature 98.2 degrees, pulse 74, respiratory rate 18, blood pressure 148/107, oxygen saturation 96 on room air. HEENT: Head normocephalic. No trauma. PERRLA. Neck: Supple. No JVD. No masses. Central trachea. Chest: Clear to auscultation. No wheezing. No rales. Abdomen: Soft. Midline surgical scar which is covered with a dressing. Some erythema around the lesion. Neurological: The patient is awake. She is alert. She is oriented x3. No focal deficits. Lower Extremities: No edema, no clubbing, no cyanosis. LABORATORY DATA: WBC 7.2, hemoglobin 11.2, hematocrit 35.8, platelets 297,000. Sodium 137, potassium 4.0, chloride 100, bicarbonate 26, BUN 8, creatinine 0.6, glucose 233, calcium 8.6. ASSESSMENT AND PLAN: 1. Abscess in the subcutaneous fat tissue of the anterior pelvis related to previous surgery. Continue with antibiotics. Culture showed gram-positive cocci. She yesterday went for surgery and they did a midline wound exploration, incision and drainage with washout and placement of a Ricky drain. 2. Type 2 diabetes with hemoglobin A1c of 8.9. Continue with sliding scale insulin and pattern blood sugar. I have placed this patient back on her medications. 3. Hypertension. Continue with same management. 4. Hypothyroidism. Continue with levothyroxine. 5. Depression. Continue with Cymbalta. 6. Hyperlipidemia. Continue with same treatment. 7. Chronic pain. Aware. 8. Deep vein thrombosis prophylaxis with sequential compression devices. 9. Gastrointestinal prophylaxis with proton pump inhibitors. cc: Janes Leigh MD
[2019-04-17] MEDS: SYNTHROID PO SCH (11:23)
[2019-04-17] MEDS ORDERED: APRESOLINE IV PRN (20:58)
[2019-04-17] MEDS: MIRAPEX PO SCH (22:02)
[2019-04-17] MEDS: LIPITOR PO SCH (22:02)
[2019-04-18] MEDS: DILAUDID IV PRN ×5 (02:12→20:28)
[2019-04-18] MEDS: ZOFRAN IV PRN ×5 (02:14→23:34)
[2019-04-18] MEDS: VANCOMYCIN 1 GM/NS 1 GM/250 ML IVPB IV SCH ×2 (06:02→17:22)
[2019-04-18] MEDS: PROTONIX PO SCH (06:02)
[2019-04-18] MEDS: HUMULIN R SUBQ SCH ×4 (06:41→20:45)
[2019-04-18 07:36] LABS: AGAP 13; BUN 8 mg/dL (8-22); CALCIUM 9.3 mg/dL (8.8-10.2); CHLORIDE 100 mmol/L (98-107); COSMO 280; CREATININE 0.6 mg/dL (0.5-0.9); ESTIMATED GFR > 60; GLUCOSE 141 mg/dL (70-104); POTASSIUM 3.9 mmol/L (3.5-5.1); SODIUM 140 mmol/L (136-145); TCO2 27 mmol/L (25-35)
[2019-04-18] MEDS: CENTRUM SILVER PO SCH (08:30)
[2019-04-18] MEDS: CYMBALTA PO SCH (08:30)
[2019-04-18] MEDS: JANUVIA PO SCH (08:30)
[2019-04-18] MEDS: JARDIANCE PO SCH (08:31)
[2019-04-18] MEDS: PERIDEX MT SCH ×2 (08:31→20:31)
[2019-04-18] MEDS: COZAAR PO SCH (08:31)
[2019-04-18] MEDS: NS 1,000 ML IV SCH ×2 (08:38→23:00)
[2019-04-18] MEDS ORDERED: SYNTHROID PO SCH (09:00)
[2019-04-18] MEDS: PHENERGAN IV PRN ×3 (09:19→20:28)
[2019-04-18] MEDS: SODIUM CHLORIDE 0.9% INJ PRN ×2 (14:25→20:28)
--- NOTE | 2019-04-18 16:07 | PROGRESS NOTE ---
DATE: 04/18/2019 SUBJECTIVE: This patient had some episodes of nausea today that improved after getting Phenergan. We have a positive culture that showed Streptococcus agalactiae group B that is sensitive to penicillin, so probably upon discharge I will put this patient on penicillin VK for a few days to see how she does. For now, I will continue with vancomycin. OBJECTIVE: Vital Signs: Temperature 98.5 degrees, pulse 87, respiratory rate 20, blood pressure 140/71, and oxygen saturation 97% on room air. HEENT: Head normocephalic. No trauma. PERRLA. Neck: Supple. No JVD. No masses. Central trachea. Chest: Clear to auscultation. No wheezing. No rales. Abdomen: Soft. Midline surgical scar which is covered with a dressing. She has some erythema around the lesion. Neurological: The patient is awake. She is alert. She is oriented x3. No focal deficits. Extremities: Lower extremities with no edema. No clubbing. No cyanosis. LABORATORY: Sodium 140, potassium 3.9, chloride 100, bicarbonate 27, BUN 8, creatinine 0.6 glucose 141, and calcium 9.3. ASSESSMENT AND PLAN: 1. Surgical site infection in a patient with a history of perforated diverticulitis, status post midline wound exploration, incision and drainage with washout, and placement of [place] drain, postoperative day #2. This patient seems to be doing better. We have a positive culture from that area that showed streptococcal agalactiae that is sensitive to not only vancomycin but penicillins. My plan is to discharge this patient with penicillin VK once she is ready and cleared from surgery department. 2. Nausea. I will continue with same management. She seems to be getting a little bit better. 3. Type 2 diabetes with a hemoglobin A1c of 8.9. Continue with sliding scale insulin and pattern of blood sugar. I have placed this patient back on her medication, and the blood sugar seems to be better. 4. Hypertension. Continue with same management. 5. Hypothyroidism. Continue with levothyroxine. She has been taking 137 mcg p.o. every other day and also 150 mcg p.o. every other day. She just takes 1 of 137, and then the next day 150 and so on. 6. Depression. Continue with Cymbalta. 7. Hyperlipidemia. Continue with same treatment. 8. Chronic pain. Aware. 9. Deep vein thrombosis prophylaxis with sequential compression devices. 10. GI prophylaxis with proton pump inhibitors. cc: Janes Leigh MD
--- NOTE | 2019-04-18 17:07 | PROGRESS NOTE ---
DATE: 04/18/2019 Ms Em Orellana has undergone a sigmoid colectomy foe recurrent complicated sigmoid diverticulitis and her postoperative convalescence has been complicated by a Streptococcus wound infection and she was admitted over the weekend by my partner, Dr. Esteban Craven and was taken to the operating room, where her wound was opened and irrigated out. A Ricky drain was left. She was admitted to the hospital and she has been receiving IV antibiotics. Clinically I feel she is improving with decreased drainage from her wound. I removed the [place] drain today and redressed her dressing. Her heart rate is 84, blood pressure 140/71, O2 saturation 99%. She is afebrile. She is receiving IV vancomycin. Her last white blood cell count was normal. She is tolerating a regular diet and she is ambulating in the halls. PLAN: I changed her wound dressing. I removed her Ricky drain from her midline wound. I cleansed it with hydrogen peroxide. We will continue IV antibiotics, allow her to have a regular diet and performed wound care. Hopefully, she will be able to be discharged on p.o. antibiotics soon. cc: Jenny Corado MD
[2019-04-18] MEDS ORDERED: VANCOMYCIN IV PER PHARMACY MISC SCH (17:15)
[2019-04-18] MEDS: MIRAPEX PO SCH (20:31)
[2019-04-18] MEDS: LIPITOR PO SCH (20:31)
[2019-04-18] MEDS: VANCOMYCIN 1,300 MG in NS 250 ML IV SCH (20:36)
[2019-04-19] MEDS: PHENERGAN IV PRN ×2 (00:48→05:27)
[2019-04-19] MEDS: SODIUM CHLORIDE 0.9% INJ PRN ×2 (00:48→05:27)
[2019-04-19] MEDS: DILAUDID IV PRN ×3 (00:49→10:02)
[2019-04-19] MEDS: ZOFRAN IV PRN ×2 (03:45→08:07)
[2019-04-19] MEDS: PROTONIX PO SCH ×2 (05:28→06:46)
[2019-04-19] MEDS: HUMULIN R SUBQ SCH ×2 (06:46→10:50)
[2019-04-19 06:59] LABS: BASO# 0.02 X1000 (0.0-0.2); BASO% 0.3 % (0.0-0.8); EOS# 0.35 X1000 (0.0-0.7); EOS% 4.7 % (0.0-10.0); HEMATOCRIT 35.8 % (37.0-47.0); HEMOGLOBIN 11.1 g/dL (12.0-16.0); IMM GRAN# 0.02 X1000 (0.0-0.04); IMM GRAN% 0.3 % (0.0-0.5); LYMPH# 2.35 X1000 (1.2-3.4); LYMPH% 31.4 % (20.5-51.1); MCH 27.2 PG (27-31); MCV 87.7 FL (81-99); MONO# 0.61 X1000 (0.11-0.59); MONO% 8.1 % (1.7-9.3); NEUT# 4.14 X1000 (1.4-6.5); NEUT% 55.2 % (42.2-75.2); PLT 296 X1000 (130-400); RBC 4.08 XMIL (4.2-5.4); RDW 13.6 % (11.5-14.5); WBC 7.49 X1000 (4.8-10.8)
[2019-04-19 07:31] LABS: AGAP 11; BUN 11 mg/dL (8-22); CALCIUM 8.3 mg/dL (8.8-10.2); CHLORIDE 103 mmol/L (98-107); COSMO 282; CREATININE 0.7 mg/dL (0.5-0.9); ESTIMATED GFR > 60; GLUCOSE 152 mg/dL (70-104); POTASSIUM 3.8 mmol/L (3.5-5.1); SODIUM 140 mmol/L (136-145); TCO2 26 mmol/L (25-35)
[2019-04-19 07:44] VITALS: BP 152/90
[2019-04-19] MEDS: VANCOMYCIN 1,300 MG in NS 250 ML IV SCH (08:06)
[2019-04-19] MEDS: COZAAR PO SCH (08:08)
[2019-04-19] MEDS: CYMBALTA PO SCH (08:08)
[2019-04-19] MEDS: JARDIANCE PO SCH (08:08)
[2019-04-19] MEDS: PERIDEX MT SCH (08:09)
[2019-04-19] MEDS: JANUVIA PO SCH (08:09)
[2019-04-19] MEDS: CENTRUM SILVER PO SCH (08:09)
[2019-04-19] MEDS: VITAMIN D PO SCH (08:09)
[2019-04-19] MEDS: SYNTHROID PO SCH (08:10)
[2019-04-19] MEDS ORDERED: CULTURELLE PO SCH (09:00)
[2019-04-19] MEDS ORDERED: MORPHINE IR PO PRN (09:59)
--- NOTE | 2019-04-19 10:23 | PROGRESS NOTE ---
DATE: 04/19/2019 SUBJECTIVE: The patient seems to be doing better. She is complaining of some nausea today. She has a positive culture from the abdominal area that showed Streptococcus agalactiae group B, that is sensitive to penicillin. She is getting vancomycin at this moment, which I will continue, but I believe upon discharge she can be discharged if Penicillin VK to complete at least 10 to 14 days. OBJECTIVE: Vital Signs: Temperature 98.6 degrees, pulse 81, respiratory rate 20, blood pressure 152/90, oxygen saturation 98 on room air. HEENT: Head normocephalic, no trauma. PERRLA. Neck: Supple. No JVD. No masses. Central trachea. Chest: Clear to auscultation. No wheezing. No rales. Abdomen: Soft, is tender to palpation at the level of the midline wound, perioperative area, positive bowel sounds. No peritoneal irritation. Extremities: No edema, no clubbing, no cyanosis. Neurological examination: The patient is awake, alert. She is oriented x3. No focal deficits. LABORATORY: WBC 7.4, hemoglobin 11.1, hematocrit 35.8, platelet 296. Sodium 140, potassium 3.8, chloride 103, bicarbonate 26. BUN 14, creatinine 0.7, glucose 152, calcium 8.3. ASSESSMENT AND PLAN: 1. Surgical site infection in a patient with history of perforated diverticulitis, status post midline wound exploration, incision and drainage with washout and placement of [place] drain, postoperative day #3. It looks like the drain has been removed. She seems to be doing better. She is complaining of some nausea. We have a positive culture that showed Streptococcus agalactiae group B that is sensitive not only to vancomycin, but penicillin. Upon discharge, this patient can go home probably with penicillin VK to complete 10 to 14 days of treatment. 2. Nausea. I will continue with same management. I will add probiotics, and she is on Protonix oral as well. 3. Type 2 diabetes with a hemoglobin A1c of 8.9. Continue with sliding scale insulin and pattern blood sugar. I placed this patient back on her medications. Blood sugar seems to be stable. 4. Hypertension. Will continue same management. 5. Hypothyroidism. She is alternating levothyroxine 137 mcg with 150 mcg every other day. 6. Depression. Continue with Cymbalta. 7. Hyperlipidemia. Continue with same treatment. 8. Chronic pain. Aware. 9. Deep vein thrombosis prophylaxis with sequential compression devices. 10. Gastrointestinal prophylaxis with proton pump inhibitors. cc: Janes Leigh MD
[2019-04-19] MEDS: NS 1,000 ML IV SCH (10:50)
--- NOTE | 2019-04-19 22:21 | DISCHARGE SUMMARY ---
ADMISSION DATE: 04/15/2019 DISCHARGE DATE: 04/19/2019 ADMITTING DIAGNOSIS: Midline wound infection status post sigmoid colectomy for diverticulitis. POSTOPERATIVE DIAGNOSIS: Midline wound infection status post sigmoid colectomy for diverticulitis. PRINCIPAL PROCEDURE: Midline wound exploration incision and drainage with washout and placement of Ricky drain per Dr. Craven on 04/16/2019. DISCHARGE DISABILITY: Full. DISCHARGE DIET: Regular. DISCHARGE DISPOSITION: She will return to our outpatient offices next week for followup. DISCHARGE MEDICATIONS: I added Keflex 500 mg q.i.d. as discharge medication. HOSPITAL COURSE: Ms. Em Orellana is an overweight 58-year-old white female who underwent an open sigmoid colon resection for recurrent complicated sigmoid colon diverticulitis. She has been followed in our outpatient office since surgery and was felt to be doing well but she developed a fluid collection in her midline wound and was seen by Dr. Craven last Wednesday. She had some fluid drained in the office but she presented to the emergency department on 04/15/2019 with ongoing symptoms of her midline wound. She was taken to surgery per Dr. Craven on 04/16/2019 and underwent incision and drainage of part of her wound for a soft tissue wound infection. A Ricky drain was left. She went to the recovery room then remained hospitalized on IV antibiotics and I took over her care on Wednesday. With IV antibiotics and her surgery, her white blood cell count went to normal. There is no cellulitis involving her midline incision and it had decreasing drainage. It was felt safe on 04/19/2019 to discharge her to her home under the care of her . I have taught them how to care for the wound and I will follow her closely in our outpatient clinic. Her wound culture showed strep which was sensitive to all antibiotics except clindamycin. I will send her home on Keflex 500 mg p.o. q.i.d. in addition to local wound care. She knows to contact me with any problems. On discharge, her heart rate was 81, blood pressure 152/90, O2 saturation 98%. She was afebrile. While hospitalized, she received IV vancomycin. Her white blood cell count at discharge was 7.5, hematocrit 36%. Electrolytes were within normal limits. Her sugar has been 133 to 251. cc: Jenny Corado MD
--- NOTE | 2019-04-20 08:04 | DISCHARGE SUMMARY ---
ADMISSION DATE: 04/15/2019 DISCHARGE DATE: 04/19/2019 DISCHARGE DIAGNOSES: 1. Surgical site infection in a patient with history of perforated diverticulitis status post midline wound exploration, incision and drainage with washout and placement of Ricky drain. 2. Abdominal wound infection due to streptococcal agalactiae group B. 3. Nausea. 4. Type 2 diabetes with a hemoglobin A1c of 8.9. 5. Hypertension. 6. Hypothyroidism. 7. Depression. 8. Hyperlipidemia. 9. Chronic pain. PROCEDURES PERFORMED: Abdomen and pelvis CT scan dated 04/15/2019 impression: Abscess in the subcutaneous fat of the anterior pelvis, fatty infiltration of the liver, no pericolonic abscess on the current exam. HOSPITAL COURSE: A 58-year-old female with a history of diabetes, hypothyroidism, hypertension, hyperlipidemia, as well as chronic back pain, had colectomy done on 03/22/2019 for diverticulitis. Following the procedure, the patient developed lower abdominal pain as well as fever along with redness at the surgical site. The patient was seen at surgeon's office on 04/14/2019, and some purulent material was expressed from the surgical site. The patient felt some relief only for her symptoms to recur and she subsequently presented to the emergency department on 04/15/2019 and was admitted after having a CT scan done of the abdomen and pelvis that showed an abscess in the subcutaneous fat of the anterior pelvis. The patient was started on antibiotics. We have a positive culture that showed Streptococcus agalactiae group B. She was placed on vancomycin after that. She went to the OR for a midline wound exploration, incision and drainage with washout and placement of [place] drain. She was improving on a daily basis and actually her white blood cell count normalized. She was having on and off some nausea and some upset abdomen. Her blood sugar initially was not well controlled but then it was better at the end of this hospitalization. Today this patient is feeling much better. The Ricky has been removed I think yesterday. The surgeon has decided to discharge this patient today. I will only do one change with her antibiotics, instead of Keflex I will send her home with penicillin VK 500 mg q.8 hours that provides better coverage for this bacteria. The patient has been notified by the charge nurse. At the moment of discharge, the patient was in a stable medical condition, tolerating p.o. and ambulating. PHYSICAL EXAMINATION: Vital Signs: Temperature 98.6 degrees, pulse 81, respiratory rate 20, blood pressure 152/90, oxygen saturation 98 on room air. HEENT: Head normocephalic, no trauma. PERRLA. Neck is supple. No JVD. No masses. Central trachea. Chest: Clear to auscultation. No wheezing. No rales. Abdomen: Soft. Midline wound is covered with a dressing that looks clean, dry, and intact. Positive bowel sounds. Extremities: No edema, no clubbing, no cyanosis. Neurological: The patient is awake and alert. She is oriented x3. No focal deficits. LABORATORY: WBC 7.4, hemoglobin 11.1, hematocrit 35.8, platelets 296,000. Sodium 140, potassium 3.8, chloride 103, bicarbonate 26, BUN 11, creatinine 0.7, glucose 152, calcium 8.3. DISCHARGE MEDICATIONS: Aspirin 81 mg p.o. daily, Lipitor 40 mg p.o. at bedtime, duloxetine 60 mg p.o. daily, Jardiance 25 mg p.o. daily, vitamin D2 5000 units p.o. as directed, Synthroid 137 mcg p.o. every other day, and she is alternating this with 150 mcg p.o. every other day. Losartan 50 mg p.o. daily, morphine 15 mg p.o. t.i.d. as needed, Centrum Silver 1 tablet p.o. daily, Protonix 40 mg p.o. daily, penicillin VK 500 mg p.o. every 8 hours to complete 10 days of treatment, pramipexole 0.5 mg p.o. at bedtime, Phenergan 25 mg p.o. q.6 hours as needed, and Januvia 100 mg p.o. daily. TIME ATTESTATION: Time discharging this patient is 20 minutes. cc: Janes Leigh MD
== END 2019-04-19 11:40 | disposition home or self-care (01) | DRG 857 ==
LOC: ED 16:13 → 4N 22:51 → SUATTDRO 22:51
PROVIDERS: ATTEND Internal Medicine
PROC: GE.EXPL (2019-04-16 10:53)